=== PATIENT | male | born 1940 | race Caucasian/White ===

== ENCOUNTER 2016-10-06 06:29 | Emergency (ER) | payer OTHER ==
[~2016-10-06] VITALS: Ht 162.6 cm; Wt 80.8 kg
[~2016-10-06 06:29] MED LIST: CRG125 PO; HYZ/10015 PO; NRV/10 PO; PLV75 PO; PRD10 PO; PRLSR20 PO
[2016-10-06 06:31] VITALS: TEMP 36.5; Ht 162.6 cm; Wt 80.8 kg
[2016-10-06] MEDS ORDERED: PLV75 PO (06:47)
[2016-10-06] MEDS ORDERED: LOSA100T65 PO (06:47)
[2016-10-06] MEDS ORDERED: VNTHFA/IN PO (06:47)
[2016-10-06] MEDS ORDERED: LSX20 PO (06:47)
[2016-10-06] MEDS ORDERED: MoRPHine SULFATE 10 MG/ML CARP/VIAL IM STA (06:58)
--- NOTE | 2016-10-06 07:23 | DIAGNOSTIC IMAGING REPORT ---
LUMBAR SPINE 5 VIEWS HISTORY: Right-sided sciatica. COMPARISON: None. FINDINGS: There is no fracture. No subluxation. Moderate to severe disc space narrowing at L4-5 and mild disc space narrowing at L5-S1. There are endplate osteophytes seen throughout the lumbar spine. Moderate facet degenerative changes within the lower lumbar spine. IMPRESSION: No fracture or subluxation within the lumbar spine. Degenerative changes as described above. Electronically signed by: Marlon Lobo M.D. 10/06/2016 7:22 AM Dictated Date/Time: 10/06/2016 7:20 AM
--- NOTE | 2016-10-06 07:33 | EMERGENCY ROOM VISIT NOTE ---
History Report prepared by Amilcar: Markel Cortez Under the Supervision of: Dr. Marco Decker D.O. First contact with patient: 06:39 Chief Complaint: HIP PAIN Stated Complaint: PAIN IN HIP DOWN LEG History of Present Illness The patient is a 76 year old male who presents to the Emergency Room with complaints of persistent lower back pain that started around 3 days ago. He says that the pain came on after he was mowing grass. The patient states that he was not bending, twisting, or turning while he was mowing the grass. He adds that he has had pain down his right leg as well. The patient notes that he could not sleep well the past couple nights due to the pain. He says that he has never had this pain before. The patient denies any recent trauma or falls. He also denies any chest pain, new shortness of breath, abdominal pain, new cough, or weakness or numbness in his legs. The patient has not talked to his primary care physician about this. He says that he has hypertension, and he had his blood pressure medications recently switched. The patient did not take his medications this morning because he was concerned that they may be related to his pain. He says that he usually takes his medications around 0500. The patient says that his blood pressure usually runs around 140. He is an ex- smoker. The patient had a CT of his abdomen/pelvis on February 2014, which showed unremarkable vasculature. No numbness in his groin. Able to move his bowels and urinated without difficulty. Source of History: patient Onset: 3 days ago Position: back (lower) Symptom Intensity: causes him to have hard time sleeping Timing: other (persistent) Associated Symptoms: No cough (new), No chest pain, No SOB (new), No abdominal pain, No weakness (in legs), No numbness (in legs) Note: Associated symptoms: Pain down right leg. No recent trauma or falls. Review of Systems See HPI for pertinent positives & negatives. A total of 10 systems reviewed and were otherwise negative. Past Medical & Surgical Medical Problems: (1) Benign hypertension (2) Blindness of one eye (3) Carotid artery occlusion (4) Carpal tunnel syndrome (5) Cerebrovascular disease (6) Diverticular disease of colon (7) Gastroesophageal reflux disease (8) Hypertension Nos (9) Sleep apnea Surgical Problems: (1) s/p cardiac cath (2) s/p carpal tunnel surgery (3) s/p cataract surgery Family History Patient reports no known family medical history. Social History Smoking Status: Former Smoker Alcohol Use: occasionally Drug Use: none Marital Status: Housing Status: lives with significant other Occupation Status: retired Current/Historical Medications Scheduled Amlodipine Besylate (Amlodipine Besylate), 10 MG PO DAILY Carvedilol (Carvedilol), 12.5 MG PO BID Clopidogrel Bisulfate (Clopidogrel), 75 MG PO DAILYBB Furosemide (Furosemide), 10 MG PO DAILY Losartan Potassium (Cozaar), 100 MG PO DAILY Omeprazole (Prilosec), 20 MG PO DAILY Prednisone (Prednisone Tab), 1 TAB PO DAILY Scheduled PRN Albuterol Hfa (Ventolin Hfa), 2 PUFFS PO Q4 PRN for Wheezing Oxycodone Immediate Rel Tab (Roxicodone Ir), 5 MG PO Q6H PRN for Pain Allergies Coded Allergies: No Known Allergies (Unverified , 10/06/16) Physical Exam Vital Signs Date Time Temp Pulse Resp B/P (MAP) Pulse Ox O2 Delivery O2 Flow Rate FiO2 10/06/16 07:52 60 18 187/73 95 10/06/16 06:31 36.5 63 24 212/69 97 Room Air Physical Exam GENERAL: sitting up in chair, disheveled, no acute distress, non toxic EYE EXAM: normal conjunctiva OROPHARYNX: no exudate, no erythema, lips, buccal mucosa, and tongue normal and mucous membranes are moist NECK: supple, no nuchal rigidity, no adenopathy, non-tender LUNGS: Clear to auscultation. Normal chest wall mechanics HEART: no murmurs, S1 normal and S2 normal ABDOMEN: abdomen soft, non-tender, normo-active bowel sounds, no masses, no rebound or guarding. BACK: Acute reproducible tenderness over right SI joint tracking through his gluteus, down back of right leg SKIN: no rashes and no bruising UPPER EXTREMITIES: upper extremities are grossly normal. LOWER EXTREMITIES: Flexion extension of hip, knee, ankle, and EHL 5/5 bilaterally, patellar and Achilles reflexes are 2/4 bilaterally, gross sensations intact, able to walk on heels and toes. NEURO EXAM: Normal sensorium, cranial nerves II-XII grossly intact, normal speech, no gross weakness of arms. Medical Decision & Procedures ER Provider Diagnostic Interpretation: X-ray results as stated below per my review and the radiologist's interpretation : LUMBAR SPINE 5 VIEWS HISTORY: Right-sided sciatica. COMPARISON: None. FINDINGS: There is no fracture. No subluxation. Moderate to severe disc space narrowing at L4-5 and mild disc space narrowing at L5-S1. There are endplate osteophytes seen throughout the lumbar spine. Moderate facet degenerative changes within the lower lumbar spine. IMPRESSION: No fracture or subluxation within the lumbar spine. Degenerative changes as described above. Electronically signed by: Marlon Lobo M.D. 10/06/2016 7:22 AM Dictated Date/Time: 10/06/2016 7:20 AM Medications Administered Medications (Trade) Dose Ordered Sig/[place] Route Start Time Stop Time Status Last Admin Dose Admin Morphine Sulfate (MoRPHine SULFATE INJ) 6 mg NOW STAT IM 10/06/16 06:58 10/06/16 06:59 DC 10/06/16 07:04 6 MG ED Course ED COURSE: Vital signs were reviewed and showed hypertensive vitals. The patients medical record was reviewed The above diagnostic studies were performed and reviewed. ED treatments and interventions as stated above. 0651: The patient was evaluated in room B3B. A complete history and physical examination was performed. 0658: Ordered Morphine Sulfate Inj 6 mg IM. 0740: Upon reevaluation, the patient is feeling significantly better.I discussed my findings with the patient and he understands and agrees with the treatment plan. Based on the patients age, coexisting illnesses, exam and lab findings the decision to treat as an outpatient was made. The patient remained stable while under my care. The patient appeared well at the time of discharge. Medical Decision Differential diagnoses includes but is not limited to lumbar radiculopathy, muscle strain, facture, cauda equina, mass, and disc herniation. Medication Reconciliation: I attest that I have personally reviewed the patient' s current medication list. Blood pressure screening: Patient was found to have an elevated blood pressure and was referred to their primary doctor for recheck and further treatment. I instructed the patient on hypertension. Patient is a 76-year-old male who presents the ER with right lower back pain which radiates from his SI joint down the back of his right leg. It's reproducible on exam. He is neurologically intact able walk on heels and toes. Patellar and Achilles reflexes are intact. No weakness in his legs. No signs of cauda equina. He was hypertensive but notes he did not take any of his blood pressure medications this morning. He has no abdominal pain. X-rays of his lumbar spine are unremarkable. He is not diabetic. He is given IM morphine with improvement of his pain. He was discharged with sciatica and instructed to take steroids and pain medications as prescribed. Discussed with Pt concerning signs and symptoms to watch out for. Pt was instructed to follow up with their PCP and discussed with the patient their option to return to the ED at anytime for persistent or worsening symptoms. The appropriate anticipatory guidance and out-patient management, including indications for return to the emergency department, were explained at length to the patient and understood. [place] Drug Monitoring [place] Search Results: patient reviewed within database, no issues identified Impression Primary Impression: Sciatica Additional Impression: Hypertension Scribe Attestation The scribe's documentation has been prepared under my direction and personally reviewed by me in its entirety. I confirm that the note above accurately reflects all work, treatment, procedures, and medical decision making performed by me. Departure Information Dispostion Home / Self-Care Prescriptions Prednisone (Prednisone Tab) 20 Mg Tab 1 TAB PO DAILY for 5 Days, #5 TAB Prov: Marco Decker, DO 10/06/16 Oxycodone Immediate Rel Tab (ROXICODONE IR) 5 Mg Tab 5 MG PO Q6H Y for Pain, #20 TAB Prov: Marco Decker, DO 10/06/16 Referrals Richard Domínguez M.D. ([facility]) (PCP) Forms HOME CARE DOCUMENTATION FORM, IMPORTANT VISIT INFORMATION, WORK / SCHOOL INSTRUCTIONS Patient Instructions ED Sciatica, [facility] Additional Instructions Please follow up with your primary care doctor with in the next 24 hours. Any worsening of your symptoms, please return to the ED immediately. This includes weakness or numbness in the leg unable to move your bowels, unable to urinate, severe abdominal pain, passing out, or any other concerning signs or symptoms from your standpoint. You were given medications during this visit that will inhibit your ability to drive, operate machinery and work. Please do NOT drive, operate machinery or work for the next 12hrs. You were also given a prescription for a narcotic/oxy IR. While taking this medication you should also not drive, operate machinery and or work. Please take stool softeners while taking the narcotics prescribed. This will prevent constipation. Problem Qualifiers Primary Impression: Sciatica Laterality: unspecified laterality Qualified Codes: M54.30 - Sciatica, unspecified side Additional Impression: Hypertension Hypertension type: unspecified secondary hypertension Qualified Codes: I15.9 - Secondary hypertension, unspecified
[2016-10-06] MEDS ORDERED: PRED20TA2 PO (07:46)
[2016-10-06] MEDS ORDERED: OXYC1TAB3 PO (07:46)
[2016-10-06 07:52] VITALS: BP 187/73; PULSE 60; O2SAT 95
== END 2016-10-06 07:52 | disposition home or self-care (01) ==
LOC: C.EDB 06:30
DX: M53.3 Sacrococcygeal disorders, not elsewhere classified (principal); I10 Essential (primary) hypertension; I65.29 Occlusion and stenosis of unspecified carotid artery; K57.30 Diverticulosis of large intestine without perforation or abscess without bleeding; K21.9 Gastro-esophageal reflux disease without esophagitis; Z86.73 Personal history of transient ischemic attack (TIA), and cerebral infarction without residual deficits; Z98.61 Coronary angioplasty status; Z98.49 Cataract extraction status, unspecified eye; Z98.890 Other specified postprocedural states; Z79.899 Other long term (current) drug therapy; Z87.891 Personal history of nicotine dependence; Z88.5 Allergy status to narcotic agent; Z88.8 Allergy status to other drugs, medicaments and biological substances

== ENCOUNTER 2016-11-08 09:17 | Emergency (ER) | payer OTHER ==
[~2016-11-08] VITALS: Ht 162.6 cm; Wt 77.5 kg
[~2016-11-08 09:17] MED LIST changes: -HYZ/10015 PO; +LOSA100T65 PO; +LSX20 PO; +OXYC1TAB3 PO; -PRD10 PO; +VNTHFA/IN PO
[2016-11-08 09:19] VITALS: TEMP 36.5; Ht 162.6 cm; Wt 77.5 kg
[2016-11-08] MEDS ORDERED: KETOROLAC TROMETHAMINE 60 MG/2 ML VIAL IM STA (09:39)
[2016-11-08] MEDS ORDERED: MoRPHine SULFATE 10 MG/ML CARP/VIAL IM STA (09:39)
--- NOTE | 2016-11-08 09:53 | EMERGENCY ROOM VISIT NOTE ---
History Report prepared by Amilcar: Cee Marie Under the Supervision of: Dr. Sawyer Edwards M.D. First contact with patient: 09:32 Chief Complaint: LEG PAIN,LEG INJURY Stated Complaint: RIGHT LEG PAIN History of Present Illness The patient is a 76 year old male who presents to the Emergency Room with complaints of worsening right leg pain that started 1 month ago. He rates his discomfort as an 8/10 in severity. The pain starts in his right hip then radiates down to his midshin. He is also experiencing numbness from his right midshin distally. He denies groin numbness. The patient states that he cannot walk or stand for prolonged amounts of time secondary to the pain. The patient states that he is urinating and having bowel movements without difficulty. The patient was evaluated in the ED 1 month ago for back pain radiating into his right leg. He states that the back pain and leg pain started after mowing the grass. The patient denies any recent falls that could have contributed to his pain. When he was evaluated in the ED 1 month ago, he had unremarkable x-rays. When he was discharged from the ED, he was prescribed prednisone and oxycodone. He states that he has taken all of both medications so he does not have any left now. The oxycodone offered minimal relief of his pain. The patient followed up with his PCP, Dr. Domínguez, and he setup physical therapy for the patient. The patient states that he has gone to physical therapy about 8 times without any relief of his symptoms. The patient called his PCP to try to setup an appointment, but he could not see the patient until Saturday and the patient states that he could not wait that long. The patient denies any history of herniated discs. Source of History: patient Onset: 1 month ago Position: leg (right) Symptom Intensity: 8/10 Quality: other (right leg pain) Timing: worsening Modifying Factors (Relieving): other (None) Associated Symptoms: + numbness (right midshin distally) Note: no groin numbness, urinating and moving bowels without difficulty Review of Systems See HPI for pertinent positives & negatives. A total of 10 systems reviewed and were otherwise negative. Past Medical & Surgical Medical Problems: (1) Benign hypertension (2) Blindness of one eye (3) Carotid artery occlusion (4) Carpal tunnel syndrome (5) Cerebrovascular disease (6) Diverticular disease of colon (7) Gastroesophageal reflux disease (8) Hypertension Nos (9) Sleep apnea Surgical Problems: (1) s/p cardiac cath (2) s/p carpal tunnel surgery (3) s/p cataract surgery Family History Patient reports no known family medical history. Social History Smoking Status: Former Smoker Alcohol Use: occasionally Drug Use: none Marital Status: Housing Status: lives with significant other Occupation Status: retired Current/Historical Medications Scheduled Amlodipine Besylate (Amlodipine Besylate), 10 MG PO DAILY Carvedilol (Carvedilol), 12.5 MG PO BID Clopidogrel Bisulfate (Clopidogrel), 75 MG PO DAILYBB Furosemide (Furosemide), 10 MG PO DAILY Losartan Potassium (Cozaar), 100 MG PO DAILY Omeprazole (Prilosec), 20 MG PO DAILY Scheduled PRN Oxycodone Ir (Roxicodone Ir), 1-2 TAB PO Q4H PRN for Pain Allergies Coded Allergies: No Known Allergies (Unverified , 11/08/16) Physical Exam Vital Signs Date Time Temp Pulse Resp B/P (MAP) Pulse Ox O2 Delivery O2 Flow Rate FiO2 11/08/16 11:04 62 20 149/78 98 11/08/16 09:19 36.5 58 22 174/67 97 Room Air Physical Exam GENERAL: Patient is in no acute distress. HEENT: No acute trauma, normocephalic atraumatic, mucous membranes moist, no nasal congestion, no scleral icterus. NECK: No stridor, no adenopathy, no meningismus, trachea is midline. LUNGS: Clear to auscultation bilaterally, no wheeze, no rhonchi, breath sounds equal. HEART: Without murmurs gallops or rubs, regular rate and rhythm. ABDOMEN: Soft, nontender, bowel sounds positive, no hernias, no peritonitis. EXTREMITIES: No cyanosis or edema, full range of motion of all the joints without pain or difficulty, no signs for acute trauma. NEUROLOGIC: Oriented x 3, 2/4 patellar and Achilles reflexes in right lower extremity, no acute motor or sensory deficits, no focal weakness. SKIN: No rash, no jaundice, no diaphoresis. Medical Decision & Procedures Medications Administered Medications (Trade) Dose Ordered Sig/[place] Route Start Time Stop Time Status Last Admin Dose Admin Morphine Sulfate (MoRPHine SULFATE INJ) 6 mg NOW STAT IM 11/08/16 09:39 11/08/16 09:41 DC 11/08/16 10:01 6 MG Ketorolac Tromethamine (Toradol Inj) 60 mg NOW STAT IM 11/08/16 09:39 11/08/16 09:41 DC 11/08/16 10:01 60 MG ED Course 0934: The patient was evaluated in room B5. A complete history and physical exam was performed. 0939: Ordered Toradol Inj 60 mg IM, Morphine Sulfate 6 mg IM 1003: Discussed the patient's case with Dr. Catrachita Ordonez. He is going to refer the patient to orthopedics as an outpatient. He is also going to call the patient today. 1033: Reevaluated the patient. He is feeling much better. Discussed results and discharge instructions: he verbalized understanding and agreement. The patient is ready for discharge. Medical Decision Differential diagnoses considered include sciatica, disc disease, herniated disc , neurovascular compromise, fracture, nerve impingement. Medication Reconciliation: I attest that I have personally reviewed the patient' s current medication list. Blood Pressure Screening: Patient was found to have an elevated blood pressure and was referred to their primary doctor for recheck and further treatment. The patient presents with ongoing right leg pain and numbness for over the last month. He has tried prednisone, he has been to physical therapy. The pain is persisting. He has had x-rays that showed no evidence for lumbar fracture. The patient is urinating without difficulty. No weakness in the right lower extremity. On exam, his reflexes in the right lower extremity are intact. The patient was given IM morphine IM Toradol, he feels markedly better. I discussed this case with his primary doctor. The patient is being discharged to follow-up as an outpatient, likely with pain management. The patient was encouraged to return for worsening symptoms. He was prescribed oxycodone for pain relief as needed. [place] Search Results: patient reviewed within database, no issues identified Consults Time Called: 936 Consulting Physician: Dr. Catrachita Ordonez Returned Call: [phone] Discussed the patient's case with Dr. Catrachita Ordonez. He is going to refer the patient to orthopedics as an outpatient. He is also going to call the patient today. Impression Primary Impression: Sciatica Scribe Attestation The scribe's documentation has been prepared under my direction and personally reviewed by me in its entirety. I confirm that the note above accurately reflects all work, treatment, procedures, and medical decision making performed by me. Departure Information Dispostion Home / Self-Care Prescriptions Oxycodone Ir (Roxicodone Ir) 5 Mg Tab 1-2 TAB PO Q4H Y for Pain, #18 TAB Prov: Sawyer Edwards M.D. 11/08/16 Referrals No Doctor, Assigned (PCP) Forms HOME CARE DOCUMENTATION FORM, IMPORTANT VISIT INFORMATION Patient Instructions [facility] Additional Instructions oxy ir 1-2 tab every 4 hours for severe pain stool softner otc to prevent constipation you will receive a call from your doctor about further care and testing return if worsening Problem Qualifiers Primary Impression: Sciatica Laterality: right Qualified Codes: M54.31 - Sciatica, right side
[2016-11-08] MEDS ORDERED: OXYC1TAB3 PO (10:37)
[2016-11-08 11:04] VITALS: BP 149/78; PULSE 62; O2SAT 98
== END 2016-11-08 11:05 | disposition home or self-care (01) ==
LOC: C.EDB 09:18
DX: M54.40 Lumbago with sciatica, unspecified side (principal); I10 Essential (primary) hypertension; K57.30 Diverticulosis of large intestine without perforation or abscess without bleeding; K21.9 Gastro-esophageal reflux disease without esophagitis; G47.30 Sleep apnea, unspecified; Z86.73 Personal history of transient ischemic attack (TIA), and cerebral infarction without residual deficits; Z87.891 Personal history of nicotine dependence; Z79.899 Other long term (current) drug therapy; Z98.49 Cataract extraction status, unspecified eye

== ENCOUNTER 2019-03-10 00:45 | Inpatient (IN) ==
--- OUTSIDE RECORDS SUMMARY | 2019-03-10 00:48 | External Medical Summary | Continuity of Care Document ---
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 , M.D. Refills: 0 Losartan Potassium-HCTZ 100-25 MG Oral Tablet; TAKE 1 TABLET DAILY. , M.D. Refills: 0 Flexeril 10 MG TABS; TAKE 1 TABLET 3 TIMES DAILY NEEDED. , M.D. Refills: 0 amLODIPine Besylate 10 MG Oral Tablet; TAKE 1 TABLET DAILY. , M.D. Refills: 0 ProAir HFA 108 (90 Base) MCG/ACT Inhalat ion Aerosol Solution; INHALE 2 PUFFS EVERY 4-6 HOURS NEEDED. , M.D. Refills: 0 Plavix 75 MG Oral Tablet; TAKE 1 TABLET DAILY. , M.D. Quantity: 30 Refills: 5 Procedures History of Wrist Surgery Status: Complet ed History of Carotid Thromboendarterectomy Status: Completed Immunizations Immunizations not documented Family History Unknown Family Member Family history of Cancer Status: Active Comments: Famil y History Social History - Smoking Status Former smoker Plan of Treatment Planned Observations Planned Goals not documented Results No Known Results Results not documented
[2019-03-10] MEDS ORDERED: LORazepam 2 MG/4 ML VIAL ONE (00:49)
[2019-03-10] MEDS ORDERED: RAPID SEQUENCE INDUCTION BAG ONE (00:50)
[2019-03-10] MEDS ORDERED: LORazepam 1 MG/2 ML VIAL IV STA (00:54)
[2019-03-10] MEDS ORDERED: ALBUTEROL 0.083% NEBU SOLN 3 ML VIAL ONE (01:03)
[2019-03-10] MEDS ORDERED: ALBUT/IPRATROP 3MG/0.5MG NEB 3 ML VIAL ONE (01:03)
[2019-03-10 01:42] LABS: Basophils # (auto) 0.06 K/uL (0-0.2); Basophils % (auto) 0.5 %; Eosinophils # (auto) 0.35 K/uL (0-0.5); Eosinophils % (auto) 2.7 %; Hematocrit (blood only) 45.3 % (42-52); Hemoglobin 15.6 g/dL (14.0-18.0); Immature Granulocytes # (auto) 0.06 K/uL (0.00-0.02); Immature Granulocytes % (auto) 0.5 %; Lymphocytes # (auto) 1.23 K/uL (1.2-3.4); Lymphocytes % (auto) 9.4 %; Mean Corpuscular Hemoglobin 32.1 pg (25-34); Mean Corpuscular Hgb Conc 34.4 g/dL (32-36); Mean Corpuscular Volume 93.2 fL (80-100); Mean Platelet Volume 11.7 fL (7.4-10.4); Monocytes # (auto) 0.63 K/uL (0.11-0.59); Monocytes % (auto) 4.8 %; Neutrophils % (auto) 82.1 %; Platelet Count 195 K/uL (130-400); RDW Coefficient of Variation 13.6 % (11.5-14.5); RDW Standard Deviation 46.5 fL (36.4-46.3); Red Blood Count 4.86 M/uL (4.7-6.1); White Blood Count 13.03 K/uL (4.8-10.8)
[2019-03-10 01:52] LABS: Partial Thromboplastin Ratio 0.8; Partial Thromboplastin Time 20.7 Seconds (21.0-31.0); Prothrombin Time 10.4 Seconds (9.0-12.0)
[2019-03-10 02:15] LABS: Alanine Aminotransferase 35 U/L (12-78); Albumin Level 3.9 gm/dl (3.4-5.0); Alkaline Phosphatase 139 U/L (45-117); BUN Creatinine Ratio 14.6 (10-20); Bilirubin,Total 0.4 mg/dl (0.2-1); Blood Urea Nitrogen 22 mg/dl (7-18); Calcium 8.4 mg/dl (8.5-10.1); Carbon Dioxide 29 mmol/L (21-32); Chloride 105 mmol/L (98-107); Creatinine Clr Calc Pharmacy 41.4 ml/min; Est GFR (African American) 50.9; Est GFR (Non-African American) 43.9; Glucose 223 mg/dl (70-99); Lipase 117 U/L (73-393); NT Pro B Type Natriuretic Pept 140 pg/ml (0-1800); Sodium 141 mmol/L (136-145); Total Protein 7.1 gm/dl (6.4-8.2); Troponin I < 0.015 ng/ml (0-0.045)
[2019-03-10 02:20] LABS: Potassium 4.4 mmol/L (3.5-5.1)
[2019-03-10 02:25] LABS: Aspartate Aminotransferase 32 U/L (15-37); Bilirubin Direct 0.1 mg/dl (0-0.2); Magnesium 2.4 mg/dl (1.8-2.4)
[2019-03-10] MEDS ORDERED: FUROSEMIDE 40 MG/4 ML VIAL IV STA (02:30)
[2019-03-10 02:59] LABS: Appearance Urine Clear (Clear); Bacteria Urine Automated Negative (Negative); Bilirubin Urine Negative (Negative); Blood Urine Negative (Negative); Color Urine Yellow; Glucose Urine UA 3+ (Negative); Ketones Urine Negative (Negative); Leukocyte Esterase Urine Negative (Negative); Nitrite Urine Negative (Negative); Protein Urine 2+ (Negative); RBC Urine Automated 0-4 /hpf (0-4); Specific Gravity Urine 1.022 (1.000-1.030); Urobilinogen Urine Negative (Negative); pH Urine 6.5 (4.5-7.5)
[2019-03-10] MEDS ORDERED: ACETAMINOPHEN 325 MG TAB PO PRN (03:46)
[2019-03-10] MEDS ORDERED: NITROGLYCERIN SL 0.4 MG/TAB TAB SL PRN (03:46)
[2019-03-10] MEDS ORDERED: ONDANSETRON INJ 2 MG/ML 2 ML VIAL IV PRN (03:46)
[2019-03-10] MEDS ORDERED: ALBUT/IPRATROP 3MG/0.5MG NEB 3 ML VIAL NEB PRN (03:46)
[2019-03-10] MEDS ORDERED: POLYETHYLENE (MIRALAX) 17 GM PACK PO PRN (03:46)
[2019-03-10] MEDS ORDERED: ALBUTEROL HFA 8 GM INHALER INH PRN (03:46)
[2019-03-10 04:25] LABS: Basophils # (auto) 0.02 K/uL (0-0.2); Basophils % (auto) 0.2 %; Eosinophils # (auto) 0.08 K/uL (0-0.5); Eosinophils % (auto) 0.7 %; Hematocrit (blood only) 46.8 % (42-52); Hemoglobin 16.2 g/dL (14.0-18.0); Immature Granulocytes # (auto) 0.04 K/uL (0.00-0.02); Immature Granulocytes % (auto) 0.4 %; Lymphocytes # (auto) 0.82 K/uL (1.2-3.4); Lymphocytes % (auto) 7.3 %; Mean Corpuscular Hemoglobin 31.8 pg (25-34); Mean Corpuscular Hgb Conc 34.6 g/dL (32-36); Mean Corpuscular Volume 91.8 fL (80-100); Mean Platelet Volume 11.2 fL (7.4-10.4); Monocytes # (auto) 0.74 K/uL (0.11-0.59); Monocytes % (auto) 6.6 %; Neutrophils # (auto) 9.53 K/uL (1.4-6.5); Neutrophils % (auto) 84.8 %; Platelet Count 205 K/uL (130-400); RDW Coefficient of Variation 13.5 % (11.5-14.5); RDW Standard Deviation 45.7 fL (36.4-46.3); White Blood Count 11.23 K/uL (4.8-10.8)
[2019-03-10 04:32] LABS: Base Excess ABG 3.3 mEq/L (-9-1.8); HCO3 ABG 29 mmol/L (19-24); Oxygen Saturation ABG 96.8 % (90-95); PCO2 ABG 45 mmHg (35-46); PO2 ABG 87 mm/Hg (80-95); pH ABG 7.42 (7.35-7.45)
[2019-03-10 04:43] LABS: BUN Creatinine Ratio 16.7 (10-20); Creatinine Clr Calc Pharmacy 44.3 ml/min; Est GFR (African American) 59.8; Est GFR (Non-African American) 51.6; Magnesium 2.6 mg/dl (1.8-2.4); Potassium 4.1 mmol/L (3.5-5.1)
[2019-03-10 04:44] LABS: Allen Test POS (Pos)
--- NOTE | 2019-03-10 04:49 | Emergency Department Note ---
Entered by Missy Padilla acting as a scribe for Turner Johnson MD ED Provider Note Name: Rex Barrera Age: 78 M Arrives Via: EMS Informant: EMS, Patient and CC: Respiratory distress distress HPI: 78 year old male arrives for evaluation of respiratory distress that was noted prior to arrival. EMS states that the patient was sitting on his porch when 911 was called. EMS reports that when they arrived the patients oxygen was in the mid 80s. EMS confirms that the patient had trouble breathing and went into respiratory distress. EMS denies that the patient when into cardiac arrest or that they started compressions. The patient denies, chest pain, headache or experiencing symptoms like this before. The patient's states that the patient had shortness of breath for a week that worsened when laying down. The patient's denies that the patient has a fever, chills, chest pain or experienced syncope. ROS: See above HPI for pertinent positives & negatives. A total of 10 systems reviewed and were otherwise negative. Past Medical History: See list below Past Surgical History: See list below Family History: See list below Social History: See list below Home Medications: See list below Allergies No known allergies Physical: Vitals: BP 152/92, P 83, R 36, O2 98% on BiPAP, Temp 35 C. Exam: GENERAL: Patient is severely unwell appearing and in severe acute distress. Thrashing around on bed. Diaphoretic. EYES: No scleral icterus, blown right pupil. Hay (patient states chronic) ENT: Mucous membranes moist, no nasal congestion. NECK: No masses appreciated, no meningismus, trachea is midline. RESPIRATORY: Dyspneic. Tachypneic. Decreased breath sounds throughout. Crackles throughout. No wheeze, no rhonchi. CARDIOVASCULAR: Regular rate and rhythm. No murmurs, rubs, gallops appreciated. GASTROINTESTINAL: Abdomen soft, non-tender, no peritonitis. Bowel sounds positive. No masses appreciated. BACK: No midline tenderness, no CVA tenderness EXTREMITIES: Normal motion all extremities, no cyanosis, no edema. NEUROLOGIC: Alert and oriented, no acute motor or sensory deficits, no focal weakness, cranial nerves grossly intact. SKIN: No rash, no jaundice, no diaphoresis. ED Course: Prior Medical Record, Triage/Nursing Notes, Medications, Allergies reviewed by Me Vital Signs: reviewed and remarkable for HTN Labs: Reviewed and remarkable for +lactic acid, low pH ABG Interventions: saline lock, lasix 40mg IV, BIPAP Imaging: X ray results are stated below per my interpretation: Chest: 1 view: Moderate congestive failure compared to previous cxr EKG: Per My Interpretation: Indication Shortness of breath: NSR 70 bpm no ectopy no ischtmie, intraventricular block non-specific, qtc 442. No recent for comparison. Blood pressure: Elevated - Referred to Hospitalist, [place] to be Situation Course: 0046: Past medical records reviewed. The patient was evaluated in room B1. A complete history and physical exam was performed. 0116. I reassessed the patient who is somnolent but awakens. The patient is currently breathing normally. 0200: I reassessed the patient who is breathing comfortably on BiPAP. The patient is still sleepy but awaken to voice. 0230: I reviewed the patient's case with Wilma Laureano [facility]. He will evaluate the patient for further management and will administer a round of Lasix. 0240: I reassessed the patient who is stable. Consults: 0230: I reviewed the patient's case with Wilma Laureano [facility]. He will evaluate the patient for further management and will administer a round of Lasix. Disposition: Hospitalization Differentials: infection, reactive airway disease, pneumonia, pneumothorax, COPD, CHF, cardiac ischemia, pulmonary embolism, musculoskeletal, gastrointestinal as well as others were entertained. Medical Decision Makin yr old male with 1 week worsening shortness of breath, worse with exertion and laying flat arrives in acute respiratory distress after respiratory arrest without cardiac arrest as outpatient. Awake though very agitated on arrival and not tolerating bipap. Given 1 mg IV Ativan with vast improvement in agitation and then tolerating bipap. Sats good. LA elevated consistent with event though without fever nor significant WBC elevation seems less likely infectious related. Exam with minimal breath sounds throughout. No wheezing appreciated. No history of COPD no evidence of this. No previous PE/DVT history and with resolution of hypoxia, no tachy, no hypotensive, will hold off on CT PE at this time. CXR likely moderate congestion though not pulmonary edema, though may be due to fact on PPV for some time prior to CXR. With story likely cause is CHF and will give lasix as BP should tolerate this. Hospitalist in to evaluate and bring in for further management. Impression: Respiratory Failure Congestive Heart Failure Critical Care Time: I have personally spent greater than 35 minutes of critical care time in the direct management of this patient. Respiratory failure requiring BIPAP. This was a life/limb threatening event. This includes time spent evaluating patient, direct bedside care, chart review, placing orders, interpretation of diagnostic studies, discussion with consultants, patient, and family members, as well as other required patient management activities. This 35 minutes is in excess of all separately billable procedures. The scribe's documentation has been prepared under my direction and personally reviewed by me in its entirety. I confirm that the note above accurately r eflects all work, treatment, procedures, and medical decision making performed by me. Turner Johnson MD Impression & Plan Respiratory failure, Congestive heart failure Past Med/Surg History Social History Communication Ability: Effective Beliefs That Will Affect Care: None Current Living Situation: Spouse Other Information That Helps Us Care for You: No Feels Safe at Home: Yes Safety Concerns: Feels Safe At This Time Smoking Status: Never smoker Hx Alcohol Use: No Hx Substance Use: No Results & Data Vital Signs Vital Signs - 24 hr 03/10/19 00:47 03/10/19 00:50 03/10/19 00:55 Temperature 35 C L Temperature Source Axillary Sepsis Recent Fever Within 48 Hours No Sepsis New/Unexplained Change in Mental Status No Sepsis Action Taken by Nursing No Action Required Pulse Rate 83 73 74 Pulse Rate from SpO2 Sensor 75 Pulse Rhythm Regular Respiratory Rate 36 H 24 38 H Respiratory Effort / Characteristics Labored Spontaneous Labored Respiratory Depth Shallow Normal Respiratory Pattern Rapid/Shallow Regular Blood Pressure 158/92 H Blood Pressure Mean 114 Pulse Oximetry 98 98 98 Oxygen Delivery Method BiPAP Oxygen Flow Rate 100 Fraction of Inspired Oxygen 100 100 SaO2/FiO2 Ratio 98 03/10/19 01:00 03/10/19 01:10 03/10/19 01:20 Temperature Temperature Source Sepsis Recent Fever Within 48 Hours Sepsis New/Unexplained Change in Mental Status Sepsis Action Taken by Nursing Pulse Rate 70 67 65 Pulse Rate from SpO2 Sensor 71 68 64 Pulse Rhythm Respiratory Rate 28 H 24 25 H Respiratory Effort / Characteristics Respiratory Depth Respiratory Pattern Blood Pressure Blood Pressure Mean Pulse Oximetry 98 97 95 Oxygen Delivery Method Oxygen Flow Rate Fraction of Inspired Oxygen SaO2/FiO2 Ratio 03/10/19 01:30 03/10/19 01:31 03/10/19 01:37 Temperature 36.5 C Temperature Source Oral Sepsis Recent Fever Within 48 Hours Sepsis New/Unexplained Change in Mental Status Sepsis Action Taken by Nursing Pulse Rate 69 67 Pulse Rate from SpO2 Sensor 68 70 Pulse Rhythm Respiratory Rate 31 H 21 Respiratory Effort / Characteristics Respiratory Depth Respiratory Pattern Blood Pressure 136/84 Blood Pressure Mean 101 Pulse Oximetry 95 94 Oxygen Delivery Method Oxygen Flow Rate Fraction of Inspired Oxygen SaO2/FiO2 Ratio 03/10/19 01:40 03/10/19 01:50 03/10/19 02:00 Temperature Temperature Source Sepsis Recent Fever Within 48 Hours Sepsis New/Unexplained Change in Mental Status Sepsis Action Taken by Nursing Pulse Rate 61 58 L 55 L Pulse Rate from SpO2 Sensor 64 57 L 55 L Pulse Rhythm Respiratory Rate 26 H 25 H 22 Respiratory Effort / Characteristics Respiratory Depth Respiratory Pattern Blood Pressure Blood Pressure Mean Pulse Oximetry 96 97 98 Oxygen Delivery Method Oxygen Flow Rate Fraction of Inspired Oxygen SaO2/FiO2 Ratio 03/10/19 02:01 03/10/19 02:10 03/10/19 02:20 Temperature Temperature Source Sepsis Recent Fever Within 48 Hours Sepsis New/Unexplained Change in Mental Status Sepsis Action Taken by Nursing Pulse Rate 56 L 56 L 56 L Pulse Rate from SpO2 Sensor 56 L 56 L 56 L Pulse Rhythm Respiratory Rate 23 22 22 Respiratory Effort / Characteristics Respiratory Depth Respiratory Pattern Blood Pressure 129/65 Blood Pressure Mean 86 Pulse Oximetry 98 99 100 Oxygen Delivery Method Oxygen Flow Rate Fraction of Inspired Oxygen SaO2/FiO2 Ratio 03/10/19 02:30 03/10/19 02:31 03/10/19 02:40 Temperature Temperature Source Sepsis Recent Fever Within 48 Hours Sepsis New/Unexplained Change in Mental Status Sepsis Action Taken by Nursing Pulse Rate 55 L 55 L 62 Pulse Rate from SpO2 Sensor 55 L 56 L 63 Pulse Rhythm Respiratory Rate 24 17 22 Respiratory Effort / Characteristics Respiratory Depth Respiratory Pattern Blood Pressure 143/86 H Blood Pressure Mean 105 Pulse Oximetry 100 100 100 Oxygen Delivery Method Oxygen Flow Rate Fraction of Inspired Oxygen SaO2/FiO2 Ratio 03/10/19 02:50 03/10/19 03:00 03/10/19 03:01 Temperature Temperature Source Sepsis Recent Fever Within 48 Hours Sepsis New/Unexplained Change in Mental Status Sepsis Action Taken by Nursing Pulse Rate 64 63 64 Pulse Rate from SpO2 Sensor 63 62 63 Pulse Rhythm Respiratory Rate 17 21 23 Respiratory Effort / Characteristics Respiratory Depth Respiratory Pattern Blood Pressure 163/94 H Blood Pressure Mean 117 Pulse Oximetry 100 100 100 Oxygen Delivery Method BiPAP BiPAP Oxygen Flow Rate Fraction of Inspired Oxygen 50 50 SaO2/FiO2 Ratio Laboratory Data Result diagrams: 03/10/19 04:17 03/10/19 04:17 Lab Results 03/10/19 03/10/19 03/10/19 Range/Units 01:19 01:19 01:19 WBC 13.03 H (4.8-10.8) K/uL RBC 4.86 (4.7-6.1) M/uL Hgb 15.6 (14.0-18.0) g/dL Hct 45.3 (42-52) % MCV 93.2 (80-100) fL MCH 32.1 (25-34) pg MCHC 34.4 (32-36) g/dL RDW Std Deviation 46.5 H (36.4-46.3) fL RDW Coeff of Tay 13.6 (11.5-14.5) % Plt Count 195 (130-400) K/uL MPV 11.7 H (7.4-10.4) fL Immature Gran % (Auto) 0.5 % Neut % (Auto) 82.1 % Lymph % (Auto) 9.4 % Ponce % (Auto) 4.8 % Eos % (Auto) 2.7 % Baso % (Auto) 0.5 % Immature Gran # (Auto) 0.06 H (0.00-0.02) K/uL Neut # (Auto) 10.70 H (1.4-6.5) K/uL Lymph # (Auto) 1.23 (1.2-3.4) K/uL Ponce # (Auto) 0.63 H (0.11-0.59) K/uL Eos # (Auto) 0.35 (0-0.5) K/uL Baso # (Auto) 0.06 (0-0.2) K/uL PT 10.4 (9.0-12.0) Seconds INR 1.0 (0.9-1.1) APTT 20.7 L (21.0-31.0) Seconds PTT Ratio 0.8 Sodium 141 (136-145) mmol/L Potassium 4.4 (3.5-5.1) mmol/L Chloride 105 (98-107) mmol/L Carbon Dioxide 29 (21-32) mmol/L Anion Gap 7.0 (3-11) BUN 22 H (7-18) mg/dl Creatinine 1.52 H (0.6-1.4) mg/dl Est Cr Clr Drug Dosing 41.4 ml/min Est GFR ( Amer) 50.9 Est GFR (Non-Af Amer) 43.9 BUN/Creatinine Ratio 14.6 (10-20) Glucose 223 H (70-99) mg/dl Lactate (0.4-2.0) mmol/L Calcium 8.4 L (8.5-10.1) mg/dl Magnesium 2.4 (1.8-2.4) mg/dl Total Bilirubin 0.4 (0.2-1) mg/dl Direct Bilirubin 0.1 (0-0.2) mg/dl AST 32 (15-37) U/L ALT 35 (12-78) U/L Alkaline Phosphatase 139 H (45-117) U/L Troponin I < 0.015 (0-0.045) ng/ml NT-Pro-B Natriuret Pep 140 (0-1800) pg/ml Total Protein 7.1 (6.4-8.2) gm/dl Albumin 3.9 (3.4-5.0) gm/dl Lipase 117 (73-393) U/L Urine Color Urine Appearance (Clear) Urine pH (4.5-7.5) Ur Specific [place] (1.000-1.030) Urine Protein (Negative) Urine Glucose (UA) (Negative) Urine Ketones (Negative) Urine Blood (Negative) Urine Nitrite (Negative) Urine Bilirubin (Negative) Urine Urobilinogen (Negative) Ur Leukocyte Esterase (Negative) Urine WBC (Auto) (0-5) /hpf Urine RBC (Auto) (0-4) /hpf U Hyaline Cast (Auto) (0-5) /lpf U Epithel Cells (Auto) (0-5) /lpf Urine Bacteria (Auto) (Negative) Influenza Type A Ag (Neg) Influenza Type B Ag (Neg) 03/10/19 03/10/19 03/10/19 Range/Units 01:19 01:52 02:45 WBC (4.8-10.8) K/uL RBC (4.7-6.1) M/uL Hgb (14.0-18.0) g/dL Hct (42-52) % MCV (80-100) fL MCH (25-34) pg MCHC (32-36) g/dL RDW Std Deviation (36.4-46.3) fL RDW Coeff of Tay (11.5-14.5) % Plt Count (130-400) K/uL MPV (7.4-10.4) fL Immature Gran % (Auto) % Neut % (Auto) % Lymph % (Auto) % Ponce % (Auto) % Eos % (Auto) % Baso % (Auto) % Immature Gran # (Auto) (0.00-0.02) K/uL Neut # (Auto) (1.4-6.5) K/uL Lymph # (Auto) (1.2-3.4) K/uL Ponce # (Auto) (0.11-0.59) K/uL Eos # (Auto) (0-0.5) K/uL Baso # (Auto) (0-0.2) K/uL PT (9.0-12.0) Seconds INR (0.9-1.1) APTT (21.0-31.0) Seconds PTT Ratio Sodium (136-145) mmol/L Potassium (3.5-5.1) mmol/L Chloride (98-107) mmol/L Carbon Dioxide (21-32) mmol/L Anion Gap (3-11) BUN (7-18) mg/dl Creatinine (0.6-1.4) mg/dl Est Cr Clr Drug Dosing ml/min Est GFR ( Amer) Est GFR (Non-Af Amer) BUN/Creatinine Ratio (10-20) Glucose (70-99) mg/dl Lactate 2.6 H* (0.4-2.0) mmol/L Calcium (8.5-10.1) mg/dl Magnesium (1.8-2.4) mg/dl Total Bilirubin (0.2-1) mg/dl Direct Bilirubin (0-0.2) mg/dl AST (15-37) U/L ALT (12-78) U/L Alkaline Phosphatase (45-117) U/L Troponin I (0-0.045) ng/ml NT-Pro-B Natriuret Pep (0-1800) pg/ml Total Protein (6.4-8.2) gm/dl Albumin (3.4-5.0) gm/dl Lipase (73-393) U/L Urine Color Yellow Urine Appearance Clear (Clear) Urine pH 6.5 (4.5-7.5) Ur Specific [place] 1.022 (1.000-1.030) Urine Protein 2+ H (Negative) Urine Glucose (UA) 3+ H (Negative) Urine Ketones Negative (Negative) Urine Blood Negative (Negative) Urine Nitrite Negative (Negative) Urine Bilirubin Negative (Negative) Urine Urobilinogen Negative (Negative) Ur Leukocyte Esterase Negative (Negative) Urine WBC (Auto) 1-5 (0-5) /hpf Urine RBC (Auto) 0-4 (0-4) /hpf U Hyaline Cast (Auto) 1-5 (0-5) /lpf U Epithel Cells (Auto) 10-20 H (0-5) /lpf Urine Bacteria (Auto) Negative (Negative) Influenza Type A Ag Neg for Influ A (Neg) Influenza Type B Ag Neg for Influ B (Neg) Administered Medications Discontinued Medications Furosemide (Lasix) 40 mg IV NOW STA Stop: 03/10/19 02:31 Last Admin: 03/10/19 02:42 Dose: 40 mg Documented by: [id number] Lorazepam (Ativan) 1 mg in 2 mls @ 2 mls/min IV NOW STA Stop: 03/10/19 00:55 Last Admin: 03/10/19 00:51 Dose: 2 mls/min Documented by: [id number] Lorazepam (Ativan) Confirm Administered Dose 2 mg .ROUTE .STK-MED ONE Stop: 03/10/19 00:50 Last Admin: 03/10/19 01:11 Dose: Not Given Documented by: [id number] Miscellaneous () Confirm Administered Dose 1 ea .ROUTE .STK-MED ONE Stop: 03/10/19 00:51 Last Admin: 03/10/19 01:11 Dose: Not Given Documented by: [id number] Medical Decision Making Laboratory Data Result diagrams: 03/10/19 04:17 03/10/19 04:17 Lab Results 03/10/19 03/10/19 03/10/19 Range/Units 01:19 01:19 01:19 WBC 13.03 H (4.8-10.8) K/uL RBC 4.86 (4.7-6.1) M/uL Hgb 15.6 (14.0-18.0) g/dL Hct 45.3 (42-52) % MCV 93.2 (80-100) fL MCH 32.1 (25-34) pg MCHC 34.4 (32-36) g/dL RDW Std Deviation 46.5 H (36.4-46.3) fL RDW Coeff of Tay 13.6 (11.5-14.5) % Plt Count 195 (130-400) K/uL MPV 11.7 H (7.4-10.4) fL Immature Gran % (Auto) 0.5 % Neut % (Auto) 82.1 % Lymph % (Auto) 9.4 % Ponce % (Auto) 4.8 % Eos % (Auto) 2.7 % Baso % (Auto) 0.5 % Immature Gran # (Auto) 0.06 H (0.00-0.02) K/uL Neut # (Auto) 10.70 H (1.4-6.5) K/uL Lymph # (Auto) 1.23 (1.2-3.4) K/uL Ponce # (Auto) 0.63 H (0.11-0.59) K/uL Eos # (Auto) 0.35 (0-0.5) K/uL Baso # (Auto) 0.06 (0-0.2) K/uL PT 10.4 (9.0-12.0) Seconds INR 1.0 (0.9-1.1) APTT 20.7 L (21.0-31.0) Seconds PTT Ratio 0.8 Sodium 141 (136-145) mmol/L Potassium 4.4 (3.5-5.1) mmol/L Chloride 105 (98-107) mmol/L Carbon Dioxide 29 (21-32) mmol/L Anion Gap 7.0 (3-11) BUN 22 H (7-18) mg/dl Creatinine 1.52 H (0.6-1.4) mg/dl Est Cr Clr Drug Dosing 41.4 ml/min Est GFR ( Amer) 50.9 Est GFR (Non-Af Amer) 43.9 BUN/Creatinine Ratio 14.6 (10-20) Glucose 223 H (70-99) mg/dl Lactate (0.4-2.0) mmol/L Calcium 8.4 L (8.5-10.1) mg/dl Magnesium 2.4 (1.8-2.4) mg/dl Total Bilirubin 0.4 (0.2-1) mg/dl Direct Bilirubin 0.1 (0-0.2) mg/dl AST 32 (15-37) U/L ALT 35 (12-78) U/L Alkaline Phosphatase 139 H (45-117) U/L Troponin I < 0.015 (0-0.045) ng/ml NT-Pro-B Natriuret Pep 140 (0-1800) pg/ml Total Protein 7.1 (6.4-8.2) gm/dl Albumin 3.9 (3.4-5.0) gm/dl Lipase 117 (73-393) U/L Urine Color Urine Appearance (Clear) Urine pH (4.5-7.5) Ur Specific [place] (1.000-1.030) Urine Protein (Negative) Urine Glucose (UA) (Negative) Urine Ketones (Negative) Urine Blood (Negative) Urine Nitrite (Negative) Urine Bilirubin (Negative) Urine Urobilinogen (Negative) Ur Leukocyte Esterase (Negative) Urine WBC (Auto) (0-5) /hpf Urine RBC (Auto) (0-4) /hpf U Hyaline Cast (Auto) (0-5) /lpf U Epithel Cells (Auto) (0-5) /lpf Urine Bacteria (Auto) (Negative) Influenza Type A Ag (Neg) Influenza Type B Ag (Neg) 03/10/19 03/10/19 03/10/19 Range/Units 01:19 01:52 02:45 WBC (4.8-10.8) K/uL RBC (4.7-6.1) M/uL Hgb (14.0-18.0) g/dL Hct (42-52) % MCV (80-100) fL MCH (25-34) pg MCHC (32-36) g/dL RDW Std Deviation (36.4-46.3) fL RDW Coeff of Tay (11.5-14.5) % Plt Count (130-400) K/uL MPV (7.4-10.4) fL Immature Gran % (Auto) % Neut % (Auto) % Lymph % (Auto) % [place] % (Auto) % Eos % (Auto) % Baso % (Auto) % Immature Gran # (Auto) (0.00-0.02) K/uL Neut # (Auto) (1.4-6.5) K/uL Lymph # (Auto) (1.2-3.4) K/uL Ponce # (Auto) (0.11-0.59) K/uL Eos # (Auto) (0-0.5) K/uL Baso # (Auto) (0-0.2) K/uL PT (9.0-12.0) Seconds INR (0.9-1.1) APTT (21.0-31.0) Seconds PTT Ratio Sodium (136-145) mmol/L Potassium (3.5-5.1) mmol/L Chloride (98-107) mmol/L Carbon Dioxide (21-32) mmol/L Anion Gap (3-11) BUN (7-18) mg/dl Creatinine (0.6-1.4) mg/dl Est Cr Clr Drug Dosing ml/min Est GFR ( Amer) Est GFR (Non-Af Amer) BUN/Creatinine Ratio (10-20) Glucose (70-99) mg/dl Lactate 2.6 H* (0.4-2.0) mmol/L Calcium (8.5-10.1) mg/dl Magnesium (1.8-2.4) mg/dl Total Bilirubin (0.2-1) mg/dl Direct Bilirubin (0-0.2) mg/dl AST (15-37) U/L ALT (12-78) U/L Alkaline Phosphatase (45-117) U/L Troponin I (0-0.045) ng/ml NT-Pro-B Natriuret Pep (0-1800) pg/ml Total Protein (6.4-8.2) gm/dl Albumin (3.4-5.0) gm/dl Lipase (73-393) U/L Urine Color Yellow Urine Appearance Clear (Clear) Urine pH 6.5 (4.5-7.5) Ur Specific [place] 1.022 (1.000-1.030) Urine Protein 2+ H (Negative) Urine Glucose (UA) 3+ H (Negative) Urine Ketones Negative (Negative) Urine Blood Negative (Negative) Urine Nitrite Negative (Negative) Urine Bilirubin Negative (Negative) Urine Urobilinogen Negative (Negative) Ur Leukocyte Esterase Negative (Negative) Urine WBC (Auto) 1-5 (0-5) /hpf Urine RBC (Auto) 0-4 (0-4) /hpf U Hyaline Cast (Auto) 1-5 (0-5) /lpf U Epithel Cells (Auto) 10-20 H (0-5) /lpf Urine Bacteria (Auto) Negative (Negative) Influenza Type A Ag Neg for Influ A (Neg) Influenza Type B Ag Neg for Influ B (Neg) MDM Narrative Discharge Plan Visit Data *Final* Discharge Date/Time: 03/10/19 03:26 Chief Complaint: Respiratory Distress Stated Complaint: RESPIRATORY DISTRESS ED Provider: Turner Johnson Discharge Problem: Respiratory failure, Congestive heart failure Patient Disposition: Admitted As Inpatient Discharge Instructions Interventions: ED Discharge Assessment Last Done: 03/10/19 03:26 Discharge Problem: Respiratory failure Qualifiers: Chronicity: acute Respiratory failure complication: hypoxia Qualified Code(s): J96.01 - Acute respiratory failure with hypoxia Congestive heart failure Qualifiers: Heart failure type: systolic Heart failure chronicity: acute Qualified Code(s): I50.21 - Acute systolic (congestive) heart failure The scribe's documentation has been prepared under my direction and personally reviewed by me in its entirety. I confirm that the note above accurately reflects all work, treatment, procedures, and medical decision making performed by me.
[2019-03-10] MEDS: FAMOTIDINE 20 MG in SYRINGE 3 ML IV SCH ×2 (05:04→21:22)
[2019-03-10] MEDS: methylPREDNISolone 40 MG in SYRINGE 0 ML IV SCH ×2 (05:05→13:26)
[2019-03-10] MEDS: HEPARIN SOD 5,000 UNIT/0.5 ML VIAL SQ SCH ×3 (05:05→21:23)
[2019-03-10] MEDS: DOXYCYCLINE HYCLATE 100 MG in DEXTROSE 5% 100 ML IV SCH ×2 (05:05→17:04)
[2019-03-10] MEDS: cefTRIAXone SODIUM 2,000 MG in DEXTROSE 5% 50 ML IV SCH (05:05)
--- NOTE | 2019-03-10 05:55 | History and Physical Report ---
DATE OF ADMISSION: 03/10/2019 CHIEF COMPLAINT: Shortness of breath, respiratory distress and respiratory arrest. 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 As per , the patient was complaining of cough since last 1 week, bringing up yellowish phlegm. In the last couple of days, he is feeling somewhat short of breath. In the middle of night at 11:00, he woke up and was complaining that he could not breathe and they went out to porch to get some air. He suddenly collapsed and EMS was called and EMS bagged him and put him on CPAP and brought him here. Initially, he was somewhat agitated, so ER physician gave him some Ativan. Currently, he is saturating okay on BiPAP. Hemodynamics stable. Currently, he is alert and awake and oriented. His labs showed white count of 13, creatinine of 1.5. Lactate of 2.6, sugars 223. Troponin is negative. UA is unremarkable. Flu is negative. Chest x-ray shows mild congestion. In the ER, he was given a dose of IV Lasix. The patient currently complaints of heartburn. Denies any chest pain. When he coughs, he gets epigastric pain No diarrhea or constipation. No swelling in the legs, no rash. As per and daughter, he quit smoking about 20 years ago. As per the epic, he smoked 1.5 packs a day for 20 years. He was wheezing on exam. He presented with orthopnea and shortness of breath and wheezing in February 2014. At that time, he was treated with steroids and nebs, and improved. CT chest with no significant findings at that time and got discharged. No fevers or chills at home. No nausea, no vomiting, no headaches. During epsiode no shaking of the body. ALLERGIES: No known drug allergies. PAST MEDICAL HISTORY: As mentioned above. PAST SURGICAL HISTORY: carpal tunnel surgery, left heart catheterization, colonoscopy, lumbar spinal shot, lens extraction phacofragmentation, right carotid endarterectomy. MEDICATIONS: The patient is on losartan 100 mg p.o. daily, amlodipine 10 mg p.o. daily, albuterol 2 puffs every 4 hours p.r.n., Lasix 20 mg p.o. daily, Coreg 12.5 mg p.o. b.i.d., Plavix 75 mg p.o. daily, omeprazole 20 mg p.o. daily. FAMILY HISTORY: Significant for: Brother had liver cancer. Mother had leukemia, sister had cancer. Father has also hypertension. Son has hypertension. Daughter has bipolar. SOCIAL HISTORY: Former smoker, smoked 1.5 pack a day for 20 years quit smoking about 20 years ago. No alcohol use, no drug use. and lives with his . REVIEW OF SYMPTOMS: As per HPI. Could not get complete review of systems as the patient is on BiPAP and initially was somewhat drowsy. PHYSICAL EXAMINATION: GENERAL: Initially was drowsy, but currently alert and awake. VITAL SIGNS: Temperature 36.5, pulse 64, respiratory rate 23, blood pressure 160/94, oxygen 100% on BiPAP, currently on 50% FIO2. HEENT: Right eye is blind. Left eye pupil is reactive to light. NECK: No JVD, no neck masses, no carotid bruits. CARDIOVASCULAR: S1, S2 heard, regular rate and rhythm, no murmur, no gallop. RESPIRATORY SYSTEM: Normal AP diameter. No accessory muscle use. Bilateral wheezing heard, mild bibasilar crackles?. ABDOMEN: Soft, bowel sounds present. Epigastric tenderness present, no guarding, no rigidity. Erythematous rash in lower abdomen. EXTREMITIES: No edema, no erythema. LABORATORY DATA: WBC 13, hemoglobin 15.6, hematocrit 45.3, platelets 195. PT 12.4, INR 1, APTT 20.7. Sodium 141, potassium 4.4, chloride 105, bicarbonate 29, BUN 22, creatinine 1.52, serum glucose 223, lactate 2.6, calcium 8.4, magnesium 2.4, total bilirubin 0.48, direct bilirubin 0.1, AST 32, ALT 35, alkaline phosphatase is 139. Troponin I less than 0.015. BNP 140. Lipase 117. Urinalysis positive for glucose. Influenza A and B negative. Chest x-ray, possible mild congestion. EKG: Normal sinus rhythm, rate of 70, septal infarct age indeterminate, nonspecific T-wave abnormalities. ASSESSMENT AND PLAN: This is a 78-year-old male who presents with acute respiratory distress and arrest. 1. Acute respiratory distress, passed out in front of his porch, complained of shortness of breath before passing out. EMS bagged him and put him on CPAP and in ER when he came in somewhat agitated and Ativan was given. Currently on BiPAP and saturating fine, hemodynamically stable and alert and awake and oriented, wheezing on exam. Chest x-ray, pulmonary mild congestion. No records of CHF in the past. ACUTE CHF? On 20 mg of Lasix at home, received 40 of IV Lasix in the ER. We will monitor the response. Reyes was placed. Follow I's and O's, daily weights. The patient was wheezing and the patient has history of smoking, he smoked 1.5 packs for 20 years. As per the family, he quit smoking 20 years ago, possibly chronic obstructive pulmonary disease exacerbation , having cough since the last 1 week with phlegm. We will follow the sputum culture and blood cultures. Empirically, started on IV Rocephin, IV doxycycline. Place him on nebs around the clock and p.r.n. IV Solu-Medrol 40 mg t.i.d., question of PE, but the patient's creatinine is 1.5, will follow lower extremity Doppler and echo. If not improving or concerns will get v/q scan or CTA chest. Follow serial cardiac enzymes. Closely monitor in tele floor. Continue the BiPAP for now. We will follow the ABG level. 2. Acute CHF acute copd ex management as above 3. Obstructive sleep apnea. The patient refuses to use CPAP in the nighttime. Needs counseling. 4. History of peripheral vascular disease, status post right carotid endarterectomy. Continue his Plavix. 5. Hypertension. Continue losartan, amlodipine and Coreg with holding parameters. 6. Hyperglycemia. Sugars are running high, no diagnosis of diabetes. We will place on diabetic diet. We will follow HbA1c levels. . Monitor the sugar while the patient is on IV steroids.If continuos to be elevated will place on insulin. 7. Gastroesophageal reflux disease. Continue Prilosec. Currently, complaining of epigastric tenderness. We will place him on IV Pepcid. 8. Elevated lactic acid, most likely secondary to respiratory distress. We will follow the repeat lactic acid levels. 9. Acute kidney injury on chronic kidney disease stage III, baseline creatinine 1.2-1.3, presents with creatinine of 1.5, probably from above. Also, received Lasix in the ER. We will follow the labs in a.m. 10. Deep venous thrombosis prophylaxis. Place on heparin subQ. 11. Disposition: Admit to tele floor. PT and OT prior to discharge. Social Service to help with discharge planning. Expect to discharge home and follow with family doctor. Level 1 full code. Addendum: ABG were fine. Patient not tolerating Bipap. Changed to venti mask MTDD
[2019-03-10 06:08] LABS: Estimated Average Glucose 114 mg/dl; Hemoglobin A1C 5.6 % (4.5-5.6)
--- NOTE | 2019-03-10 06:25 | Ultrasound Report ---
BILATERAL LOWER EXTREMITY VENOUS DOPPLER HISTORY: Acute pain and swelling of the bilateral lower extremities dvt? COMPARISON STUDY: None. FINDINGS: There is normal compressibility, flow, and augmentation within the bilateral lower extremit y deep venous systems. IMPRESSION: No DVT within the right or left lower extremity. Electronically signed by: Wolf Terrazas M.D. 03/10/2019 6:24 AM
--- NOTE | 2019-03-10 06:53 | XRay Report ---
XR chest 1V portable CLINICAL HISTORY: Shortness of breath COMPARISON STUDY: 03/17/2014 FINDINGS: The cardiac and mediastinal contours remain stable. There is no failure. There is no lobar consolidation. There is mild basilar interstitial thickening. There are no significant pleural effusi ons.[ IMPRESSION: Mild basilar interstitial thickening/edema. Correlate clinically for evidence of mild con gestive failure/fluid overload. Electronically signed by: Ken Lynch M.D. 03/10/2019 6:52 AM
[2019-03-10] MEDS: ALBUT/IPRATROP 3MG/0.5MG NEB 3 ML VIAL NEB SCH ×4 (06:54→19:10)
[2019-03-10] MEDS: carvediloL 12.5 MG TAB PO SCH ×2 (07:36→21:23)
[2019-03-10] MEDS: AMLODIPINE BESYLATE 5 MG TAB PO SCH (07:37)
[2019-03-10] MEDS: CLOPIDOGREL BISULFATE 75 MG TAB PO SCH (07:37)
[2019-03-10] MEDS: LOSARTAN POTASSIUM 50 MG TAB PO SCH (07:37)
[2019-03-10] MEDS: PANTOprazole 40 MG TAB PO SCH (07:38)
[2019-03-10] MEDS ORDERED: FUROSEMIDE 40 MG/4 ML VIAL IV ONE (07:48)
[2019-03-10] MEDS ORDERED: FUROSEMIDE 20 MG in SYRINGE 0 ML IV SCH (09:00)
[2019-03-10] MEDS ORDERED: FUROSEMIDE 20 MG TAB PO SCH (09:00)
--- NOTE | 2019-03-10 09:46 | Cardiology Consultation ---
Date of Consultation March 10, 2019 Assessment & Plan (1) Respiratory failure: Patient admitted with acute respiratory failure, respiratory arrest suspicious for multifactorial etiology. Underlying lung disease as well as underlying ischemic heart disease suspected possibly severe Plan: We will consult pulmonology for assistance in management of acute respiratory issues given persistent wheezing and shortness of breath after appropriate treatments Patient will require diagnostic cardiac catheterization this admission with multiple underlying cardiac risk factors including known vascular disease, hypertension, age and gender Troponins are elevated and echocardiogram suggest segmental wall motion abnormalities Hypertension and untreated sleep apnea possibly contributing We will add topical nitrates to regimen hypertension and antianginal effect Hold furosemide after this morning's dose Continue carvedilol and clopidogrel and losartan Anticipate diagnostic cardiac catheterization if pulmonary status stable in a.m. (2) Bronchospasm: (3) Non-ST elevated myocardial infarction: As above. Will require diagnostic cardiac catheterization as part of evaluation this admission (4) Hypertension: History of Present Illness Reason for Consultation: Respiratory arrest, rule out ischemic heart disease Requesting Physician: Dr. Goodson Attending Physician: Hamzah Espinoza MD History of Present Illness Patient is a 78-year-old male who per review of records and discussion with patient's history is notable for 1. Long-standing hypertensive with hypertensive heart disease 2. Chronic obstructive lung disease with possible sleep apnea 3. Atherosclerotic carotid disease status post right carotid enterectomy 2010 Patient has no prior history of cardiac disease and per reports underwent remote diagnostic cardiac catheterization without obstruction in 2005. Patient presents this admission noting having had several issues for months including diarrhea for 1 to 2 months followed by worsening pulmonary issues over the last 1 weeks time with increased cough and medium mucus production. Last evening symptoms worsened to the point of respiratory difficulty attempted to walk outside for air and collapsed. Paramedics were summoned and he was resuscitated with bag mask and CPAP. No cardiac arrhythmias observed or defibrillation administered. On presentation patient wheezing and hypoxic. Concerns raised regarding congestive heart failure with single dose of IV furosemide administered with resultant 1400 cc diuresis. Patient denies chest pains, tachypalpitations, fevers chills, prior syncope. D oes carry a history of past TIA stroke prior to carotid enterectomy in 2010. Denies history of structural heart disease rheumatic fever scarlet fever renal or hepatic disease though stage III chronic kidney disease noted on past records. Appetite is been stable he has manifested a gradual weight loss over the several years no acute weight gain edema or overt orthopnea. Patient has been significantly more dyspneic over the past 2 weeks worse with some positional changes. This morning after interventions as above as well as IV methylprednisolone and IV ceftriaxone has been weaned to nasal cannula oxygen but still wheezing and dyspneic with minimal activity Chest x-ray reveals minimal basilar thickening with normal BNP Troponins are elevated, brief review of initial echocardiogram suggest segmental abnormalities inferior wall and septum although with overall preserved ejection fraction He denies recent melena hematochezia dysuria hematuria notes no rash or skin lesion. Family confirms dyspnea with minimal exertion, no overt claudication Allergies Allergy/AdvReac Type Severity Reaction Status Date / Time No Known Allergies Allergy Unverified 03/10/19 01:03 Home Medications Home Medications Medication Instructions Recorded Confirmed Type albuterol sulfate 2 puff INHALATION Q4H PRN 03/10/19 03/10/19 History amlodipine 10 mg PO DAILY 03/10/19 03/10/19 History carvedilol 12.5 mg PO BID 03/10/19 03/10/19 History clopidogrel [Plavix] 75 mg PO DAILY 03/10/19 03/10/19 History furosemide [Lasix] 20 mg PO DAILY 03/10/19 03/10/19 History losartan 100 mg PO DAILY 03/10/19 03/10/19 History omeprazole 20 mg PO DAILY 03/10/19 03/10/19 History Patient History Social History Communication Ability: Effective Beliefs That Will Affect Care: None Current Living Situation: Spouse Other Information That Helps Us Care for You: No Feels Safe at Home: Yes Safety Concerns: Feels Safe At This Time Smoking Status: Never smoker Hx Alcohol Use: No Hx Substance Use: No Review of Systems Review of Systems: All systems reviewed & are unremarkable except as noted in HPI & below Physical Exam Constitutional: + obese Eyes: PERRL, conjunctivae normal, anicteric sclerae ENMT: external ear and nose normal, oropharynx normal Neck: trachea midline, no thyromegaly Well-healed right carotid enterectomy scar Respiratory: + labored breathing and + audible wheezes (Right greater than left) Cardiovascular: Rate/Rhythm: regular rate and regular rhythm Heart Sounds: normal S1 and normal S2; no gallop and no murmur Palpation: normal PMI Vessels: normal carotid upstroke, femoral pulses present, dorsalis pedis pulses present and radial pulses present; no JVD, no carotid bruit and no femoral bruit Extremities: no edema Gastrointestinal (Abdomen): normal bowel sounds, soft, nontender, no hepatosplenomegaly Musculoskeletal: no cyanosis or clubbing, extremities motor strength 5/5 Skin: no rashes, warm and dry Neurologic: PERRL, EOMI, accommodation nl, no face palsy, no dysarthria Psychiatric: A+Ox3, euthymic affect Results & Data Vital Signs (Past 12 Hours) Vital Signs Temp Pulse Pulse Pulse Resp BP BP 03/10/19 07:30 36.7 C 65 24 146/82 H 03/10/19 06:56 69 18 03/10/19 03:40 36.5 C 65 28 H 167/89 H 03/10/19 03:36 68 22 03/10/19 03:26 24 03/10/19 03:01 64 23 163/94 H 03/10/19 03:00 63 21 03/10/19 02:50 64 17 03/10/19 02:40 62 22 03/10/19 02:31 55 L 17 143/86 H 03/10/19 02:30 55 L 24 03/10/19 02:20 56 L 22 03/10/19 02:10 56 L 22 03/10/19 02:01 56 L 23 129/65 03/10/19 02:00 55 L 22 03/10/19 01:50 58 L 25 H 03/10/19 01:40 61 26 H 03/10/19 01:37 36.5 C 03/10/19 01:31 67 21 136/84 03/10/19 01:30 69 31 H 03/10/19 01:20 65 25 H 03/10/19 01:10 67 24 03/10/19 01:00 70 28 H 03/10/19 00:55 74 38 H 03/10/19 00:50 73 24 03/10/19 00:47 35 C L 83 36 H 158/92 H Pulse Ox 03/10/19 07:30 97 03/10/19 06:56 95 03/10/19 03:40 100 03/10/19 03:36 98 03/10/19 03:26 95 03/10/19 03:01 100 03/10/19 03:00 100 03/10/19 02:50 100 03/10/19 02:40 100 03/10/19 02:31 100 03/10/19 02:30 100 03/10/19 02:20 100 03/10/19 02:10 99 03/10/19 02:01 98 03/10/19 02:00 98 03/10/19 01:50 97 03/10/19 01:40 96 03/10/19 01:37 03/10/19 01:31 94 03/10/19 01:30 95 03/10/19 01:20 95 03/10/19 01:10 97 03/10/19 01:00 98 03/10/19 00:55 98 03/10/19 00:50 98 03/10/19 00:47 98 Laboratory Results Laboratory Results - last 24 hr 03/10/19 03/10/19 03/10/19 01:19 01:19 01:19 WBC 13.03 H RBC 4.86 Hgb 15.6 Hct 45.3 MCV 93.2 MCH 32.1 MCHC 34.4 RDW Std Deviation 46.5 H RDW Coeff of Tay 13.6 Plt Count 195 MPV 11.7 H Immature Gran % (Auto) 0.5 Neut % (Auto) 82.1 Lymph % (Auto) 9.4 Wilcox % (Auto) 4.8 Eos % (Auto) 2.7 Baso % (Auto) 0.5 Immature Gran # (Auto) 0.06 H Neut # (Auto) 10.70 H Lymph # (Auto) 1.23 Wilcox # (Auto) 0.63 H Eos # (Auto) 0.35 Baso # (Auto) 0.06 PT 10.4 INR 1.0 APTT 20.7 L PTT Ratio 0.8 ABG pH ABG pCO2 ABG pO2 ABG HCO3 ABG O2 Saturation ABG Base Excess Jacoby Test Barometric Pressure Oxygen Given Sodium 141 Potassium 4.4 Chloride 105 Carbon Dioxide 29 Anion Gap 7.0 BUN 22 H Creatinine 1.52 H Est Cr Clr Drug Dosing 41.4 Est GFR ( Amer) 50.9 Est GFR (Non-Af Amer) 43.9 BUN/Creatinine Ratio 14.6 Glucose 223 H Estimat Average Glucose Hemoglobin A1c Lactate Calcium 8.4 L Magnesium 2.4 Total Bilirubin 0.4 Direct Bilirubin 0.1 AST 32 ALT 35 Alkaline Phosphatase 139 H Troponin I < 0.015 NT-Pro-B Natriuret Pep 140 Total Protein 7.1 Albumin 3.9 Lipase 117 Urine Color Urine Appearance Urine pH Ur Specific [place] Urine Protein Urine Glucose (UA) Urine Ketones Urine Blood Urine Nitrite Urine Bilirubin Urine Urobilinogen Ur Leukocyte Esterase Urine WBC (Auto) Urine RBC (Auto) U Hyaline Cast (Auto) U Epithel Cells (Auto) Urine Bacteria (Auto) Influenza Type A Ag Influenza Type B Ag 03/10/19 03/10/19 03/10/19 01:19 01:52 02:45 WBC RBC Hgb Hct MCV MCH MCHC RDW Std Deviation RDW Coeff of Tay Plt Count MPV Immature Gran % (Auto) Neut % (Auto) Lymph % (Auto) Wilcox % (Auto) Eos % (Auto) Baso % (Auto) Immature Gran # (Auto) Neut # (Auto) Lymph # (Auto) Wilcox # (Auto) Eos # (Auto) Baso # (Auto) PT INR APTT PTT Ratio ABG pH ABG pCO2 ABG pO2 ABG HCO3 ABG O2 Saturation ABG Base Excess Jacoby Test Barometric Pressure Oxygen Given Sodium Potassium Chloride Carbon Dioxide Anion Gap BUN Creatinine Est Cr Clr Drug Dosing Est GFR ( Amer) Est GFR (Non-Af Amer) BUN/Creatinine Ratio Glucose Estimat Average Glucose Hemoglobin A1c Lactate 2.6 H* Calcium Magnesium Total Bilirubin Direct Bilirubin AST ALT Alkaline Phosphatase Troponin I NT-Pro-B Natriuret Pep Total Protein Albumin Lipase Urine Color Yellow Urine Appearance Clear Urine pH 6.5 Ur Specific [place] 1.022 Urine Protein 2+ H Urine Glucose (UA) 3+ H Urine Ketones Negative Urine Blood Negative Urine Nitrite Negative Urine Bilirubin Negative Urine Urobilinogen Negative Ur Leukocyte Esterase Negative Urine WBC (Auto) 1-5 Urine RBC (Auto) 0-4 U Hyaline Cast (Auto) 1-5 U Epithel Cells (Auto) 10-20 H Urine Bacteria (Auto) Negative Influenza Type A Ag Neg for Influ A Influenza Type B Ag Neg for Influ B 03/10/19 03/10/19 03/10/19 04:17 04:17 04:17 WBC 11.23 H RBC 5.10 Hgb 16.2 Hct 46.8 MCV 91.8 MCH 31.8 MCHC 34.6 RDW Std Deviation 45.7 RDW Coeff of Tay 13.5 Plt Count 205 MPV 11.2 H Immature Gran % (Auto) 0.4 Neut % (Auto) 84.8 Lymph % (Auto) 7.3 Wilcox % (Auto) 6.6 Eos % (Auto) 0.7 Baso % (Auto) 0.2 Immature Gran # (Auto) 0.04 H Neut # (Auto) 9.53 H Lymph # (Auto) 0.82 L [place] # (Auto) 0.74 H Eos # (Auto) 0.08 Baso # (Auto) 0.02 PT INR APTT PTT Ratio ABG pH 7.42 ABG pCO2 45 ABG pO2 87 ABG HCO3 29 H ABG O2 Saturation 96.8 H ABG Base Excess 3.3 H Jacoby Test POS Barometric Pressure 735.2 Oxygen Given 40% Sodium 141 Potassium 4.1 Chloride 107 Carbon Dioxide 27 Anion Gap 7.0 BUN 22 H Creatinine 1.33 Est Cr Clr Drug Dosing 44.3 Est GFR ( Amer) 59.8 Est GFR (Non-Af Amer) 51.6 BUN/Creatinine Ratio 16.7 Glucose 117 H Estimat Average Glucose Hemoglobin A1c Lactate Calcium 9.0 Magnesium 2.6 H Total Bilirubin Direct Bilirubin AST ALT Alkaline Phosphatase Troponin I NT-Pro-B Natriuret Pep Total Protein Albumin Lipase Urine Color Urine Appearance Urine pH Ur Specific [place] Urine Protein Urine Glucose (UA) Urine Ketones Urine Blood Urine Nitrite Urine Bilirubin Urine Urobilinogen Ur Leukocyte Esterase Urine WBC (Auto) Urine RBC (Auto) U Hyaline Cast (Auto) U Epithel Cells (Auto) Urine Bacteria (Auto) Influenza Type A Ag Influenza Type B Ag 03/10/19 03/10/19 03/10/19 04:17 04:17 08:29 WBC RBC Hgb Hct MCV MCH MCHC RDW Std Deviation RDW Coeff of Tay Plt Count MPV Immature Gran % (Auto) Neut % (Auto) Lymph % (Auto) [place] % (Auto) Eos % (Auto) Baso % (Auto) Immature Gran # (Auto) Neut # (Auto) Lymph # (Auto) [place] # (Auto) Eos # (Auto) Baso # (Auto) PT INR APTT PTT Ratio ABG pH ABG pCO2 ABG pO2 ABG HCO3 ABG O2 Saturation ABG Base Excess Jacoby Test Barometric Pressure Oxygen Given Sodium Potassium Chloride Carbon Dioxide Anion Gap BUN Creatinine Est Cr Clr Drug Dosing Est GFR ( Amer) Est GFR (Non-Af Amer) BUN/Creatinine Ratio Glucose Estimat Average Glucose 114 Hemoglobin A1c 5.6 Lactate 1.6 Calcium Magnesium Total Bilirubin Direct Bilirubin AST ALT Alkaline Phosphatase Troponin I 0.172 H* NT-Pro-B Natriuret Pep Total Protein Albumin Lipase Urine Color Urine Appearance Urine pH Ur Specific [place] Urine Protein Urine Glucose (UA) Urine Ketones Urine Blood Urine Nitrite Urine Bilirubin Urine Urobilinogen Ur Leukocyte Esterase Urine WBC (Auto) Urine RBC (Auto) U Hyaline Cast (Auto) U Epithel Cells (Auto) Urine Bacteria (Auto) Influenza Type A Ag Influenza Type B Ag Diagnostic Findings 10-MAR-2019 00:56:48 [facility]-EDSTAT ROUTINE RETRIEVAL Sinus rhythm with occasional Premature ventricular complexes Septal infarct , age undetermined Abnormal ECG When compared with ECG of 17-MAR-2014 08:54, Premature ventricular complexes are now Present Septal infarct is now Present Nonspecific T wave abnormality now evident in Lateral leads (1) Respiratory failure Chronicity: acute Respiratory failure complication: hypoxia Qualified Code(s): J96.01 - Acute respiratory failure with hypoxia
[2019-03-10] MEDS: NITROGLYCERIN 2% OINTMENT 30GM TUBE EXT SCH ×3 (13:25→21:22)
--- NOTE | 2019-03-10 13:30 | Pulmonary Consultation ---
Date of Consultation March 10, 2019 Assessment & Plan (1) Respiratory failure: Patient with respiratory failure at home resulting in respiratory resuscitation by EMS squad Patient currently on supplemental oxygen via nasal cannula Oxygenating well but very bronchospastic Patient with questionable history of aspiration Patient with history of COPD but no evidence of pulmonary function testing Will continue with DuoNeb treatments as well as methylprednisolone 40 mg 3 times daily We will evaluate again in the morning Patient will need outpatient pulmonary follow-up for PFTs Continue to monitor on telemetry Chronicity: acute Respiratory failure complication: hypoxia Qu alified Code(s): J96.01 - Acute respiratory failure with hypoxia (2) Non-ST elevated myocardial infarction: Suspect ischemic event is from respiratory failure Elevated troponins Patient with hypertensive history but no CAD If respiratory status improved plan on cardiac catheterization tomorrow In the meantime continue with pulmonary toilet and bronchodilators Cardiology consulted Appreciate Dr. Rocha's input (3) Hypertension: Amlodipine and carvedilol at home Patient started on losartan, furosemide, and nitroglycerin topical cream today Continue to monitor on telemetry Anticipate cardiac catheterization tomorrow (4) Sleep apnea: Patient denies polysomnography exam in the past. However, it appears as though he could not tolerate his CPAP mask in 2011 Continue to monitor oxygenation Outpatient follow-up with pulmonary (5) DVT prophylaxis: Heparin 5000 units subcu every 8 hours Patient continues on clopidogrel for carotid stenosis in the past Thank you for including us in the care of this patient. Please refer to Dr. Pierce's addendum for further recommendations We will continue to follow along with you Supervising Physician Co-Signing Physician Notes Patient seen and examined with Sawyer Cardona PA-C. I agree with his assessment and plan aside for any additions/exceptions noted: Patient likely has some degree of reactive airway disease and appears to be bronchospastic at present. Continue IV Solu-Medrol today and switch him to 40 mg of p.o. prednisone for a course of 7 days total of steroids. He also has some rhinorrhea and would recommend starting him on Astelin nasal sprays along with Flonase. He does appear to have some trouble with speech and swallowing after he had a stroke about 5 years ago. Recommend obtaining a speech consult. He may also need a GI consultation as an outpatient to evaluate for severe reflux. ENT consultation as an outpatient may be warranted as well to look for vocal cord dysfunction. His prior pulmonary function tests do not indicate any evidence of airflow obstruction. He does not have any significant smoking history. It does not appear that he has COPD. He needs to be followed up in the pulmonary clinic after discharge in 1 to 2 weeks with a full pulmonary function test at that time. History of Present Illness Attending Physician: Hamzah Espinoza MD History of Present Illness Attending: Dr. Pierce This is a 78-year-old male who presented to the emergency department via EMS this morning for respiratory arrest and syncope. Patient has a past medical history of peripheral arterial disease and is status post right carotid endarterectomy, hypertension, GERD, question of COPD and VALARIE with no prior studies. Patient was resuscitated with bag valve mask but did not require cardiac compressions or defibrillation. He woke this morning with shortness of breath. His immediately called 911. They went outside to await the arrival of the ambulance. On arrival, the ambulance crew place the patient in a letter and he went into respiratory arrest. They were able to resuscitate him and brought him to the emergency department for evaluation treatment. Patient found to have elevated troponins. Echocardiogram showed preserved left ventricular ejection fraction and no significant valvular disease. There was so me notice of wall motion irregularity. Cardiology has been consulted and is planning on taking the patient to cardiac catheterization lab. On examination, Dr. Rocha noted severe bronchospasm and asked us to see the patient from a pulmonary standpoint. On my examination, the patient was extremely bronchospastic in all lung zones. The patient did have a nebulizer treatment with albuterol and ipratropium and had improvement to his symptoms. Patient was given loading doses of methylprednisolone in the emergency department and is currently on maintenance therapy at 40 mg IV every 8 hours. Patient has no chest pain or tightness at this time. He denies any productive cough. He has no recent fever or chills. And no history of prior pulmonary disease. The patient's does report that the patient coughs almost every time he eats or drinks. He has not been officially diagnosed with aspiration. He also reported early onset heartburn consistent with GERD. He is on omeprazole 20 mg p.o. daily at home. The patient has hoarseness on examination which he states is new for him. This is not been noticed by the patient's or daughter. Patient does report he had some mucus regurgitation this morning and aspirated on that. He denies any significant vomiting but did have nausea this morning. The patient has no history of DVT or pulmonary emboli. He does have peripheral vascular disease and underwent right carotid endarterectomy in 2010. Record notes the patient has chronic obstructive lung disease with possible sleep apnea. However, patient denies any history of COPD. He further states that he has never seen a imaging nurse or had pulmonary function testing. Patient has no other acute complaints at this time. Allergies Allergy/AdvReac Type Severity Reaction Status Date / Time No Known Allergies Allergy Unverified 03/10/19 01:03 Home Medications Home Medications Medication Instructions Recorded Confirmed Type albuterol sulfate 2 puff INHALATION Q4H PRN 03/10/19 03/10/19 History amlodipine 10 mg PO DAILY 03/10/19 03/10/19 History carvedilol 12.5 mg PO BID 03/10/19 03/10/19 History clopidogrel [Plavix] 75 mg PO DAILY 03/10/19 03/10/19 History furosemide [Lasix] 20 mg PO DAILY 03/10/19 03/10/19 History losartan 100 mg PO DAILY 03/10/19 03/10/19 History omeprazole 20 mg PO DAILY 03/10/19 03/10/19 History Patient History Medical History COPD (chronic obstructive pulmonary disease) Carotid artery stenosis GERD (gastroesophageal reflux disease) Hypertension VALARIE (obstructive sleep apnea) Surgical History Traumatic enucleation of right eye Family History Other Medical history non-contributory Social History Preferred Language: Maori Communication Ability: Effective Beliefs That Will Affect Care: None marital status: marital status details: 51 years Current Living Situation: Spouse current occupational status: retired Other Information That Helps Us Care for You: No Feels Safe at Home: Yes Safety Concerns: Feels Safe At This Time Smoking Status: Former smoker Years Smoked: 4 ; Do You Dip or Chew Tobacco: No (Used smokeless tobacco for 11 years but quit in his early 30s) ; Second Hand Exposure: Yes (As a child. Father when patient was 15 years old) ; Tobacco Cessation Education Requested by Patient: No Hx Alcohol Use: No Hx Substance Use: No during the past year weight has: remained stable Review of Systems Review of Systems: All systems reviewed & are unremarkable except as noted in HPI & below Physical Exam Physical Exam: GENERAL : No acute distress. EYES: No icterus,. Prosthetic right eye secure. Left pupil reactive to light NOSE: No evidence of epistaxis MOUTH: No lesions or candidiasis NECK: Supple LUNGS: Diffuse bronchospasm in all lung romero. Most clearly heard on expiration phase. Good breath sounds at bases. Good inspirational effort. HEART: Regular, rate controlled in the 90s. No appreciate for murmurs gallops or rubs ABDOMEN: Soft, NT, ND, BS Present EXTREMITIES: No LE edema, pedal pulses intact NEURO: A&OX3. No vision right eye secondary to prosthesis Results & Data Vital Signs (Past 12 Hours) Vital Signs Temp Pulse Pulse Pulse Resp BP BP 03/10/19 11:43 67 18 03/10/19 11:07 36.3 C L 61 20 137/70 03/10/19 07:30 36.7 C 65 24 146/82 H 03/10/19 06:56 69 18 03/10/19 03:40 36.5 C 65 28 H 167/89 H 03/10/19 03:36 68 22 03/10/19 03:26 24 03/10/19 03:01 64 23 163/94 H 03/10/19 03:00 63 21 03/10/19 02:50 64 17 03/10/19 02:40 62 22 03/10/19 02:31 55 L 17 143/86 H 03/10/19 02:30 55 L 24 03/10/19 02:20 56 L 22 03/10/19 02:10 56 L 22 03/10/19 02:01 56 L 23 129/65 03/10/19 02:00 55 L 22 03/10/19 01:50 58 L 25 H 03/10/19 01:40 61 26 H 03/10/19 01:37 36.5 C 03/10/19 01:31 67 21 136/84 03/10/19 01:30 69 31 H Pulse Ox 03/10/19 11:43 93 03/10/19 11:07 95 03/10/19 07:30 97 03/10/19 06:56 95 03/10/19 03:40 100 03/10/19 03:36 98 03/10/19 03:26 95 03/10/19 03:01 100 03/10/19 03:00 100 03/10/19 02:50 100 03/10/19 02:40 100 03/10/19 02:31 100 03/10/19 02:30 100 03/10/19 02:20 100 03/10/19 02:10 99 03/10/19 02:01 98 03/10/19 02:00 98 03/10/19 01:50 97 03/10/19 01:40 96 03/10/19 01:37 03/10/19 01:31 94 03/10/19 01:30 95 Laboratory Results 03/10/19 04:17 03/10/19 04:17 Diagnostic Findings XR chest 1V portable CLINICAL HISTORY: Shortness of breath COMPARISON STUDY: 03/17/2014 FINDINGS: The cardiac and mediastinal contours remain stable. There is no failure. There is no lobar consolidation. There is mild basilar interstitial thickening. There are no significant pleural effusions.[ IMPRESSION: Mild basilar interstitial thickening/edema. Correlate clinically for evidence of mild congestive failure/fluid overload. Electronically signed by: Ken Lynch M.D. 03/10/2019 6:52 AM PG Care Time/CCT Total # of Minutes Spent Total Time Spent with Patient: Total time spent is greater than 50% in coordination of care (as documented) at patient's floor/unit and/or counseling patient:45
[2019-03-10 13:42] LABS: iSTAT Arterial Blood Gas pCO2 60 mmHg (35-46); iSTAT Arterial Blood Gas pH 7.29 (7.35-7.45)
[2019-03-10 13:43] LABS: iSTAT Arterial Blood Gas HCO3 29 meg/L (19-24); iSTAT Arterial Blood Gas pO2 420 mmHg (80-95); iSTAT Carbon Dioxide 30 mEq/l (24-31)
[2019-03-10 13:44] LABS: iSTAT Sample Type Arterial
--- NOTE | 2019-03-10 19:52 | Communication Note ---
Date of Service: March 10, 2019 Pt was seen and examined Lying in bed with no distress Pt said that his breathing is slightly improves He does not want to use the CPAP/BIPAP at night He said that he cannot tolerated the machine because he will not be able to fall asleep Denies any chest pain, palpitation, dizziness and SOB Exam General- No acute distress Head- atraumatic Eyes- PERRL, EOMI, ENT- oropharynx clear Neck- supple, no JVD Lungs- +wheezing Heart- regular rhythm; no murmur Abdomen- normal bowel sounds, soft, nontender Extremities- no calf tenderness Neuro- alert, oriented x 3; PERRL, EOMI; no facial palsy; no dysarthria Skin- warm & dry Acute respiratory failure CXR showed mild basilar interstitial thickening/edema No pulmonary function test when reviewed outpatient chart Continue solumedrol IV q8h Continue neb treatment and oxygen supplement Continue abx with Rocephin and doxy for now Pulm on board Will need outpatient pulmonary follow-up for PFTs Will add flonase and nasal saline due to rhinorrhea Speech on board Elevated troponin Non-ST elevated myocardial infarction Possible related to demand ischemia due to respiratory arrest Troponin on admission normal, then increased to 0.172, then dropped to 0.143 ECHO showed mid anteroseptum is akinetic. Base segment of inferior and base mid inferoseptum are hypokinetic. EF 55-60% Cardiology on board Anticipate diagnostic cardiac catheterization if pulmonary status stable in a.m. Continue carvedilol and clopidogrel and losartan Continue monitor in tele HTN BP fluctuates Continue Losartan/amlodipine and carvedilol Continue monitor BP DVT px on heparin subq
[2019-03-10] MEDS ORDERED: SODIUM CHLORIDE 0.65% NA SOLN 45 ML (OCEAN) PRN (20:06)
[2019-03-10] MEDS: FLUTICASONE PROPIONATE NA SPR 16 GM BTL SCH (21:22)
[2019-03-11] MEDS: SODIUM CHLORIDE 0.9% 1000ML 1,000 ML IV SCH ×3 (00:53→17:58)
[2019-03-11] MEDS: DOXYCYCLINE HYCLATE 100 MG in DEXTROSE 5% 100 ML IV SCH ×2 (04:56→17:57)
[2019-03-11] MEDS: NITROGLYCERIN 2% OINTMENT 30GM TUBE EXT SCH (04:57)
[2019-03-11] MEDS: HEPARIN SOD 5,000 UNIT/0.5 ML VIAL SQ SCH ×3 (04:59→20:59)
[2019-03-11 05:32] LABS: Basophils # (auto) 0.01 K/uL (0-0.2); Basophils % (auto) 0.1 %; Eosinophils # (auto) 0.01 K/uL (0-0.5); Eosinophils % (auto) 0.1 %; Hematocrit (blood only) 42.8 % (42-52); Hemoglobin 14.9 g/dL (14.0-18.0); Immature Granulocytes # (auto) 0.05 K/uL (0.00-0.02); Immature Granulocytes % (auto) 0.3 %; Lymphocytes # (auto) 0.96 K/uL (1.2-3.4); Lymphocytes % (auto) 5.9 %; Mean Corpuscular Hemoglobin 32.1 pg (25-34); Mean Corpuscular Hgb Conc 34.8 g/dL (32-36); Mean Corpuscular Volume 92.2 fL (80-100); Mean Platelet Volume 11.4 fL (7.4-10.4); Monocytes # (auto) 1.26 K/uL (0.11-0.59); Monocytes % (auto) 7.7 %; Neutrophils # (auto) 13.97 K/uL (1.4-6.5); Neutrophils % (auto) 85.9 %; Platelet Count 188 K/uL (130-400); RDW Coefficient of Variation 13.7 % (11.5-14.5); RDW Standard Deviation 46.2 fL (36.4-46.3); Red Blood Count 4.64 M/uL (4.7-6.1); White Blood Count 16.26 K/uL (4.8-10.8)
[2019-03-11 06:09] LABS: BUN Creatinine Ratio 18.8 (10-20); Calcium 8.8 mg/dl (8.5-10.1); Creatinine Clr Calc Pharmacy 36.4 ml/min; Est GFR (African American) 46.7; Est GFR (Non-African American) 40.3; Magnesium 2.4 mg/dl (1.8-2.4); Potassium 3.9 mmol/L (3.5-5.1)
[2019-03-11] MEDS: ALBUT/IPRATROP 3MG/0.5MG NEB 3 ML VIAL NEB SCH ×4 (07:00→19:01)
[2019-03-11] MEDS ORDERED: NiCARDipine HCL INJ 2.5 MG/ML 10 ML AMP ONE (07:56)
[2019-03-11] MEDS ORDERED: HEPARIN (PORCINE) 1000 UNIT/ML 10 ML (CATH LAB USE ONLY) ONE (07:56)
[2019-03-11] MEDS ORDERED: NITROGLYCERIN/D5W 100MCG/ML 20ML SYR ONE (07:57)
[2019-03-11] MEDS ORDERED: MIDAZOLAM HCL 1 MG/ML 2ML VIAL ONE (07:57)
[2019-03-11] MEDS ORDERED: fentaNYL citrate 100 MCG/2 ML VIAL ONE (07:57)
--- NOTE | 2019-03-11 08:01 | Pre Anesthesia Assessment ---
Date of Service March 11, 2019 Pre Sedation Assessment Vital Signs Temp Pulse Pulse Pulse Pulse Resp BP 03/11/19 07:01 72 18 03/11/19 06:50 36.7 C 69 20 03/11/19 03:02 36.9 C 80 20 03/10/19 23:22 69 16 03/10/19 23:21 36.8 C 78 20 03/10/19 22:28 74 22 03/10/19 19:28 36.9 C 81 19 03/10/19 19:10 84 22 03/10/19 16:29 65 03/10/19 15:34 36.6 C 70 18 03/10/19 14:49 67 20 03/10/19 11:43 67 18 03/10/19 11:07 36.3 C L 61 20 137/70 BP Pulse Ox 03/11/19 07:01 92 03/11/19 06:50 155/75 H 93 03/11/19 03:02 160/81 H 94 03/10/19 23:22 97 03/10/19 23:21 159/83 H 98 03/10/19 22:28 96 03/10/19 19:28 149/71 H 92 03/10/19 19:10 93 03/10/19 16:29 03/10/19 15:34 129/64 92 03/10/19 14:49 94 03/10/19 11:43 93 03/10/19 11:07 95 Cardiovascular + regular rhythm Respiratory + wheezes Pre-Sedation Airway Assessment Smoking Status: Former smoker Hx Sleep Apnea: No Short, Thick Neck: Yes Thyromental Distance: > or= 3.5 Finger Breadths Oral Cavity: + Dentures Mallampati Class: II ASA: ASA3 NPO Status Date of Last Intake of Fluids: 03/10/19 Time of Last Intake of Fluids: 18:00 Date of Last Intake of Solid Food: 03/10/19 Time of Last Intake of Solid Foods: 18:00 Procedure Planning Contraindications for Sedation: none Current Medications Reviewed: Yes Notes The planned sedation has been discussed with the patient. Informed Consent was obtained. I have identified the patient, determined the appropriateness of sedation and have assessed the patient immediately prior to the procedure. All medicine(s) and interventions are by my order.
--- NOTE | 2019-03-11 08:43 | Cardiac Catheterization ---
Cardiac Cath Procedure: Brief Procedure Date March 11, 2019 Pre-Procedure Diagnosis Pre-Procedure Diagnosis: Non STEMI AUC Score AUC Score: 7 Post-Procedure Diagnosis Post-Procedure Diagnosis: Mild CAD Procedure(s) Performed Procedure(s) Performed: Coronary Angiography and Left Heart Cath End Lathe Operator Armando Rocha MD Estimated Blood Loss Estimated Blood Loss: <15cc Medication(s) Medication(s): Fentanyl (12.5 mcg IV), Heparin (5000 units IV), Lidocaine 1% (Local infiltration access site), Nicardipine (250 mcg intra-arterial after arterial sheath insertion) and Versed (1 mg IV) Preliminary Findings Right dominant coronary anatomy Mild coronary atherosclerosis with focal 40% narrowing left circumflex only Left main: Short with mild calcification and no obstruction Left anterior descending: Type III in distribution with 2 small diagonal branches in its midportion and 2 large septal branches. Within the left anterior descending there is a long 30% narrowing in its proximal portion but no other obstruction Ramus intermedius: Large bifurcating vessel with mild irregularities Left circumflex: Large caliber but nondominant consisting of a single large obtuse marginal with 30% ostial narrowing, 40% mid vessel stenosis Right coronary artery: Moderately large vessel dominant distribution. Gives rise to a very large right ventricular branch shortly after its origin, a small posterior descending artery, and a long terminal posterior ventricular branch. There are mild luminal irregularities only LV angiography not performed Left ventricular end-diastolic pressure 18-20 Recommendations Recommendations: Medical Therapy and/or Counseling Specimens Specimens: None Fluids (cc crystalloids) Fluids (cc crystalloids): 20 Anesthesia Start 8:06, stop 8:31 Procedural Complication(s) None Disposition Recovery Room\PACU
[2019-03-11] MEDS ORDERED: ACETAMINOPHEN 325 MG TAB PO PRN (08:49)
--- NOTE | 2019-03-11 08:56 | Cardiac Catheterization ---
Cardiac Cath Procedure Full Procedure Date March 11, 2019 Pre-Procedure Diagnosis Pre-Procedure Diagnosis: Non STEMI AUC Score AUC Score: 8 Post-Procedure Diagnosis Post-Procedure Diagnosis: Mild CAD Procedure(s) Performed Procedure(s) Performed: Coronary Angiography and Left Heart Cath Care Transport Nurse Armando Rocha MD [facility] Classifier Tender(s) Suzi Patel Estimated Blood Loss Estimated Blood Loss: <15cc Medication(s) Medication(s): Fentanyl (12.5 mcg IV), Heparin (5000 units IV), Lidocaine 1% (Local infiltration access site), Nicardipine (250 mcg intra-arterial after arterial sheath insertion) and Versed (1 mg IV) Summary of Findings Right dominant coronary anatomy Mild coronary atherosclerosis with focal 40% narrowing left circumflex only Left main: Short with mild calcification and no obstruction Left anterior descending: Type III in distribution with 2 small diagonal branches in its midportion and 2 large septal branches. Within the left anterior descending there is a long 30% narrowing in its proximal portion but no other obstruction Ramus intermedius: Large bifurcating vessel with mild irregularities Left circumflex: Large caliber but nondominant consisting of a single large obtuse marginal with 30% ostial narrowing, 40% mid vessel stenosis Right coronary artery: Moderately large vessel dominant distribution. Gives rise to a very large right ventricular branch shortly after its origin, a small posterior descending artery, and a long terminal posterior ventricular branch. There are mild luminal irregularities only LV angiography not performed Left ventricular end-diastolic pressure 18-20 Hemodynamics Rest Ao:: 127/55/81 Final Ao: 133/55/83 LV: 131/2/20 Recommendations Recommendations: Medical Therapy and/or Counseling Specimens Specimens: None Radiation Exposure (mGy) 920 Contrast (mls) 75 Fluids (cc crystalloids) Fluids (cc crystalloids): 20 Anesthesia Start 8:06, stop 8:31 Procedural Complication(s) None Disposition Recovery Room\PACU I attest to the content of the Intraoperative Record and any orders documented therein. Any exceptions are noted below. ACC Data: Level Vial Sealer Cardiac Status Clinical evaluation leading to the procedure 78-year-old male with known vascular disease and cardiac risk factors presented with acute respiratory failure multifactorial. Cardiac evaluation included elevated troponins and wall motion abnormalities septum and inferior wall suggestive of possible acute coronary syndrome versus hypoxia/stress mediated abnormalities CAD Presenation: Non STEMI Anginal Classification: CCS III Heart Failure: Yes Cardiogenic Shock within 24 Hours: No Cardiac Arrest within 24 Hours: No Imaging Studies Past 6 Months: Yes Stress Studies Past 6 Months: No Standard Exercise Test: No Stress Echocardiogram: No Stress Testing w/SPECT MPI: No Cardiac CTA: No STEMI OR Non-STEMI Symptom Onset Date: 03/09/19 Symptom Onset Time: 22:00 Thrombolytics: No Coronary Anatomy Dominant: Right Left Main (% Stenosis): Normal LAD (% Stenosis): Proximal (30) D1 (% Stenosis): Normal D2 (% Stenosis): Normal Circumflex (% Stenosis): Ostial (30) and Mid (40) RCA (% Stenosis): Mid (Mild irregularities) R PDA (% Stenosis): Normal R PL1 (% Stenosis): Normal Ramus (% Stenosis): Proximal (Moderate irregularities) Diagnostic Physicians Name: Armando Rocha MD Status: Urgent Closure Device Percutaneous Entry Location: Radial Closure Device: Radial Band Recommendations: Medical Therapy and/or Counseling
[2019-03-11] MEDS: ATORVASTATIN 40 MG TAB PO SCH (09:24)
[2019-03-11] MEDS: carvediloL 12.5 MG TAB PO SCH ×2 (09:24→20:36)
[2019-03-11] MEDS: CLOPIDOGREL BISULFATE 75 MG TAB PO SCH (09:24)
[2019-03-11] MEDS: LOSARTAN POTASSIUM 50 MG TAB PO SCH (09:24)
[2019-03-11] MEDS: PANTOprazole 40 MG TAB PO SCH (09:24)
[2019-03-11] MEDS: AMLODIPINE BESYLATE 5 MG TAB PO SCH (09:25)
[2019-03-11] MEDS: predniSONE 20 MG TAB PO SCH (09:25)
[2019-03-11] MEDS: FAMOTIDINE 20 MG in SYRINGE 3 ML IV SCH ×2 (09:30→20:59)
[2019-03-11] MEDS: cefTRIAXone SODIUM 2,000 MG in DEXTROSE 5% 50 ML IV SCH (09:30)
--- NOTE | 2019-03-11 10:37 | Cardiology Progress Note ---
Date of Service March 11, 2019 Assessment & Plan (1) Respiratory failure: Patient admitted with acute respiratory failure, respiratory arrest suspicious for multifactorial etiology. Now improving with antibiotics and corticosteroids Cardiac catheterization today demonstrates mild to moderate coronary atherosclerosis without obstruction. Suspect EKG, troponin and echocardiographic abnormality secondary to catecholamines and hypoxia Plan: Treat underlying medical issues including pulmonary disease Treat hypertension Continue statin given with known vascular disease prior carotid enterectomy and moderate coronary arthroscope (2) Bronchospasm: Appreciate pulmonology input (3) Non-ST elevated myocardial infarction: As above. Mild to moderate coronary atherosclerosis without obstruction (4) Hypertension: Blood pressures persistently elevated with mildly elevated left end- diastolic pressures. We will discontinue topical nitrates Continue home regimen of carvedilol amlodipine and losartan Add terazosin 2 mg nightly (5) CKD (chronic kidney disease) stage 3, GFR 30-59 ml/min: Transient decline in renal function after initial resuscitation therapies including diuretics We will hydrate post cardiac catheterization, total contrast 75 cc Follow renal function daily Subjective Patient seen and examined, chart medications and telemetry reviewed both pre-and post cardiac catheterization. Patient underwent cardiac catheterization this morning uneventfully with study demonstrating mild to moderate coronary atherosclerosis without obstruction Mildly elevated left ventricular end-diastolic pressure Patient notes breathing is substantially improved today. No chest pains, tachypalpitations, syncope, near syncope. No productive cough. Blood pressures are trending high during this admission Physical Exam Constitutional: + obese Eyes: PERRL, conjunctivae normal, anicteric sclerae ENMT: Mallampati Class: II Neck: trachea midline, no thyromegaly Respiratory: Auscultation: + wheezes (Mild with cough but substantially improved from day prior) Cardiovascular: Rate/Rhythm: regular rate and regular rhythm Heart Sounds: normal S1 and normal S2; no gallop and no murmur Palpation: normal PMI Vessels: normal carotid upstroke, femoral pulses present, dorsalis pedis pulses present and radial pulses present; no JVD, no carotid bruit and no femoral bruit Extremities: no edema Right radial access site with hemo-band in place and no drainage Gastrointestinal (Abdomen): normal bowel sounds, soft, nontender, no hepatosplenomegaly Musculoskeletal: no cyanosis or clubbing, extremities motor strength 5/5 Skin: no rashes, warm and dry Neurologic: PERRL, EOMI, accommodation nl, no face palsy, no dysarthria Psychiatric: A+Ox3, euthymic affect Results & Data Vital Signs (Past 12 Hours) Vital Signs Temp Pulse Pulse Pulse Resp BP BP 03/11/19 10:21 36.7 C 67 20 159/84 H 03/11/19 10:04 36.4 C L 67 20 154/77 H 03/11/19 09:11 36.8 C 68 20 144/67 H 03/11/19 08:55 68 20 149/81 H 03/11/19 08:50 72 20 155/72 H 03/11/19 08:45 72 20 168/72 H 03/11/19 07:45 73 18 170/72 H 03/11/19 07:01 72 18 03/11/19 06:50 36.7 C 69 20 155/75 H 03/11/19 03:02 36.9 C 80 20 160/81 H 03/10/19 23:22 69 16 03/10/19 23:21 36.8 C 78 20 159/83 H Pulse Ox 03/11/19 10:21 95 03/11/19 10:04 92 03/11/19 09:11 93 03/11/19 08:55 94 03/11/19 08:50 94 03/11/19 08:45 94 03/11/19 07:45 95 03/11/19 07:01 92 03/11/19 06:50 93 03/11/19 03:02 94 03/10/19 23:22 97 03/10/19 23:21 98 Laboratory Results Laboratory Results - last 24 hr 03/10/19 03/10/19 03/11/19 01:01 13:16 05:04 WBC 16.26 H RBC 4.64 L Hgb 14.9 Hct 42.8 MCV 92.2 MCH 32.1 MCHC 34.8 RDW Std Deviation 46.2 RDW Coeff of Tay 13.7 Plt Count 188 MPV 11.4 H Immature Gran % (Auto) 0.3 Neut % (Auto) 85.9 Lymph % (Auto) 5.9 Trigg % (Auto) 7.7 Eos % (Auto) 0.1 Baso % (Auto) 0.1 Immature Gran # (Auto) 0.05 H Neut # (Auto) 13.97 H Lymph # (Auto) 0.96 L Trigg # (Auto) 1.26 H Eos # (Auto) 0.01 Baso # (Auto) 0.01 Specimen Type Arterial POC pH 7.29 L POC pCO2 60 H POC pO2 420 H POC HCO3 29 H POC Total CO2 30 POC Base Excess 2.0 H POC ABG O2 Sat 100.0 H Sodium Potassium Chloride Carbon Dioxide Anion Gap BUN Creatinine Est Cr Clr Drug Dosing Est GFR ( Amer) Est GFR (Non-Af Amer) BUN/Creatinine Ratio Glucose Calcium Magnesium Troponin I 0.143 H* 03/11/19 05:04 WBC RBC Hgb Hct MCV MCH MCHC RDW Std Deviation RDW Coeff of Tay Plt Count MPV Immature Gran % (Auto) Neut % (Auto) Lymph % (Auto) Trigg % (Auto) Eos % (Auto) Baso % (Auto) Immature Gran # (Auto) Neut # (Auto) Lymph # (Auto) Trigg # (Auto) Eos # (Auto) Baso # (Auto) Specimen Type POC pH POC pCO2 POC pO2 POC HCO3 POC Total CO2 POC Base Excess POC ABG O2 Sat Sodium 137 Potassium 3.9 Chloride 103 Carbon Dioxide 26 Anion Gap 8.0 BUN 31 H Creatinine 1.63 H D Est Cr Clr Drug Dosing 36.4 Est GFR ( Amer) 46.7 Est GFR (Non-Af Amer) 40.3 BUN/Creatinine Ratio 18.8 Glucose 137 H Calcium 8.8 Magnesium 2.4 Troponin I Diagnostic Findings 11-MAR-2019 06:25:24 [facility]-CCU ROUTINE RETRIEVAL Normal sinus rhythm Prolonged [id number], abnormal ECG When compared with ECG of 10-MAR-2019 10:42, No significant change was found (1) Respiratory failure Chronicity: acute Respiratory failure complication: hypoxia Qualified Code(s): J96.01 - Acute respiratory failure with hypoxia
--- NOTE | 2019-03-11 10:57 | Pulmonology Progress Note ---
Date of Service March 11, 2019 Assessment & Plan (1) Bronchospasm: I think much of his respiratory distress and wheezing was likely silent aspiration into his airways and possibly overt aspiration while eating. He does have residual stroke deficits and his speech is clearly garbled. Needs speech therapy eval and MBS. Continue steroids for 5 days total. Start him on symbicort BID on discharge. Can follow up in the pulm clinic with full PFTs. Probably can be discharged home tomorrow. (2) Respiratory distress: Present on Admission?: Yes (3) Dysarthria: (4) Aspiration into airway: Encounter type: subsequent encounter Qualified Code(s): T17.908D - Unspecified foreign body in respiratory tract, part unspecified causing other injury, subsequent encounter Subjective Patient had LHC today. No chest pain. No fevers, chills or nausea. Mild dry cough today. No wheezing. Physical Exam Constitutional: WD/WN, vitals as above Eyes: PERRL, conjunctivae normal, anicteric sclerae ENMT: external ear and nose normal, oropharynx normal Neck: normal visual inspection Respiratory: normal respiratory effort, lungs clear to auscultation Cardiovascular: RRR, no murmur, no edema Gastrointestinal (Abdomen): normal bowel sounds, soft, nontender, no hepatosplenomegaly Musculoskeletal: no cyanosis or clubbing, extremities motor strength 5/5 Skin: no rashes, warm and dry Neurologic: normal touch/pain/proprioception Garbled speech at times. Lymphatic: no cervical or axillary lymphadenopathy Results & Data Vital Signs (Past 12 Hours) Vital Signs Temp Pulse Pulse Pulse Resp BP BP 03/11/19 10:21 98.1 F 67 20 159/84 H 03/11/19 10:04 97.5 F L 67 20 154/77 H 03/11/19 09:11 98.2 F 68 20 144/67 H 03/11/19 08:55 68 20 149/81 H 03/11/19 08:50 72 20 155/72 H 03/11/19 08:45 72 20 168/72 H 03/11/19 07:45 73 18 170/72 H 03/11/19 07:01 72 18 03/11/19 06:50 98.1 F 69 20 155/75 H 03/11/19 03:02 98.4 F 80 20 160/81 H 03/10/19 23:22 69 16 03/10/19 23:21 98.2 F 78 20 159/83 H Pulse Ox 03/11/19 10:21 95 03/11/19 10:04 92 03/11/19 09:11 93 03/11/19 08:55 94 03/11/19 08:50 94 03/11/19 08:45 94 03/11/19 07:45 95 03/11/19 07:01 92 03/11/19 06:50 93 03/11/19 03:02 94 03/10/19 23:22 97 03/10/19 23:21 98 I personally reviewed pertient labs and chest imaging PG Care Time/CCT Total # of Minutes Spent Total Time Spent with Patient: Total time spent is greater than 50% in coordination of care (as documented) at patient's floor/unit and/or counseling patient:
--- NOTE | 2019-03-11 15:57 | Fluoroscopy Report ---
FL video swallow CLINICAL HISTORY: 78 years-old Male with assess for aspiration. Dysphagia TECHNIQUE: Video fluoroscopic evaluation of swallowing was performed in the AP and lateral projection s by the speech pathology staff. The patient is fed nectar-thick and thin liquid barium, a barium coa berny wafer, and barium pudding. FLUOROSCOPY TIME: 1.5 minutes.. COMPARISON STUDY: CT abdomen and pelvis 03/17/2014 FINDINGS: There is normal hyoid excursion and epiglottic deflection. No significant penetration or as piration identified. Mild esophageal dysmotility with solid consistency. Moderate dysmotility of the mid to distal esophagus with tertiary contractions. IMPRESSION: 1. No aspiration identified. 2. Please see the speech pathologist report for detailed findings and recommendations. Electronically signed by: Wolf Terrazas M.D. 03/11/2019 3:56 PM
--- NOTE | 2019-03-11 19:41 | Hospitalist Progress Note ---
Date of Service March 11, 2019 Assessment & Plan (1) Respiratory failure: Acute respiratory failure CXR showed mild basilar interstitial thickening/edema No pulmonary function test when reviewed outpatient chart solumedrol IV q8h, changed to oral prednisone 40mg daily, will continue for 5 days Continue neb treatment and oxygen supplement Continue abx with Rocephin and doxy for now Pulm on board Will need outpatient pulmonary follow-up for PFTs Continue flonase and nasal saline due to rhinorrhea Speech on board Video swallow showed no aspiration identified. Continue aspiration precaution Elevated troponin Non-ST elevated myocardial infarction Possible related to demand ischemia due to respiratory arrest Troponin on admission normal, then increased to 0.172, then dropped to 0.143 S/P cardiac cath done today showed mild to moderate coronary atherosclerosis without obstruction ECHO showed mid anteroseptum is akinetic. Base segment of inferior and base mid inferoseptum are hypokinetic. EF 55-60% Cardiology on board recommended medical management Continue carvedilol and clopidogrel and losartan Continue monitor in tele HTN BP fluctuates Continue Losartan/amlodipine and carvedilol Continue monitor BP DVT px on heparin subq CODE STATUS FULL CODE Subjective Pt was seen and examined Lying in bed with no distress Pt said that his breathing improves Denies any chest pain, palpitation, dizziness and SOB Physical Exam Physical Exam: General- No acute distress Head- atraumatic Eyes- PERRL, EOMI, ENT- oropharynx clear Neck- supple, no JVD Lungs- +wheezing Heart- regular rhythm; no murmur Abdomen- normal bowel sounds, soft, nontender Extremities- no calf tenderness Neuro- alert, oriented x 3; PERRL, EOMI; no facial palsy; no dysarthria Skin- warm & dry Results & Data Vital Signs (Past 12 Hours) Vital Signs Temp Pulse Pulse Pulse Resp BP BP 03/11/19 19:06 36.4 C L 67 18 129/42 L 03/11/19 19:01 81 20 03/11/19 16:55 63 03/11/19 15:39 63 03/11/19 15:26 36.6 C 69 18 168/84 H 03/11/19 14:55 81 16 03/11/19 13:15 36.5 C 66 20 130/85 03/11/19 11:58 36.4 C L 66 18 160/66 H 03/11/19 11:10 61 14 03/11/19 10:40 62 153/81 H 03/11/19 10:21 36.7 C 67 20 159/84 H 03/11/19 10:04 36.4 C L 67 20 154/77 H 03/11/19 09:18 62 03/11/19 09:11 36.8 C 68 20 144/67 H 03/11/19 08:55 68 20 149/81 H 03/11/19 08:50 72 20 155/72 H 03/11/19 08:45 72 20 168/72 H 03/11/19 07:45 73 18 170/72 H Pulse Ox 03/11/19 19:06 97 03/11/19 19:01 94 03/11/19 16:55 03/11/19 15:39 03/11/19 15:26 96 03/11/19 14:55 96 03/11/19 13:15 96 03/11/19 11:58 93 03/11/19 11:10 94 03/11/19 10:40 95 03/11/19 10:21 95 03/11/19 10:04 92 03/11/19 09:18 03/11/19 09:11 93 03/11/19 08:55 94 03/11/19 08:50 94 03/11/19 08:45 94 03/11/19 07:45 95 (1) Respiratory failure Chronicity: acute Respiratory failure complication: hypoxia Qualified Code(s): J96.01 - Acute respiratory failure with hypoxia
[2019-03-11] MEDS: FLUTICASONE PROPIONATE NA SPR 16 GM BTL SCH (20:36)
[2019-03-11] MEDS ORDERED: TERAZOSIN HCL 1 MG CAP PO SCH (21:00)
[2019-03-12] MEDS: SODIUM CHLORIDE 0.9% 1000ML 1,000 ML IV SCH ×2 (03:02→04:18)
[2019-03-12] MEDS: DOXYCYCLINE HYCLATE 100 MG in DEXTROSE 5% 100 ML IV SCH (05:55)
[2019-03-12] MEDS: HEPARIN SOD 5,000 UNIT/0.5 ML VIAL SQ SCH (06:11)
[2019-03-12 06:14] LABS: Hematocrit (blood only) 41.7 % (42-52); Hemoglobin 14.2 g/dL (14.0-18.0); Mean Corpuscular Hemoglobin 31.8 pg (25-34); Mean Corpuscular Hgb Conc 34.1 g/dL (32-36); Mean Corpuscular Volume 93.3 fL (80-100); Mean Platelet Volume 11.4 fL (7.4-10.4); Platelet Count 155 K/uL (130-400); Red Blood Count 4.47 M/uL (4.7-6.1); White Blood Count 11.72 K/uL (4.8-10.8)
[2019-03-12 06:46] LABS: BUN Creatinine Ratio 19.1 (10-20); Calcium 8.6 mg/dl (8.5-10.1); Creatinine Clr Calc Pharmacy 47.3 ml/min; Est GFR (African American) 63.8
[2019-03-12] MEDS: ALBUT/IPRATROP 3MG/0.5MG NEB 3 ML VIAL NEB SCH ×2 (06:49→11:10)
--- NOTE | 2019-03-12 09:27 | Cardiology Progress Note ---
Date of Service March 12, 2019 Assessment & Plan (1) Respiratory failure: Patient admitted with acute respiratory failure, respiratory arrest suspicious for multifactorial etiology. Now improving with antibiotics and corticosteroids Cardiac catheterization demonstrates mild to moderate coronary atherosclerosis without obstruction. Suspect EKG, troponin and echocardiographic abnormality secondary to catecholamines and hypoxia Plan: Treat underlying medical issues including pulmonary disease Treat hypertension Continue statin given with known vascular disease prior carotid enterectomy and moderate coronary atherosclerosis Would recommend increasing terazosin to 4 mg nightly remove Reyes cath Patient may be discharged from cardiac standpoint would recommend follow-up cardiology 6 to 8 weeks to follow-up hypertension and risk factor modification (2) Bronchospasm: Appreciate pulmonology input (3) Non-ST elevated myocardial infarction: As above. Mild to moderate coronary atherosclerosis without obstruction (4) Hypertension: Blood pressures persistently elevated with mildly elevated left end- diastolic pressures. We will discontinue topical nitrates Continue home regimen of carvedilol amlodipine and losartan Add terazosin 4 mg nightly (5) CKD (chronic kidney disease) stage 3, GFR 30-59 ml/min: Transient decline in renal function after initial resuscitation therapies including diuretics We will hydrate post cardiac catheterization, total contrast 75 cc Follow renal function daily Subjective Patient was seen and examined, chart, telemetry reviewed. Patient feels improved this morning, respiratory status much better. No chest pains tachypalpitations dizziness or lightheadedness. Video swallow yesterday without aspiration Diagnostic cardiac catheterization yesterday only mild to moderate coronary atherosclerosis without obstructive disease Renal functions returned to baseline after hydration Blood pressures elevated since admission likely on the basis of respiratory issues and steroids Overall patient anxious to be discharged home Review of Systems Review of Systems: All systems reviewed & are unremarkable except as noted in HPI & below Physical Exam Constitutional: + obese Eyes: PERRL, conjunctivae normal, anicteric sclerae Right eye with chronic vision loss ENMT: Mallampati Class: II Neck: trachea midline, no thyromegaly + thick neck Well-healed endarterectomy scar Respiratory: + audible wheezes (Right greater than left) Auscultation: + wheezes (Few scattered substantially improved) Cardiovascular: Rate/Rhythm: regular rate and regular rhythm Heart Sounds: normal S1 and normal S2; no gallop and no murmur Palpation: normal PMI Vessels: normal carotid upstroke, femoral pulses present, dorsalis pedis pulses present and radial pulses present; no JVD, no carotid bruit and no femoral bruit Extremities: no edema Gastrointestinal (Abdomen): normal bowel sounds, soft, nontender, no hepatosplenomegaly Musculoskeletal: no cyanosis or clubbing, extremities motor strength 5/5 Skin: no rashes, warm and dry Neurologic: PERRL, EOMI, accommodation nl, no face palsy, no dysarthria Psychiatric: A+Ox3, euthymic affect Results & Data Vital Signs (Past 12 Hours) Vital Signs Temp Pulse Pulse Pulse Resp BP Pulse Ox 03/12/19 08:14 36.4 C L 64 20 183/88 H 96 03/12/19 06:49 67 16 97 03/12/19 03:33 36.5 C 68 21 162/72 H 96 03/11/19 23:22 36.6 C 72 22 174/79 H 95 03/11/19 22:21 81 20 94 Laboratory Results Laboratory Results - last 24 hr 03/12/19 03/12/19 05:41 05:41 WBC 11.72 H RBC 4.47 L Hgb 14.2 Hct 41.7 L MCV 93.3 MCH 31.8 MCHC 34.1 RDW Std Deviation 48.0 H RDW Coeff of Tay 14.0 Plt Count 155 MPV 11.4 H Sodium 140 Potassium 4.0 Chloride 109 H Carbon Dioxide 26 Anion Gap 5.0 BUN 24 H Creatinine 1.26 D Est Cr Clr Drug Dosing 47.3 Est GFR ( Amer) 63.8 Est GFR (Non-Af Amer) 55.0 BUN/Creatinine Ratio 19.1 Glucose 105 H Calcium 8.6 (1) Respiratory failure Chronicity: acute Respiratory failure complication: hypoxia Qualified Code(s): J96.01 - Acute respiratory failure with hypoxia
[2019-03-12] MEDS: LOSARTAN POTASSIUM 50 MG TAB PO SCH (09:56)
[2019-03-12] MEDS: carvediloL 12.5 MG TAB PO SCH (09:56)
[2019-03-12] MEDS: AMLODIPINE BESYLATE 5 MG TAB PO SCH (09:56)
[2019-03-12] MEDS: ATORVASTATIN 40 MG TAB PO SCH (09:56)
[2019-03-12] MEDS: CLOPIDOGREL BISULFATE 75 MG TAB PO SCH (09:57)
[2019-03-12] MEDS: PANTOprazole 40 MG TAB PO SCH (09:57)
[2019-03-12] MEDS: FAMOTIDINE 20 MG in SYRINGE 3 ML IV SCH (09:57)
[2019-03-12] MEDS: predniSONE 20 MG TAB PO SCH (09:57)
[2019-03-12] MEDS: cefTRIAXone SODIUM 2,000 MG in DEXTROSE 5% 50 ML IV SCH (09:58)
--- NOTE | 2019-03-12 11:37 | Pulmonology Progress Note ---
Date of Service March 12, 2019 Assessment & Plan (1) Bronchospasm: Surprisingly, the modified barium swallow and speech evaluation did not demonstrate aspiration. He had some mild dysphasia. I still suspect that he has likely silent aspiration and should follow-up with ENT as an outpatient to evaluate for laryngeal pharyngeal reflux and vocal cord dysfunction. Continue steroids for 5 days total. Start him on symbicort BID on discharge. Can follow up in the pulm clinic with full PFTs. Okay for discharge today. (2) Respiratory distress: (3) Dysarthria: (4) Aspiration into airway: Encounter type: subsequent encounter Qualified Code(s): T17.908D - Unspecified foreign body in respiratory tract, part unspecified causing other injury, subsequent encounter Subjective Patient ready to go home today. He is sitting up at the edge of bed. He is able to ambulate without issue and his saturations maintained well on room air. No chest pain, nausea, vomiting, fevers or chills. Physical Exam Constitutional: WD/WN, vitals as above Eyes: PERRL, conjunctivae normal, anicteric sclerae ENMT: external ear and nose normal, oropharynx normal Neck: normal visual inspection Respiratory: normal respiratory effort, lungs clear to auscultation Auscultation: + wheezes Cardiovascular: RRR, no murmur, no edema Gastrointestinal (Abdomen): normal bowel sounds, soft, nontender, no hepatosplenomegaly Musculoskeletal: no cyanosis or clubbing, extremities motor strength 5/5 Skin: no rashes, warm and dry Neurologic: normal touch/pain/proprioception Lymphatic: no cervical or axillary lymphadenopathy Results & Data Vital Signs (Past 12 Hours) Vital Signs Temp Pulse Pulse Resp BP Pulse Ox 03/12/19 11:10 60 20 96 03/12/19 09:48 70 136/70 03/12/19 08:14 97.5 F L 64 20 183/88 H 96 03/12/19 06:49 67 16 97 03/12/19 03:33 97.7 F 68 21 162/72 H 96 PG Care Time/CCT Total # of Minutes Spent Total Time Spent with Patient: Total time spent is greater than 50% in coordination of care (as documented) at patient's floor/unit and/or counseling patient:
--- NOTE | 2019-03-12 12:28 | Hospitalist Progress Note ---
Date of Service March 12, 2019 Assessment & Plan (1) Respiratory failure: Acute respiratory failure CXR showed mild basilar interstitial thickening/edema No pulmonary function test when reviewed outpatient chart solumedrol IV q8h, changed to oral prednisone 40mg daily, will continue for 5 days Continue neb treatment and oxygen supplement Continue abx with Rocephin and doxy for now Pulm on board Starting n Simbicort BID Continue flonase and nasal saline due to rhinorrhea Continue prednisone to complete a total 5 days course Speech on board Video swallow showed no aspiration identified. Continue aspiration precaution Will need outpatient follow up with ENT to evaluate for laryngeal pharyngeal reflux and vocal cord dysfunction. Will need outpatient pulmonary follow-up for PFTs Clinically improves significantly Ok from pulmonology stand point to discharge home Elevated troponin Possible related to type 2 demand ischemia due to acute respiratory failure and respiratory arrest Troponin on admission normal, then increased to 0.172, then dropped to 0.143 S/P cardiac cath done today showed mild to moderate coronary atherosclerosis without obstruction ECHO showed mid anteroseptum is akinetic. Base segment of inferior and base mid inferoseptum are hypokinetic. EF 55-60% Cardiology on board recommended medical management Continue carvedilol and clopidogrel and losartan Ok from cardiology standpoint to discharge home HTN BP fluctuates Continue Losartan/amlodipine and carvedilol cardiology recommended to increase terazosin to 4 mg nightly Follow-up with cardiology in 6 to 8 weeks for hypertension and risk factor modification CKD stage 3 Creatinine stable at 1.2 today Avoid nephrotoxic agents DVT px on heparin subq CODE STATUS FULL CODE Disposition Will discharge home today Follow up with [facility]ology in 1 to 2 weeks Follow up with cardiology in 6 to 8 weeks Subjective Pt was seen and examined Lying in bed with no distress with at bedside Pt said that he feels much better He is saturated well on RA Denies any chest pain, palpitation, dizziness and SOB Physical Exam Physical Exam: General- No acute distress Head- atraumatic Eyes- PERRL, EOMI, ENT- oropharynx clear Neck- supple, no JVD Lungs- +faint wheezing Heart- regular rhythm; no murmur Abdomen- normal bowel sounds, soft, nontender Extremities- no calf tenderness Neuro- alert, oriented x 3; PERRL, EOMI; no facial palsy; no dysarthria Skin- warm & dry Results & Data Vital Signs (Past 12 Hours) Vital Signs Temp Pulse Pulse Resp BP Pulse Ox 03/12/19 11:58 36.7 C 61 20 141/62 H 94 03/12/19 11:10 60 20 96 03/12/19 09:48 70 136/70 03/12/19 08:14 36.4 C L 64 20 183/88 H 96 03/12/19 06:49 67 16 97 03/12/19 03:33 36.5 C 68 21 162/72 H 96 (1) Respiratory failure Chronicity: acute Respiratory failure complication: hypoxia Qualified Code(s): J96.01 - Acute respiratory failure with hypoxia
--- NOTE | 2019-03-13 09:11 | Discharge Summary ---
Date of Service March 12, 2019 Admission HPI Per Admitting Provider CHIEF COMPLAINT: Shortness of breath, respiratory distress and respiratory arrest. 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 As per , the patient was complaining of cough since last 1 week, bringing up yellowish phlegm. In the last couple of days, he is feeling somewhat short of breath. In the middle of night at 11:00, he woke up and was complaining that he could not breathe and they went out to porch to get some air. He suddenly collapsed and EMS was called and EMS bagged him and put him on CPAP and brought him here. Initially, he was somewhat agitated, so ER physician gave him some Ativan. Currently, he is saturating okay on BiPAP. Hemodynamics stable. Currently, he is alert and awake and oriented. His labs showed white count of 13, creatinine of 1.5. Lactate of 2.6, sugars 223. Troponin is negative. UA is unremarkable. Flu is negative. Chest x-ray shows mild congestion. In the ER, he was given a dose of IV Lasix. The patient currently complaints of heartburn. Denies any chest pain. When he coughs, he gets epigastric pain No diarrhea or constipation. No swelling in the legs, no rash. As per and daughter, he quit smoking about 20 years ago. As per the [facility], he smoked 1.5 packs a day for 20 years. He was wheezing on exam. He presented with orthopnea and shortness of breath and wheezing in February 2014. At that time, he was treated with steroids and nebs, and improved. CT chest with no significant findings at that time and got discharged. No fevers or chills at home. No nausea, no vomiting, no headaches. During epsiode no shaking of the body. Admission Exam Per Admitting Provider GENERAL: Initially was drowsy, but currently alert and awake. VITAL SIGNS: Temperature 36.5, pulse 64, respiratory rate 23, blood pressure 160/94, oxygen 100% on BiPAP, currently on 50% FIO2. HEENT: Right eye is blind. Left eye pupil is reactive to light. NECK: No JVD, no neck masses, no carotid bruits. CARDIOVASCULAR: S1, S2 heard, regular rate and rhythm, no murmur, no gallop. RESPIRATORY SYSTEM: Normal AP diameter. No accessory muscle use. Bilateral wheezing heard, mild bibasilar crackles?. ABDOMEN: Soft, bowel sounds present. Epigastric tenderness present, no guarding, no rigidity. Erythematous rash in lower abdomen. EXTREMITIES: No edema, no erythema. Principal Diagnosis Acute Respiratory failure/respiratory arrest Hypertension Elevated troponin Chronic kidney disease stage 3 Discharge Exam General- No acute distress Head- atraumatic Eyes- PERRL, EOMI, ENT- oropharynx clear Neck- supple, no JVD Lungs- +faint wheezing Heart- regular rhythm; no murmur Abdomen- normal bowel sounds, soft, nontender Extremities- no calf tenderness Neuro- alert, oriented x 3; PERRL, EOMI; no facial palsy; no dysarthria Skin- warm & dry Discharge Data Allergies Allergy/AdvReac Type Severity Reaction Status Date / Time No Known Allergies Allergy Unverified 03/10/19 01:03 Consultations 03/10/19 02:30 ED Decision to Admit Stat 03/10/19 03:46 Consult Case Management - Discharge Planning Routine 03/10/19 07:27 Consult Cardiology Routine 03/10/19 10:07 Consult Pulmonology Routine Procedures Performed Operation Date: 03/11/19 08:00 Actual Procedures p Cath, Left with Cors and Vent - Armando Rocha MD s Cineradiography w/Routine Exam - Armando Rocha MD Ordered Studies 03/10/19 03:38 US venous doppler LE BI Urgent 03/11/19 06:39 CL Cath Imgs for PACS use only Routine 03/11/19 14:30 FL video swallow Routine FL video swallow CLINICAL HISTORY: 78 years-old Male with assess for aspiration. Dysphagia TECHNIQUE: Video fluoroscopic evaluation of swallowing was performed in the AP and lateral projections by the speech pathology staff. The patient is fed nectar-thick and thin liquid barium, a barium coated wafer, and barium pudding. FLUOROSCOPY TIME: 1.5 minutes.. COMPARISON STUDY: CT abdomen and pelvis 03/17/2014 FINDINGS: There is normal hyoid excursion and epiglottic deflection. No signific ant penetration or aspiration identified. Mild esophageal dysmotility with solid consistency. Moderate dysmotility of the mid to distal esophagus with tertiary contractions. IMPRESSION: 1. No aspiration identified. 2. Please see the speech pathologist report for detailed findings and recommendations. Electronically signed by: Wolf Terrazas M.D. 03/11/2019 3:56 PM Dictated: 03/11/19 1555 Transcribed: 03/11/19 1555 BILATERAL LOWER EXTREMITY VENOUS DOPPLER HISTORY: Acute pain and swelling of the bilateral lower extremities dvt? COMPARISON STUDY: None. FINDINGS: There is normal compressibility, flow, and augmentation within the bilateral lower extremity deep venous systems. IMPRESSION: No DVT within the right or left lower extremity. Electronically signed by: Wolf Terrazas M.D. 03/10/2019 6:24 AM Dictated: 03/10/19623 Transcribed: 03/10/19623 XR chest 1V portable CLINICAL HISTORY: Shortness of breath COMPARISON STUDY: 03/17/2014 FINDINGS: The cardiac and mediastinal contours remain stable. There is no failure. There is no lobar consolidation. There is mild basilar interstitial thickening. There are no significant pleural effusions.[ IMPRESSION: Mild basilar interstitial thickening/edema. Correlate clinically for evidence of mild congestive failure/fluid overload. Electronically signed by: Ken Lynch M.D. 03/10/2019 6:52 AM Dictated: 03/10/1949 Transcribed: 03/10/19650 Hospital Course (1) Respiratory failure: Acute respiratory failure CXR showed mild basilar interstitial thickening/edema No pulmonary function test when reviewed outpatient chart solumedrol IV q8h, changed to oral prednisone 40mg daily, will continue for 5 days Continue neb treatment and oxygen supplement Continue abx with Rocephin and doxy for now Pulm on board Starting n Simbicort BID Continue flonase and nasal saline due to rhinorrhea Continue prednisone to complete a total 5 days course Speech on board Video swallow showed no aspiration identified. Continue aspiration precaution Will need outpatient follow up with ENT to evaluate for laryngeal pharyngeal reflux and vocal cord dysfunction. Will need outpatient pulmonary follow-up for PFTs Clinically improves significantly Ok from pulmonology stand point to discharge home Elevated troponin Possible related to type 2 demand ischemia due to acute respiratory failure and respiratory arrest Troponin on admission normal, then increased to 0.172, then dropped to 0.143 S/P cardiac cath done today showed mild to moderate coronary atherosclerosis without obstruction ECHO showed mid anteroseptum is akinetic. Base segment of inferior and base mid inferoseptum are hypokinetic. EF 55-60% Cardiology on board recommended medical management Continue carvedilol and clopidogrel and losartan Ok from cardiology standpoint to discharge home HTN BP fluctuates Continue Losartan/amlodipine and carvedilol cardiology recommended to increase terazosin to 4 mg nightly Follow-up with cardiology in 6 to 8 weeks for hypertension and risk factor modification CKD stage 3 Creatinine stable at 1.2 today Avoid nephrotoxic agents DVT px on heparin subq CODE STATUS FULL CODE Disposition Will discharge home today Follow up with [facility] in 1 to 2 weeks Follow up with cardiology in 6 to 8 weeks Total Time Total Time Spent Total Time Spent (In Minutes): 35 minutes Total Time Includes: Examination of the Patient, Discharge Planning, Medication Reconciliation, Communication With Other Providers and Other Discharge Plan Discharge Items Patient Disposition: Home - Self-Care Reason For Visit: RESPIRATORY DISTRESS Discharge Diagnosis: Acute Respiratory failure/respiratory arrest Hypertension Elevated troponin Chronic kidney disease stage 3 Activity: Resume your previous activity Activity Comment: as tolerated Non-emergency contact: Primary Care Provider, District Manager [employer] and [employer] Call non-emergency contact if: you have any medication questions Follow-up/Referrals: Richard Domínguez MD [Primary Care Provider] - Diet: Heart Healthy Addtl Attending Provider Instructions: Follow up with your primary care provider Dr. Regalado (Dr. Domínguez's colleague) On March 16@ 10:55 AM Follow up with cardiology in 6 to 8 weeks (Cardiology clinic will call you for the appointment) Follow up with [facility] in 1 to 2 weeks You will need to get a pulmonary function test (The lung specialist will arrange that for you) You will need to see an ENT to evaluate for laryngeal pharyngeal reflux and vocal cord dysfunction (Your primary care provider will arrange for the referral) Terazosin increased to 4mg at night (Monitor your blood pressure and bring your blood pressure log at your next appointment with your physician) Starting on Symbicort for your breathing (Please rinse your mouth with water after using the symbicort to prevent thrush formation) Check your LFT in 1 to 2 weeks to monitor your liver enzymes since starting on atorvastatin Fall precaution Pending Studies at Discharge: No Stand-Alone Forms: My [facility], Smoking Cessation Medications and DC Order Prescriptions: New atorvastatin 40 mg Tablet 40 mg PO QAM Qty: 30 RF: 0 prednisone 20 mg Tablet 40 mg PO DAILY Qty: 4 RF: 0 fluticasone propionate 50 mcg/actuation [place],Suspension 2 spry NA HS Qty: 1 RF: 0 terazosin 2 mg capsule 4 mg PO DAILY 30 Days Qty: 60 RF: 0 Symbicort 80-4.5 mcg/actuation HFA aerosol inhaler 2 puffs INH BID 30 Days Qty: 10.2 RF: 0 sodium chloride 0.65 % aerosol,spray 2 sprays intranasal Q6 PRN (Reason: nasal congestion) Qty: 30 RF: 0 doxycycline hyclate 100 mg tablet 100 mg PO BID 3 Days Qty: 6 RF: 0 Continued carvedilol 12.5 mg Tablet 12.5 mg PO BID RF: 0 clopidogrel [Plavix] 75 mg Tablet 75 mg PO DAILY RF: 0 omeprazole 20 mg Capsule,Delayed Release(Dr/Ec) 20 mg PO DAILY RF: 0 furosemide [Lasix] 20 mg Tablet 20 mg PO DAILY RF: 0 losartan 100 mg Tablet 100 mg PO DAILY RF: 0 amlodipine 10 mg Tablet 10 mg PO DAILY RF: 0 albuterol sulfate 90 mcg/actuation Hfa Aerosol Inhaler 2 puff INHALATION Q4H PRN (Reason: Wheezing) RF: 0 Discharge Orders: Discharge Order (Routine); Ordered 03/12/19 Ordered By: Hamzah Espinoza Admission Data Admit Date/Time: 03/10/19 03:02 Attending Provider: Hamzah Espinoza Admit Provider: Steve Keen Primary Care Provider: Richard Domínguez Other Providers: Steve Keen ; Fozia Feliciano I. ; Joseph Lui ; Darnell Feng ; Armando Rocha ; Christian Delatorre ; Rodolfo Santiago ; Tylor Montelongo ; Lesly Cates ; Alysa Gordon ; Sawyer Cardona Other Interventions: Discharge Summary Assessment (RN) Last Done: 03/12/19 13:56 DC Date/Time DO NOT enter until pt leaves facility: 03/12/19 14:46
--- NOTE | 2019-03-16 14:59 | Coding Query ---
CONGESTIVE HEART FAILURE To Promote full compliance with coding requirements relating to patient care, physician participation is requested in all cases of interior design program chair uncertainty. Please assist us with the following questions. A diagnosis of Congestive Heart Failure is documented in the patient's medical record. To accurately code this diagnosis and to compare patient severity, we ask that you specify the type of heart failure by placing an X within the parenthesis (x). SYSTOLIC HEART FAILURE ( ) Acute ( ) Chronic ( ) Acute on Chronic ( ) Rheumatic ( ) Unknown DIASTOLIC HEART FAILURE ( ) Acute ( x) Chronic ( ) Acute on Chronic ( ) Rheumatic ( ) Unknown COMBINED SYSTOLIC AND DIASTOLIC HEART FAILURE ( ) Acute ( ) Chronic ( ) Acute on Chronic ( ) Rheumatic ( ) Unknown Was the CHF Present On Admission? Please check the appropriate box: ( ) Present on Admission ( ) Not Present On Admission ( ) Clinically undetermined Thank you Raghu [facility]
== END 2019-03-12 14:46 | disposition home or self-care (01) | DRG 205 ==
LOC: ED 00:45 → SUATTDRO 03:02 → 2S 03:02

== ENCOUNTER 2019-04-16 05:15 | Observation (INO) ==
[2019-04-16] MEDS ORDERED: NITROGLYCERIN SL 0.4 MG/TAB TAB SL STA (05:25)
[2019-04-16] MEDS ORDERED: ASPIRIN CHEW 324 MG PO STA (05:25)
[2019-04-16 05:45] LABS: Basophils # (auto) 0.03 K/uL (0-0.2); Basophils % (auto) 0.3 %; Eosinophils # (auto) 0.25 K/uL (0-0.5); Eosinophils % (auto) 2.7 %; Hematocrit (blood only) 44.4 % (42-52); Immature Granulocytes # (auto) 0.03 K/uL (0.00-0.02); Immature Granulocytes % (auto) 0.3 %; Lymphocytes # (auto) 1.34 K/uL (1.2-3.4); Lymphocytes % (auto) 14.7 %; Mean Corpuscular Hemoglobin 31.4 pg (25-34); Mean Corpuscular Hgb Conc 33.8 g/dL (32-36); Mean Corpuscular Volume 92.9 fL (80-100); Monocytes % (auto) 8.8 %; Neutrophils # (auto) 6.67 K/uL (1.4-6.5); Neutrophils % (auto) 73.2 %; Platelet Count 162 K/uL (130-400); RDW Coefficient of Variation 13.4 % (11.5-14.5); RDW Standard Deviation 45.7 fL (36.4-46.3); Red Blood Count 4.78 M/uL (4.7-6.1); White Blood Count 9.12 K/uL (4.8-10.8)
[2019-04-16] MEDS ORDERED: LEVOFLOXACIN/D5W 750 MG/150 ML BAG IV SCH (05:45)
[2019-04-16 06:03] LABS: D Dimer 450 ug/L FEU (0-500)
[2019-04-16 06:04] LABS: Alanine Aminotransferase 20 U/L (12-78); Aspartate Aminotransferase 11 U/L (15-37); BUN Creatinine Ratio 12.8 (10-20); Blood Urea Nitrogen 16 mg/dl (7-18); Calcium 9.5 mg/dl (8.5-10.1); Carbon Dioxide 28 mmol/L (21-32); Chloride 109 mmol/L (98-107); Creatinine Clr Calc Pharmacy 47.4 ml/min; Est GFR (African American) 64.4; Est GFR (Non-African American) 55.6; Glucose 112 mg/dl (70-99); Lipase 106 U/L (73-393); Potassium 3.9 mmol/L (3.5-5.1); Sodium 141 mmol/L (136-145)
[2019-04-16 06:09] LABS: Albumin Globulin Ratio 1.1 (0.9-2); Alkaline Phosphatase 131 U/L (45-117); Bilirubin,Total 0.8 mg/dl (0.2-1); Globulin 3.7 gm/dl (2.5-4.0); Total Protein 7.7 gm/dl (6.4-8.2); Troponin I < 0.015 ng/ml (0-0.045)
[2019-04-16] MEDS ORDERED: ALBUTEROL 0.083% NEBU SOLN 3 ML VIAL NEB STA (06:19)
[2019-04-16] MEDS ORDERED: methylPREDNISolone 125 MG/2 ML VIAL IV STA (06:19)
--- NOTE | 2019-04-16 06:44 | XRay Report ---
XR chest 1V portable CLINICAL HISTORY: Cough, shortness of breath, chest pain. COMPARISON STUDY: 03/10/2019 FINDINGS: The heart is the upper limits of normal in size. There is no failure. There is no focal pul monary consolidation. There are no pleural effusions. There is no pneumothorax.[ IMPRESSION: No active disease in the chest. Electronically signed by: Ken Lynch M.D. 04/16/2019 6:43 AM
--- NOTE | 2019-04-16 06:50 | Emergency Department Note ---
Entered by Missy Padilla acting as a scribe for History of Present Illness General Chief complaint: Chest Pain Stated complaint: CHEST PAIN Source: patient History of Present Illness Provider complaint: chest pain Onset (ago): hour(s) 4 Location: chest Severity: similar to prior episodes Pain Consistency: + other (worsening ) Quality: + other (chest pain) Associated symptoms: + cough, + shortness of breath and + other (Positive rhinorrhea; Negative upper extremity pain; Negative abdominal pain; Negative jaw pain); no nausea/vomiting The patient, who is a 78 year old male with a medical history of bronchitis, acute dyspnea and respiratory distress, who presents to the Emergency Room with complaints of chest pain that started at 0130. The patient locates the pain in the center of his chest. The patient reports having shortness of breath with his chest pain. The patient expresses that this pain worsens when he takes a deep breath. The patient notes that his shortness of breath has been worsening. The patient confirms that he has had a cough with yellow production and congestion for over a week. The patient states that he has rhinorrhea. The patient denies upper extremity, abdominal or jaw pain. The patient denies nausea and vomiting. The patient denies a history of blood clots or clotting disorders, asthma or COPD. The patient denies a history of myocardial infarctions. Home Medications Home Medications Medication Instructions Recorded Confirmed Type albuterol sulfate 2 puff INHALATION Q4H PRN 03/10/19 04/16/19 History amlodipine 10 mg PO DAILY 03/10/19 04/16/19 History clopidogrel [Plavix] 75 mg PO DAILY 03/10/19 04/16/19 History furosemide [Lasix] 20 mg PO DAILY 03/10/19 04/16/19 History losartan 100 mg PO DAILY 03/10/19 04/16/19 History atorvastatin 40 mg PO QAM #30 tab 03/12/19 04/16/19 Rx fluticasone propionate 2 spry NA HS #1 g 03/12/19 04/16/19 Rx sodium chloride 2 sprays INTRANASAL Q6 PRN #30 ml 03/12/19 04/16/19 Rx budesonide-formoterol [Symbicort] 2 puff INHALATION BID 04/16/19 04/16/19 History carvedilol 25 mg PO BID 04/16/19 04/16/19 History pantoprazole 20 mg PO DAILY 04/16/19 04/16/19 History terazosin 2 mg PO DAILY 04/16/19 04/16/19 History Allergies Allergy/AdvReac Type Severity Reaction Status Date / Time No Known Allergies Allergy Unverified 03/30/19 09:44 Past Med/Surg History Medical History Carotid artery stenosis COPD (chronic obstructive pulmonary disease) GERD (gastroesophageal reflux disease) Hypertension Mild intermittent asthma VALARIE (obstructive sleep apnea) Wheezing Surgical History Traumatic enucleation of right eye Family History Other Medical history non-contributory Social History Preferred Language: Bahraini Communication Ability: Effective Beliefs That Will Affect Care: None marital status: marital status details: 51 years Current Living Situation: Spouse current occupational status: retired Feels Safe at Home: Yes Smoking Status: Never smoker Second Hand Exposure: Yes (As a child. Father when patient was 15 years old) ; Hx Alcohol Use: No Hx Substance Use: No during the past year weight has: remained stable Review of Systems See HPI for pertinent positives & negatives. and A total of 10 systems reviewed and were otherwise negative Physical Exam Vital Signs Vital Signs - 24 hr 04/16/19 05:20 04/16/19 05:21 04/16/19 05:23 Temperature 36.7 C Temperature Source Oral Pulse Rate 61 61 Pulse Rate [Right Finger] Pulse Rate from SpO2 Sensor 60 Respiratory Rate 22 18 19 Respiratory Effort / Characteristics Respiratory Depth Normal Blood Pressure 190/82 H 190/82 H Blood Pressure Mean 118 102 Blood Pressure Position Sitting Pulse Oximetry 96 99 99 Oxygen Delivery Method Room Air Room Air Room Air Sepsis Recent Fever Within 48 Hours No Sepsis Action Taken by Nursing No Action Required 04/16/19 05:26 04/16/19 05:30 04/16/19 05:38 Temperature Temperature Source Pulse Rate 61 74 Pulse Rate [Right Finger] Pulse Rate from SpO2 Sensor 67 Respiratory Rate 22 20 Respiratory Effort / Characteristics Respiratory Depth Blood Pressure 119/83 Blood Pressure Mean 96 Blood Pressure Position Pulse Oximetry 96 96 Oxygen Delivery Method Room Air Room Air Sepsis Recent Fever Within 48 Hours Sepsis Action Taken by Nursing 04/16/19 05:39 04/16/19 05:41 04/16/19 05:42 Temperature Temperature Source Pulse Rate 62 60 60 Pulse Rate [Right Finger] Pulse Rate from SpO2 Sensor 61 Respiratory Rate 18 18 19 Respiratory Effort / Characteristics Respiratory Depth Blood Pressure 128/59 L Blood Pressure Mean 88 Blood Pressure Position Pulse Oximetry 96 96 96 Oxygen Delivery Method Sepsis Recent Fever Within 48 Hours Sepsis Action Taken by Nursing 04/16/19 05:45 04/16/19 05:46 04/16/19 06:00 Temperature Temperature Source Pulse Rate 56 L 57 L 51 L Pulse Rate [Right Finger] Pulse Rate from SpO2 Sensor 52 L 52 L Respiratory Rate 20 22 24 Respiratory Effort / Characteristics Respiratory Depth Blood Pressure 116/62 132/63 Blood Pressure Mean 81 73 Blood Pressure Position Pulse Oximetry 94 96 96 Oxygen Delivery Method Sepsis Recent Fever Within 48 Hours Sepsis Action Taken by Nursing 04/16/19 06:01 04/16/19 06:30 04/16/19 06:31 Temperature Temperature Source Pulse Rate 53 L 54 L 57 L Pulse Rate [Right Finger] Pulse Rate from SpO2 Sensor 52 L 55 L 56 L Respiratory Rate 19 15 14 Respiratory Effort / Characteristics Respiratory Depth Blood Pressure 122/67 Blood Pressure Mean 93 Blood Pressure Position Pulse Oximetry 95 100 100 Oxygen Delivery Method Sepsis Recent Fever Within 48 Hours Sepsis Action Taken by Nursing 04/16/19 06:32 Temperature Temperature Source Pulse Rate Pulse Rate [Right Finger] 57 L Pulse Rate from SpO2 Sensor Respiratory Rate 20 Respiratory Effort / Characteristics Non-Labored Respiratory Depth Blood Pressure Blood Pressure Mean Blood Pressure Position Pulse Oximetry 97 Oxygen Delivery Method Room Air Sepsis Recent Fever Within 48 Hours Sepsis Action Taken by Nursing GENERAL: alert, well nourished, mild distress, non-toxic, chronically ill tima earing, sitting up in bed, dyspneic with conversation EYE EXAM: normal conjunctiva, right pupil dilated, left pupil reactive. OROPHARYNX: no exudate, no erythema, lips, buccal mucosa, and tongue normal and mucous membranes are moist NECK: supple, no nuchal rigidity, no adenopathy, non-tender LUNGS: Diminished to bilateral bases with mild wheezing. Normal chest wall mechanics HEART: no murmurs, S1 normal and S2 normal ABDOMEN: abdomen soft, non-tender, normo-active bowel sounds, no masses, no re bound or guarding. BACK: Back is symmetrical on inspection and there is no deformity, no midline te nderness, no CVA tenderness. SKIN: no rashes and no bruising UPPER EXTREMITIES: upper extremities are grossly normal. LOWER EXTREMITIES: No pitting edema. NEURO EXAM: Normal sensorium, cranial nerves II-XII grossly intact, normal speech, no gross weakness of arms, no gross weakness of legs. Course Course ED COURSE: Vital signs were reviewed and showed 40% left LED, 30% obtuse marginal, 40% stenosis, 30% LED, 55% EF The patients medical record was reviewed The above diagnostic studies were performed and reviewed. ED treatments and interventions as stated above. 0520: The patient was evaluated in room A3. A complete history and physical examination was performed. 0619: I reassessed the patient who states his chest pain has improved after administration of the nitro. BP came down as well. 0622: I [facility] the patient[facility] He will evaluate the patient for further management. Based on the patients age, coexisting illnesses, exam and lab findings the decision to treat as an inpatient was made. The patient remained stable while under my care. The patient will be evaluated for further management. Consultations Consultation #1: I reviewed the patient's [facility]. He will evaluate the patient for further management. Time: 06:22 Administered Medications Levofloxacin/Dextrose (Levaquin/D5w) 750 mg in 150 mls @ 100 mls/hr IV Q24H MORIS Stop: 04/18/19 05:44 Last Admin: 04/16/19 05:49 Dose: 100 mls/hr Documented by: [id number] Discontinued Medications Albuterol (Ventolin 0.083% 2.5mg/3ml) 5 mg NEB NOW STA Stop: 04/16/19 06:20 Last Admin: 04/16/19 06:27 Dose: 5 mg Documented by: [id number] Aspirin (Aspirin) 324 mg PO NOW STA Stop: 04/16/19 05:26 Last Admin: 04/16/19 05:32 Dose: 324 mg Documented by: [id number] Methylprednisolone (Solumedrol) 60 mg IV NOW STA Stop: 04/16/19 06:20 Last Admin: 04/16/19 06:24 Dose: 60 mg Documented by: [id number] Nitroglycerin (Nitrostat) 0.4 mg SL NOW STA Stop: 04/16/19 05:26 Last Admin: 04/16/19 05:32 Dose: 0.4 mg Documented by: [id number] Medical Decision Making Differential Diagnosis Differential diagnosis includes: cardiac ischemia, aortic dissection, pulmonary embolism, pneumonia, pneumothorax, musculoskeletal, infections, pericarditis, myocarditis, esophageal rupture, gastrointestinal, as well as others were entertained. Medical Records Attestation: I reviewed the patient's medical records. Home Medications Current Medication List: was personally reviewed by me Laboratory Data Attestation: I reviewed the patient's lab results. Result diagrams: 04/16/19 05:34 04/16/19 05:34 Lab Results 04/16/19 04/16/19 04/16/19 Range/Units 05:34 05:34 05:34 WBC 9.12 (4.8-10.8) K/uL RBC 4.78 (4.7-6.1) M/uL Hgb 15.0 (14.0-18.0) g/dL Hct 44.4 (42-52) % MCV 92.9 (80-100) fL MCH 31.4 (25-34) pg MCHC 33.8 (32-36) g/dL RDW Std Deviation 45.7 (36.4-46.3) fL RDW Coeff of Tay 13.4 (11.5-14.5) % Plt Count 162 (130-400) K/uL MPV 12.0 H (7.4-10.4) fL Immature Gran % (Auto) 0.3 % Neut % (Auto) 73.2 % Lymph % (Auto) 14.7 % [place] % (Auto) 8.8 % Eos % (Auto) 2.7 % Baso % (Auto) 0.3 % Immature Gran # (Auto) 0.03 H (0.00-0.02) K/uL Neut # (Auto) 6.67 H (1.4-6.5) K/uL Lymph # (Auto) 1.34 (1.2-3.4) K/uL [place] # (Auto) 0.80 H (0.11-0.59) K/uL Eos # (Auto) 0.25 (0-0.5) K/uL Baso # (Auto) 0.03 (0-0.2) K/uL D-Dimer 450 (0-500) ug/L FEU Sodium 141 (136-145) mmol/L Potassium 3.9 (3.5-5.1) mmol/L Chloride 109 H (98-107) mmol/L Carbon Dioxide 28 (21-32) mmol/L Anion Gap 4.0 (3-11) BUN 16 (7-18) mg/dl Creatinine 1.25 (0.6-1.4) mg/dl Est Cr Clr Drug Dosing 47.4 ml/min Est GFR ( Amer) 64.4 Est GFR (Non-Af Amer) 55.6 BUN/Creatinine Ratio 12.8 (10-20) Glucose 112 H (70-99) mg/dl Calcium 9.5 (8.5-10.1) mg/dl Total Bilirubin 0.8 (0.2-1) mg/dl AST 11 L (15-37) U/L ALT 20 (12-78) U/L Alkaline Phosphatase 131 H (45-117) U/L Troponin I < 0.015 (0-0.045) ng/ml Total Protein 7.7 (6.4-8.2) gm/dl Albumin 4.0 (3.4-5.0) gm/dl Globulin 3.7 (2.5-4.0) gm/dl Albumin/Globulin Ratio 1.1 (0.9-2) Lipase 106 (73-393) U/L Influenza Type A Ag (Neg) Influenza Type B Ag (Neg) 04/16/19 Range/Units 05:36 WBC (4.8-10.8) K/uL RBC (4.7-6.1) M/uL Hgb (14.0-18.0) g/dL Hct (42-52) % MCV (80-100) fL MCH (25-34) pg MCHC (32-36) g/dL RDW Std Deviation (36.4-46.3) fL RDW Coeff of Tay (11.5-14.5) % Plt Count (130-400) K/uL MPV (7.4-10.4) fL Immature Gran % (Auto) % Neut % (Auto) % Lymph % (Auto) % [place] % (Auto) % Eos % (Auto) % Baso % (Auto) % Immature Gran # (Auto) (0.00-0.02) K/uL Neut # (Auto) (1.4-6.5) K/uL Lymph # (Auto) (1.2-3.4) K/uL [place] # (Auto) (0.11-0.59) K/uL Eos # (Auto) (0-0.5) K/uL Baso # (Auto) (0-0.2) K/uL D-Dimer (0-500) ug/L FEU Sodium (136-145) mmol/L Potassium (3.5-5.1) mmol/L Chloride (98-107) mmol/L Carbon Dioxide (21-32) mmol/L Anion Gap (3-11) BUN (7-18) mg/dl Creatinine (0.6-1.4) mg/dl Est Cr Clr Drug Dosing ml/min Est GFR ( Amer) Est GFR (Non-Af Amer) BUN/Creatinine Ratio (10-20) Glucose (70-99) mg/dl Calcium (8.5-10.1) mg/dl Total Bilirubin (0.2-1) mg/dl AST (15-37) U/L ALT (12-78) U/L Alkaline Phosphatase (45-117) U/L Troponin I (0-0.045) ng/ml Total Protein (6.4-8.2) gm/dl Albumin (3.4-5.0) gm/dl Globulin (2.5-4.0) gm/dl Albumin/Globulin Ratio (0.9-2) Lipase (73-393) U/L Influenza Type A Ag Neg for Influ A (Neg) Influenza Type B Ag Neg for Influ B (Neg) Imaging Data Attestation: I personally reviewed and interpreted this imaging study as follows: My Impression: Radiology results as stated below per my review and the radiologist's interpretation: Portable AP Upright 1 View No focal infiltrate No pneumothorax ECG Data Attestation: I personally reviewed and interpreted this ECG as follows: Indication: + chest pain Rate (beats per minute): 62 Rhythm: + sinus rhythm ECG Intervals/blocks: + Normal QT-c ECG Findings: + Other (Poor baseline; ); no PVCs Comparison ECG Date: from (03/22/18) Change: the following changes noted (PVCs are new) Blood Pressure Blood Pressure Findings: Normal blood pressure MDM Narrative Patient is a 78-year-old male who presents the ER for precordial chest pain associated with shortness of breath, yellow productive cough. The productive cough and shortness of breath has been getting worse over the past 7 days. Rec ent admission was reviewed following which patient had a respiratory arrest and a cardiac cath with 40% stenosis. EF was 50 to 55% at that time. IV was established blood work was obtained and shows mild leukocytosis no significant anemia. D-dimer was negative. BMP along with LFTs troponin and lipase was unremarkable. Influenza was negative. Chest x-ray without any focal infiltrate. Patient was given aspirin nitro and had resolution of his chest pain. With the wheezing he was given neb treatments to open up his lungs along with steroids and he was also given IV Levaquin. Patient family were updated at bedside. Discussed with the hospitalist for observation. Favor that this is unlikely ACS unless he embolized a plaque with the recent catheterization which showed only 40% lesions. Do favor that this predominantly respiratory in nature as last time. Impression & Plan Chest pain, Bronchitis, SOB (shortness of breath) Discharge Plan Visit Data Chief Complaint: Chest Pain Stated Complaint: CHEST PAIN ED Provider: Marco Decker Discharge Problem: Chest pain, Bronchitis, SOB (shortness of breath) Patient Disposition: Being Evaluated by Hospitalist Forms Stand Alone Forms: Call Back Authorization, [facility] Prescriptions Prescriptions: No Action clopidogrel [Plavix] 75 mg Tablet 75 mg PO DAILY RF: 0 furosemide [Lasix] 20 mg Tablet 20 mg PO DAILY RF: 0 losartan 100 mg Tablet 100 mg PO DAILY RF: 0 amlodipine 10 mg Tablet 10 mg PO DAILY RF: 0 albuterol sulfate 90 mcg/actuation Hfa Aerosol Inhaler 2 puff INHALATION Q4H PRN (Reason: Wheezing) RF: 0 atorvastatin 40 mg Tablet 40 mg PO QAM Qty: 30 RF: 0 fluticasone propionate 50 mcg/actuation [place],Suspension 2 spry NA HS Qty: 1 RF: 0 sodium chloride 0.65 % aerosol,spray 2 sprays intranasal Q6 PRN (Reason: nasal congestion) Qty: 30 RF: 0 carvedilol 25 mg Tablet 25 mg PO BID RF: 0 pantoprazole 20 mg Tablet,Delayed Release (Dr/Ec) 20 mg PO DAILY RF: 0 Symbicort 80-4.5 mcg/actuation Hfa Aerosol Inhaler 2 puff INHALATION BID RF: 0 terazosin 2 mg Capsule 2 mg PO DAILY RF: 0 Referrals Referrals: Richard Domínguez MD [Primary Care Provider] - Discharge Problem: Chest pain Qualifiers: Chest pain type: unspecified Qualified Code(s): R07.9 - Chest pain, unspecified The scribe's documentation has been prepared under my direction and personally reviewed by me in its entirety. I confirm that the note above accurately reflects all work, treatment, procedures, and medical decision making performed by me.
[2019-04-16] MEDS ORDERED: SODIUM CHLORIDE 0.65% NA SOLN 45 ML (OCEAN) PRN (07:54)
[2019-04-16] MEDS ORDERED: ALBUTEROL HFA 8 GM INHALER INH PRN (07:54)
[2019-04-16] MEDS ORDERED: POLYETHYLENE (MIRALAX) 17 GM PACK PO PRN (07:54)
[2019-04-16] MEDS ORDERED: XOPENEX/ATROVENT 1.25mg/0.5MG NEB COMBO NEB SCH (07:54)
[2019-04-16] MEDS ORDERED: XOPENEX/ATROVENT 1.25mg/0.5MG NEB COMBO NEB PRN (07:54)
[2019-04-16] MEDS ORDERED: IPRATROPIUM BROMIDE NEB SOLN 0.02% 2.5 ML VIAL INH PRN (07:54)
[2019-04-16] MEDS ORDERED: NITROGLYCERIN SL 0.4 MG/TAB TAB SL PRN (07:54)
[2019-04-16] MEDS ORDERED: ACETAMINOPHEN 325 MG TAB PO PRN (07:54)
[2019-04-16] MEDS ORDERED: ONDANSETRON INJ 2 MG/ML 2 ML VIAL IV PRN (07:54)
[2019-04-16] MEDS ORDERED: LEVALBUTEROL 1.25MG/0.5ML NEB INH PRN (07:54)
[2019-04-16] MEDS ORDERED: TERAZOSIN HCL 1 MG CAP PO SCH (09:00)
[2019-04-16] MEDS: carvediloL 25 MG TAB PO SCH ×3 (09:58→19:26)
[2019-04-16] MEDS: AMLODIPINE BESYLATE 5 MG TAB PO SCH (09:59)
[2019-04-16] MEDS: FUROSEMIDE 20 MG TAB PO SCH (09:59)
[2019-04-16] MEDS: ATORVASTATIN 40 MG TAB PO SCH (09:59)
[2019-04-16] MEDS: CLOPIDOGREL BISULFATE 75 MG TAB PO SCH (09:59)
[2019-04-16] MEDS: PANTOprazole 40 MG TAB PO SCH (10:00)
[2019-04-16] MEDS: TERAZOSIN HCL 1 MG CAP PO SCH (10:00)
[2019-04-16] MEDS: LOSARTAN POTASSIUM 50 MG TAB PO SCH (10:00)
[2019-04-16] MEDS: BUDESONIDE/FORMOTEROL FUMARATE 80/4.5 60 PUFFS/INHALER INH SCH ×2 (10:01→20:01)
[2019-04-16] MEDS: methylPREDNISolone 40 MG in SYRINGE 0 ML IV SCH ×2 (10:01→18:31)
[2019-04-16] MEDS ORDERED: LEVOFLOXACIN CONSULT ACTIVE PRN (10:13)
--- NOTE | 2019-04-16 11:15 | History and Physical Report ---
DATE OF ADMISSION: 04/16/2019 CHIEF COMPLAINT: Chest pain. 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 The patient says he woke up around 1:00 a.m. with his retrosternal chest discomfort, moderate in severity, also some shortness of breath and no radiation. No nausea, no sweating, no dizziness. In the ER, the nitro almost relieved his pain, but he was wheezing and was given steroid and breathing treatments currently. Currently resting comfortably and hemodynamically stable. Denies any headache, is blind in right eye. No earaches. Has some runny nose for few weeks, has cough with greenish yellow phlegm for few weeks now. No sore throat, no difficulty swallowing. Sleeping okay. No paroxysmal nocturnal dyspnea. No fever, no chills, no nausea, no abdominal pain. Normal bowel and bladder movements. No hematuria or burning micturition. No black stools or blood in the stools. No swelling in the legs. He says he is climbing steps and ambulating without any difficulty. The patient was admitted on 03/10/2019 with episode of shortness of breath and respiratory arrest at that time. At that time he woke up with shortness of breath and he went to the por for air and passed out. He was wheezing on exam at that time and was seen by Pulmonary and Cardiology. He had a short course of steroids at that time and did fine and because of mild elevation of troponin, he was status post cardiac cath which showed 40% circumflex lesion and 30% proximal LAD lesion. Medical management was recommended. He is already on beta-mendoza, statin and Plavix. His blood pressure medication Hytrin was increased. He was also status post video swallow at that time which showed no aspiration. Question of vocal cord dysfunction and advised to follow with ENT . Seen by ENT as outpatient and workup was negative. Also seen by Pulmonary as outpatient and PFTs were done and there are question of mild intermittent asthma and he was advised to continue Symbicort and albuterol p.r.n., Apparently was doing okay until this episode happened. ALLERGIES: No known drug allergies. PAST MEDICAL HISTORY: As mentioned above. PAST SURGICAL HISTORY: Cardiac cath, carpal tunnel surgery, colonoscopy, lumbar spinal shots, lens extraction, phacofragmentation, right carotid endarterectomy. MEDICATIONS: The patient is currently on albuterol 2 puffs inhalation q. 4 hours p.r.n., amlodipine 10 mg p.o. daily, atorvastatin 40 mg p.o. a.m., Symbicort 2 puffs inhalation b.i.d., Coreg 25 mg p.o. b.i.d., Plavix 75 mg p.o. daily, fluticasone propionate 2 sprays and this was at bedtime, Lasix 20 mg p.o. daily, losartan 100 mg p.o. daily, Protonix 20 mg p.o. daily, sodium chloride nasal spray p.r.n., terazosin 2 mg p.o. daily. FAMILY HISTORY: Significant for brother had liver cancer, mother had leukemia, sister with cancer, father has hypertension, son has hypertension, daughter is bipolar. SOCIAL HISTORY: Former smoker, smoked 1.5 packs a day for 20 years, quit smoking about 20 years ago. No alcohol use, no illicit drug use. and lives with his . REVIEW OF SYMPTOMS: As per HPI. PHYSICAL EXAMINATION: GENERAL: The patient is alert and oriented, not in acute distress. VITAL SIGNS: Temperature 36.7, pulse 57, respiratory rate 20, blood pressure 122/67, oxygen 97% room air. HEENT: No pallor, no icterus. Right pupil not reactive to light. NECK: No JVD, no neck masses, no carotid bruits. CARDIOVASCULAR: S1, S2 heard. Regular rate and rhythm. No murmur, no gallop. RESPIRATORY SYSTEM: Normal AP diameter. No accessory muscle use. Bilateral wheezing heard, no crackles. ABDOMEN: Soft, bowel sounds present, nontender. No distention. CENTRAL NERVOUS SYSTEM: Alert and oriented. Nonfocal. EXTREMITIES: No edema, no erythema. LABORATORY DATA: WBC 9.1, hemoglobin 15, hematocrit 44.4, platelets 162. D-dimer 450. Sodium 141, potassium 3.9, chloride 109, bicarb 28, BUN 16, creatinine 1.25, serum glucose 112, calcium 9.5. Total bilirubin 0.8, AST 11, ALT 20, alkaline phosphatase 131. Troponin I less than 0.015. Lipase 106. Influenza A and B negative.D-dimer 450. Chest x-ray: No acute findings in the chest. EKG: Sinus rhythm with PACs with aberrant conduction at rate of 62. ASSESSMENT AND PLAN: A 78-year-old male presents with chest pain. 1. Chest pain, improved with nitro. EKG, no acute ST changes seen. Troponin negative. Currently hemodynamically stable. Recent cardiac cath in March showed 40% circumflex lesion and 30% proximal LAD lesion, on Coreg, Plavix and high-dose statin. We will continue the same and follow the serial cardiac enzymes and consult Cardiology. We will keep n.p.o. for now and await Cardiology evaluation for further recommendations. Monitor on the tele floor. 2. Asthma exacerbation. The patient on last admissions there were wheezing and had PFTs as outpatient, Pulmonary thought might have mild intermittent asthma. He is on Symbicort and albuterol prn. Currently is wheezing. He was having ongoing cough for few weeks with greenish yellow phlegm. Denies any fever, chills. Chest x-ray is unremarkable. We will continue with IV Solu- Medrol 40 t.i.d., nebs around the clock and p.r.n. ER started on IV Levaquin, which we will continue for now. We will get sputum cultures. If any concerns, we will consult Pulmonary. 3. Hypertension. Continue losartan, amlodipine and Coreg and terazosin. Monitor blood pressure. 4. Chronic kidney disease stage III. Creatinine 1.25 around baseline. We will follow the labs. 5. Possible sleep apnea, noncompliant with CPAP. Needs counseling. 6. History of peripheral vascular disease, status post right carotid endarterectomy on Plavix and statin. 7. GERD, on PPI. 8. DVT prophylaxis. SCDs for now. 9. Disposition. Observation in tele floor. Expect discharge home and follow with family doctor. Level 1 full code. MTDD
[2019-04-16] MEDS: IPRATROPIUM BROMIDE NEB SOLN 0.02% 2.5 ML VIAL INH SCH ×2 (13:11→19:26)
[2019-04-16] MEDS: LEVALBUTEROL 1.25MG/0.5ML NEB INH SCH ×2 (13:11→19:26)
--- NOTE | 2019-04-16 18:01 | Cardiology Consultation ---
Date of Consultation April 16, 2019 Assessment & Plan (1) Chest pain: Do not suspect acute coronary syndrome or angina pectoris given recent documentation of nonobstructive coronary atherosclerosis only. EKGs reflect no acute changes and initial troponins are negative x2. Patient has had difficulties with hypertensive urgency and suspect is contributing to complaints higher during respiratory exacerbations. Echocardiogram will be ordered to reassess LV wall motion abnormalities prev iously identified Would continue current medications and follow blood pressure closely will follow with patient in house (2) Hypertension: (3) Carotid artery occlusion: (4) Sleep apnea: (5) SOB (shortness of breath): History of Present Illness Reason for Consultation: Chest pain Requesting Physician: Dr Keen Attending Physician: Kee Thomas MD History of Present Illness Patient is a 78-year-old male with ongoing issues which include 1. Chronic obstructive lung disease with recent hospitalization with respiratory failure 2. Hypertension 3. Obstructive sleep apnea 4. Mild to moderate coronary atherosclerosis by cardiac catheterization March 2019 no obstruction 5. Hyperlipidemia 6. Chronic renal insufficiency stage III 7. Gastroesophageal reflux disease Patient presents having developed worsening shortness of breath and chest pain last evening presented to the emergency room where EKG revealed no acute changes he was given sublingual nitroglycerin as well as bronchodilators with improvement in symptoms. He is currently without complaints. He was recently hospitalized 03/10/2019 with acute respiratory failure and associated catecholamine mediated troponin rise and echocardiographic abnormalities. Diagnostic cardiac catheterization revealed mild to moderate atherosclerosis but no obstructive disease. Patient's had difficulties with marked hypertension now better controlled since once again being elevated on admission Allergies Allergy/AdvReac Type Severity Reaction Status Date / Time No Known Allergies Allergy Unverified 03/30/19 09:44 Home Medications Home Medications Medication Instructions Recorded Confirmed Type albuterol sulfate 2 puff INHALATION Q4H PRN 03/10/19 04/16/19 History amlodipine 10 mg PO DAILY 03/10/19 04/16/19 History clopidogrel [Plavix] 75 mg PO DAILY 03/10/19 04/16/19 History furosemide [Lasix] 20 mg PO DAILY 03/10/19 04/16/19 History losartan 100 mg PO DAILY 03/10/19 04/16/19 History atorvastatin 40 mg PO QAM #30 tab 03/12/19 04/16/19 Rx fluticasone propionate 2 spry NA HS #1 g 03/12/19 04/16/19 Rx sodium chloride 2 sprays INTRANASAL Q6 PRN #30 ml 03/12/19 04/16/19 Rx budesonide-formoterol [Symbicort] 2 puff INHALATION BID 04/16/19 04/16/19 History carvedilol 25 mg PO BID 04/16/19 04/16/19 History pantoprazole 20 mg PO DAILY 04/16/19 04/16/19 History terazosin 4 mg PO DAILY 04/16/19 04/16/19 History Patient History Medical History Carotid artery stenosis COPD (chronic obstructive pulmonary disease) GERD (gastroesophageal reflux disease) Hypertension Mild intermittent asthma VALARIE (obstructive sleep apnea) Wheezing Surgical History Traumatic enucleation of right eye Family History Other Medical history non-contributory Social History Preferred Language: Ghanaian Communication Ability: Effective Supervisor Customer Complaint Service Required: No Beliefs That Will Affect Care: None marital status: marital status details: 51 years Current Living Situation: Spouse current occupational status: retired Other Information That Helps Us Care for You: No Feels Safe at Home: Yes Smoking Status: Former smoker Do You Dip or Chew Tobacco: No ; Second Hand Exposure: Yes (As a child. Father when patient was 15 years old) ; Hx Alcohol Use: No Hx Substance Use: No during the past year weight has: remained stable Physical Exam Constitutional: WD/WN, vitals as above no acute distress Eyes: PERRL, conjunctivae normal, anicteric sclerae ENMT: external ear and nose normal, oropharynx normal Neck: trachea midline, no thyromegaly + thick neck Respiratory: Auscultation: + diminished lung sounds and + crackles (Right base) Cardiovascular: Rate/Rhythm: regular rate and regular rhythm Heart Sounds: normal S1 and normal S2; no gallop and no murmur Palpation: normal PMI Vessels: normal carotid upstroke and radial pulses present; no JVD and no carotid bruit Extremities: no edema Chest (Breasts): Additional Comments: Barrel chested Gastrointestinal (Abdomen): normal bowel sounds, soft, nontender, no hepatosplenomegaly Musculoskeletal: no cyanosis or clubbing, extremities motor strength 5/5 Skin: no rashes, warm and dry Neurologic: PERRL, EOMI, accommodation nl, no face palsy, no dysarthria Psychiatric: A+Ox3, euthymic affect Results & Data Vital Signs (Past 12 Hours) Vital Signs Temp Pulse Pulse Resp BP BP BP 04/16/19 15:14 37.0 C 60 20 138/69 04/16/19 13:13 65 16 04/16/19 11:16 36.8 C 61 18 158/81 H 04/16/19 09:02 58 L 120/63 04/16/19 08:56 59 L 20 159/69 H 04/16/19 08:02 36.7 C 55 L 22 175/81 H 04/16/19 07:54 04/16/19 07:01 53 L 16 176/79 H 04/16/19 06:32 57 L 20 04/16/19 06:31 57 L 14 04/16/19 06:30 54 L 15 122/67 Pulse Ox Pulse Ox 04/16/19 15:14 90 04/16/19 13:13 95 04/16/19 11:16 92 04/16/19 09:02 04/16/19 08:56 04/16/19 08:02 98 04/16/19 07:54 98 04/16/19 07:01 98 04/16/19 06:32 97 04/16/19 06:31 100 04/16/19 06:30 100 Laboratory Results Laboratory Results - last 24 hr 04/16/19 04/16/19 04/16/19 05:34 05:34 05:34 WBC 9.12 RBC 4.78 Hgb 15.0 Hct 44.4 MCV 92.9 MCH 31.4 MCHC 33.8 RDW Std Deviation 45.7 RDW Coeff of Tay 13.4 Plt Count 162 MPV 12.0 H Immature Gran % (Auto) 0.3 Neut % (Auto) 73.2 Lymph % (Auto) 14.7 [place] % (Auto) 8.8 Eos % (Auto) 2.7 Baso % (Auto) 0.3 Immature Gran # (Auto) 0.03 H Neut # (Auto) 6.67 H Lymph # (Auto) 1.34 [place] # (Auto) 0.80 H Eos # (Auto) 0.25 Baso # (Auto) 0.03 D-Dimer 450 Sodium 141 Potassium 3.9 Chloride 109 H Carbon Dioxide 28 Anion Gap 4.0 BUN 16 Creatinine 1.25 Est Cr Clr Drug Dosing 47.4 Est GFR ( Amer) 64.4 Est GFR (Non-Af Amer) 55.6 BUN/Creatinine Ratio 12.8 Glucose 112 H Calcium 9.5 Total Bilirubin 0.8 AST 11 L ALT 20 Alkaline Phosphatase 131 H Troponin I < 0.015 Total Protein 7.7 Albumin 4.0 Globulin 3.7 Albumin/Globulin Ratio 1.1 Lipase 106 Influenza Type A Ag Influenza Type B Ag 04/16/19 04/16/19 04/16/19 05:36 08:42 13:50 WBC RBC Hgb Hct MCV MCH MCHC RDW Std Deviation RDW Coeff of Tay Plt Count MPV Immature Gran % (Auto) Neut % (Auto) Lymph % (Auto) [place] % (Auto) Eos % (Auto) Baso % (Auto) Immature Gran # (Auto) Neut # (Auto) Lymph # (Auto) [place] # (Auto) Eos # (Auto) Baso # (Auto) D-Dimer Sodium Potassium Chloride Carbon Dioxide Anion Gap BUN Creatinine Est Cr Clr Drug Dosing Est GFR ( Amer) Est GFR (Non-Af Amer) BUN/Creatinine Ratio Glucose Calcium Total Bilirubin AST ALT Alkaline Phosphatase Troponin I < 0.015 < 0.015 Total Protein Albumin Globulin Albumin/Globulin Ratio Lipase Influenza Type A Ag Neg for Influ A Influenza Type B Ag Neg for Influ B (1) Chest pain Chest pain type: unspecified Qualified Code(s): R07.9 - Chest pain, unspecified
--- NOTE | 2019-04-16 19:24 | Communication Note ---
Date of Service: April 16, 2019 Evening recheck. Admitted this morning with chest pain. Troponins negative. No further chest pain. Seen by Cardiology; echo pending. Will order dinner tray, then NPO after midnight in case there is need for invasive evaluation tomorrow.
[2019-04-16] MEDS ORDERED: FLUTICASONE PROPIONATE NA SPR 16 GM BTL SCH (21:00)
[2019-04-17] MEDS: methylPREDNISolone 40 MG in SYRINGE 0 ML IV SCH ×2 (00:35→07:58)
[2019-04-17] MEDS: LEVALBUTEROL 1.25MG/0.5ML NEB INH SCH ×2 (01:13→07:01)
[2019-04-17] MEDS: IPRATROPIUM BROMIDE NEB SOLN 0.02% 2.5 ML VIAL INH SCH ×2 (01:13→07:02)
[2019-04-17 05:40] LABS: Basophils # (auto) 0.01 K/uL (0-0.2); Basophils % (auto) 0.1 %; Hematocrit (blood only) 41.1 % (42-52); Hemoglobin 14.1 g/dL (14.0-18.0); Immature Granulocytes # (auto) 0.03 K/uL (0.00-0.02); Immature Granulocytes % (auto) 0.3 %; Lymphocytes # (auto) 0.62 K/uL (1.2-3.4); Lymphocytes % (auto) 5.4 %; Mean Corpuscular Hemoglobin 31.4 pg (25-34); Mean Corpuscular Hgb Conc 34.3 g/dL (32-36); Mean Corpuscular Volume 91.5 fL (80-100); Mean Platelet Volume 11.9 fL (7.4-10.4); Monocytes # (auto) 0.35 K/uL (0.11-0.59); Monocytes % (auto) 3.1 %; Neutrophils # (auto) 10.43 K/uL (1.4-6.5); Neutrophils % (auto) 91.1 %; Platelet Count 165 K/uL (130-400); RDW Coefficient of Variation 13.3 % (11.5-14.5); RDW Standard Deviation 44.4 fL (36.4-46.3); Red Blood Count 4.49 M/uL (4.7-6.1); White Blood Count 11.44 K/uL (4.8-10.8)
[2019-04-17 06:08] LABS: BUN Creatinine Ratio 13.5 (10-20); Calcium 9.1 mg/dl (8.5-10.1); Creatinine Clr Calc Pharmacy 47.3 ml/min; Est GFR (African American) 64.4; Est GFR (Non-African American) 55.6; Magnesium 2.3 mg/dl (1.8-2.4); Potassium 3.8 mmol/L (3.5-5.1)
[2019-04-17] MEDS: CLOPIDOGREL BISULFATE 75 MG TAB PO SCH (07:58)
[2019-04-17] MEDS: LOSARTAN POTASSIUM 50 MG TAB PO SCH (07:58)
[2019-04-17] MEDS: BUDESONIDE/FORMOTEROL FUMARATE 80/4.5 60 PUFFS/INHALER INH SCH (07:58)
[2019-04-17] MEDS: carvediloL 25 MG TAB PO SCH (07:58)
[2019-04-17] MEDS: ATORVASTATIN 40 MG TAB PO SCH (07:58)
[2019-04-17] MEDS: PANTOprazole 40 MG TAB PO SCH (07:59)
[2019-04-17] MEDS: AMLODIPINE BESYLATE 5 MG TAB PO SCH (07:59)
[2019-04-17] MEDS: TERAZOSIN HCL 1 MG CAP PO SCH (07:59)
[2019-04-17] MEDS: FUROSEMIDE 20 MG TAB PO SCH (07:59)
--- NOTE | 2019-04-17 15:54 | Hospitalist Progress Note ---
Date of Service April 17, 2019 Assessment & Plan (1) Chest pain: Presented with chest pain + SOB that started around 1:00 a.m. while lying in bed. EKG showed NSR with PVC's, no acute changes. Serial troponins negative. No infiltrates or CHF on chest x-ray. Pulmonary embolism unlikely with normal D-dimer. Suspect GE reflux with aspiration as discussed below. (2) Dyspnea: As noted above. (3) Coronary artery disease: Presented with CP & SOB in March. Troponins elevated. Echo 03/10/19 showed mild concentric LVH with segmental wall abnormalities, overall LVEF 55-60%. Cardiac cath showed nonocclusive disease left circ. [place] to have catecholamine associated cardiomyopathy + hypoxia contributing to cardiac issues. Continue clopidogrel, carvedilol, amlodipine, losartan, statin. (4) Congestive heart failure: Admitted in Mar with CP + SOB. Chest x-ray showed pulmonary vascular congestion. Echo 03/10/19 showed mild concentric LVH with segmental wall abnormalities, overall LVEF 55-60%. Discharged on furosemide. No clinical or radiographic evidence of CHF currently. Repeat echo today improved- showed normal LV wall motion and systolic function, LVEF 60-65%. Continue furosemide. (5) Hypertension: Episodic elevations of BP. Multiple recent Rx's for terazosin; pt not sure how he is taking it. Discharge on: carvedilol 25 mg BID amlodipine 10 mg daily losartan 100 mg daily terazosin 2 mg hs Follow & titrate Rx. (6) Cerebrovascular disease: Continue clopidogrel and statin. Reminded not to use omeprazole with clopidogrel. (7) Mild intermittent asthma: GERD with aspiration may be contributing issue. Continue Symbicort + albuterol. Discharge on prednisone for a few more days. (8) Gastroesophageal reflux disease: History of GERD. History / symptoms of current admission suggest possible GE reflux with aspiration. Continue pantoprazole. Add famotidine HS. Given info on GERD management. (9) DVT prophylaxis: SCD's. Ambulating. (10) Discharge planning issues: Discharged to home. Family Medicine follow-up with Dr. Domínguez. Cardiology follow-up with Dr. Rocha. Followed by [facility]- nurse given update. Subjective Feels well. No further chest pain or SOB. Ambulating. Ready to go home. Physical Exam Constitutional: no acute distress Respiratory: no respiratory distress Auscultation: + wheezes (diffuse, mild) Cardiovascular: Rate/Rhythm: regular rate and regular rhythm Heart Sounds: no gallop, no murmur and no cardiac rub Vessels: no JVD Extremities: no calf tenderness and no edema Gastrointestinal (Abdomen): normal bowel sounds, soft, nontender, no hepatosplenomegaly Skin: no rashes, warm and dry Psychiatric: Orientation: alert and oriented x 3 Results & Data Vital Signs (Past 12 Hours) Vital Signs Temp Pulse Resp BP BP Pulse Ox 04/17/19 15:32 36.5 C 66 18 123/61 90 04/17/19 11:42 36.5 C 65 18 118/65 91 04/17/19 07:49 36.7 C 72 18 145/71 H 92 04/17/19 07:02 72 16 94 04/17/19 04:46 36.7 C 71 18 146/72 H 94 (1) Mild intermittent asthma Asthma complication type: uncomplicated Qualified Code(s): J45.20 - Mild intermittent asthma, uncomplicated (2) Congestive heart failure Heart failure chronicity: acute Heart failure type: systolic Qualified Code(s): I50.21 - Acute systolic (congestive) heart failure
--- NOTE | 2019-04-17 17:33 | Cardiology Progress Note ---
Date of Service April 17, 2019 Assessment & Plan (1) Chest pain: Do not suspect acute coronary syndrome or angina pectoris given recent documentation of nonobstructive coronary atherosclerosis only. EKGs reflect no acute changes and initial troponins are negative x2. Patient has had dif ficulties with hypertensive urgency and suspect is contributing to complaints higher during respiratory exacerbations. Patient improved with treatment of underlying pulmonary issues. Echocardiogram demonstrates resolved prior wall motion abnormality. Blood pressure is controlled today Patient has planned follow-up as an outpatient (2) Hypertension: (3) Carotid artery occlusion: (4) Sleep apnea: (5) SOB (shortness of breath): Subjective Patient seen and examined chart medications telemetry reviewed. Feels well since hospital presentation no further chest pains or discomfort. Ambulatory in room pulmonary status is improving. No evidence of cardiac involvement by EKG and enzymes Echocardiogram reviewed today reveals resolve of prior wall motion abnormalities and normal to hyperdynamic LV function Physical Exam Constitutional: WD/WN, vitals as above no acute distress Eyes: PERRL, conjunctivae normal, anicteric sclerae ENMT: external ear and nose normal, oropharynx normal Neck: trachea midline, no thyromegaly + thick neck Respiratory: Auscultation: + diminished lung sounds and + crackles (Right base) Cardiovascular: Rate/Rhythm: regular rate and regular rhythm Heart Sounds: normal S1 and normal S2; no gallop and no murmur Palpation: normal PMI Vessels: normal carotid upstroke and radial pulses present; no JVD and no carotid bruit Extremities: no edema Gastrointestinal (Abdomen): normal bowel sounds, soft, nontender, no hepatospl enomegaly Musculoskeletal: no cyanosis or clubbing, extremities motor strength 5/5 Skin: no rashes, warm and dry Neurologic: PERRL, EOMI, accommodation nl, no face palsy, no dysarthria Psychiatric: A+Ox3, euthymic affect Results & Data Vital Signs (Past 12 Hours) Vital Signs Temp Pulse Resp BP BP Pulse Ox 04/17/19 16:37 36.5 C 66 18 118/65 123/61 90 04/17/19 15:32 36.5 C 66 18 123/61 90 04/17/19 11:42 36.5 C 65 18 118/65 91 04/17/19 07:49 36.7 C 72 18 145/71 H 92 04/17/19 07:02 72 16 94 (1) Chest pain Chest pain type: unspecified Qualified Code(s): R07.9 - Chest pain, unspecified
[2019-04-18] MEDS ORDERED: LEVOFLOXACIN/D5W 750 MG/150 ML BAG IV SCH (06:00)
--- NOTE | 2019-04-18 09:20 | Discharge Summary ---
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 The patient says he woke up around 1:00 a.m. with his retrosternal chest discomfort, moderate in severity, also some shortness of breath and no radiation. No nausea, no sweating, no dizziness. In the ER, the nitro almost relieved his pain, but he was wheezing and was given steroid and breathing treatments currently. Currently resting comfortably and hemodynamically stable. Denies any headache, is blind in right eye. No earaches. Has some runny nose for few weeks, has cough with greenish yellow phlegm for few weeks now. No sore throat, no difficulty swallowing. Sleeping okay. No paroxysmal nocturnal dyspnea. No fever, no chills, no nausea, no abdominal pain. Normal bowel and bladder movements. No hematuria or burning micturition. No black stools or blood in the stools. No swelling in the legs. He says he is climbing steps and ambulating without any difficulty. The patient was admitted on 03/10/2019 with episode of shortness of breath and respiratory arrest at that time. At that time he woke up with shortness of breath and he went to the por for air and passed out. He was wheezing on exam at that time and was seen by Pulmonary and Cardiology. He had a short course of steroids at that time and did fine and because of mild elevation of troponin, he was status post cardiac cath which showed 40% circumflex lesion and 30% proximal LAD lesion. Medical management was recommended. He is already on beta-mendoza, statin and Plavix. His blood pressure medication Hytrin was increased. He was also status post video swallow at that time which showed no aspiration. Question of vocal cord dysfunction and advised to follow with ENT . Seen by ENT as outpatient and workup was negative. Also seen by Pulmonary as outpatient and PFTs were done and there are question of mild intermittent asthma and he was advised to continue Symbicort and albuterol p.r.n., Apparently was doing okay until this episode happened. Principal Diagnosis chest pain & dyspnea [place] and PE ruled out suspected GE reflux with aspiration Discharge Data Allergies Allergy/AdvReac Type Severity Reaction Status Date / Time No Known Allergies Allergy Unverified 03/30/19 09:44 Consultations 04/16/19 07:54 Consult Case Management - Discharge Planning Routine 04/16/19 08:00 Consult Cardiology Routine Hospital Course (1) Chest pain: Presented with chest pain + SOB that started around 1:00 a.m. while lying in bed. EKG showed NSR with PVC's, no acute changes. Serial troponins negative. No infiltrates or CHF on chest x-ray. Pulmonary embolism unlikely with normal D-dimer. Suspect GE reflux with aspiration as discussed below. (2) Dyspnea: As noted above. (3) Coronary artery disease: Presented with CP & SOB in March. Troponins elevated. Echo 03/10/19 showed mild concentric LVH with segmental wall abnormalities, overall LVEF 55-60%. Cardiac cath showed nonocclusive disease left circ. [place] to have catecholamine associated cardiomyopathy + hypoxia contributing to cardiac issues. Continue clopidogrel, carvedilol, amlodipine, losartan, statin. (4) Congestive heart failure: Admitted in Mar with CP + SOB. Chest x-ray showed pulmonary vascular congestion. Echo 03/10/19 showed mild concentric LVH with segmental wall abnormalities, overall LVEF 55-60%. Discharged on furosemide. No clinical or radiographic evidence of CHF currently. Repeat echo today improved- showed normal LV wall motion and systolic function, LVEF 60-65%. Continue furosemide. (5) Hypertension: Episodic elevations of BP. Multiple recent Rx's for terazosin; pt not sure how he is taking it. Discharge on: carvedilol 25 mg BID amlodipine 10 mg daily losartan 100 mg daily terazosin 2 mg hs Follow & titrate Rx. (6) Cerebrovascular disease: Continue clopidogrel and statin. Reminded not to use omeprazole with clopidogrel. (7) Mild intermittent asthma: GERD with aspiration may be contributing issue. Continue Symbicort + albuterol. Discharge on prednisone for a few more days. (8) Gastroesophageal reflux disease: History of GERD. History / symptoms of current admission suggest possible GE reflux with aspiration. Continue pantoprazole. Add famotidine HS. Given info on GERD management. (9) DVT prophylaxis: SCD's. Ambulating. (10) Discharge planning issues: Discharged to home. Family Medicine follow-up with Dr. Domínguez. Cardiology follow-up with Dr. Rocha. Followed by [facility]- nurse given update. Total Time Total Time Spent Total Time Spent (In Minutes): 30 Discharge Plan Discharge Items Patient Disposition: Home - Self-Care Reason For Visit: chest pain and trouble breathing Discharge Diagnosis: no sign of heart attack no sign of pneumonia suspect that you had acid reflux with stomach acid going down your windpipe Condition on Discharge: Good Activity: Resume your previous activity Non-emergency contact: Primary Care Provider, Hospitalist and Tape Weaver Call non-emergency contact if: you have any medication questions, your symptoms worsen and your temperature is above 101 Follow-up/Referrals: Armando Rocha MD [Physician] - (04/27/2019 10:00 AM Armando Rocha MD ) Richard Doímnguez MD [Primary Care Provider] - (04/20/2019 11:20 AMProvider Richard Domínguez MD ) Diet: Heart Healthy Addtl Attending Provider Instructions: MEDICATION CHANGES: You have had different prescriptions for terazosin (Hytrin). Current instructions are 2 mg at bedtime. Omeprazole (Prilosec) is on your medication list from the office. You should not be taking it at this time- it can interfere with clopidogrel (Plavix). Start famotidine (Pepcid) 40 mg at bedtime for better control of acid reflux. SUMMARY OF TEST RESULTS: No sign of heart attack. No sign of pneumonia. Echocardiogram showed improvement since March. OTHER INSTRUCTIONS: Instructions for acid reflux: Take pantoprazole (Protonix) and famotidine (Pepcid) as instructed. Avoid over-eating. Avoid caffeine- especially later in the day or evening. Keep your head elevated when sleeping. Seek medical attention if you have: * temperature above 101 * chest pain or trouble breathing * abdominal pain, nausea, vomiting * diarrhea, dark stools or bloody stools * any unanswered questions or concerns Call 911 if symptoms are severe. Please take good care of yourself. Call if you have any questions or problems. You can reach a [facility] hospitalist on duty at [facility] 24 hours a day by calling [phone]. My cell # is [phone]. Pending Studies at Discharge: No Stand-Alone Forms: Call Back Authorization, [facility], Smoking Cessation Medications and DC Order Prescriptions: New famotidine 40 mg tablet 40 mg PO HS Qty: 30 RF: 5 prednisone 10 mg tablet 40 mg PO DAILY Qty: 12 RF: 0 Continued clopidogrel [Plavix] 75 mg Tablet 75 mg PO DAILY RF: 0 furosemide [Lasix] 20 mg Tablet 20 mg PO DAILY RF: 0 losartan 100 mg Tablet 100 mg PO DAILY RF: 0 amlodipine 10 mg Tablet 10 mg PO DAILY RF: 0 albuterol sulfate 90 mcg/actuation Hfa Aerosol Inhaler 2 puff INHALATION Q4H PRN (Reason: Wheezing) RF: 0 atorvastatin 40 mg Tablet 40 mg PO QAM Qty: 30 RF: 0 fluticasone propionate 50 mcg/actuation [place],Suspension 2 spry NA HS Qty: 1 RF: 0 sodium chloride 0.65 % aerosol,spray 2 sprays intranasal Q6 PRN (Reason: nasal congestion) Qty: 30 RF: 0 carvedilol 25 mg Tablet 25 mg PO BID RF: 0 pantoprazole 20 mg Tablet,Delayed Release (Dr/Ec) 20 mg PO DAILY RF: 0 Symbicort 80-4.5 mcg/actuation Hfa Aerosol Inhaler 2 puff INHALATION BID RF: 0 terazosin 2 mg Capsule 2 mg PO HS RF: 0 Discharge Orders: Discharge Order (Routine); Ordered 04/17/19 Ordered By: Kee Marinelli/Other Patient Handouts: GERD, GERD Lifestyle Changes Admission Data Admit Date/Time: 04/16/19 06:49 Attending Provider: Kee Thomas Admit Provider: Steve Keen Primary Care Provider: Richard Domínguez Other Providers: Armando Rocha Other Interventions: Discharge Summary Assessment (RN) Last Done: 04/17/19 16:37 DC Date/Time DO NOT enter until pt leaves facility: 04/17/19 17:15
== END 2019-04-17 17:15 | disposition home or self-care (01) ==
LOC: ED 05:15 → 2S 05:15

== ENCOUNTER 2019-11-14 15:01 | Inpatient (IN) ==
[2019-11-14] MEDS ORDERED: ACETAMINOPHEN 325 MG TAB PO STA (15:26)
[2019-11-14] MEDS ORDERED: SODIUM CHLORIDE 0.9% 1000ML 1,000 ML IV SCH (15:30)
[2019-11-14 16:13] LABS: Basophils # (auto) 0.01 K/uL (0-0.2); Basophils % (auto) 0.2 %; Hematocrit (blood only) 41.3 % (42-52); Hemoglobin 13.9 g/dL (14.0-18.0); Immature Granulocytes # (auto) 0.02 K/uL (0.00-0.02); Immature Granulocytes % (auto) 0.3 %; Lymphocytes # (auto) 0.33 K/uL (1.2-3.4); Mean Corpuscular Hemoglobin 30.4 pg (25-34); Mean Corpuscular Hgb Conc 33.7 g/dL (32-36); Mean Corpuscular Volume 90.4 fL (80-100); Mean Platelet Volume 11.7 fL (7.4-10.4); Monocytes # (auto) 0.46 K/uL (0.11-0.59); Neutrophils # (auto) 5.73 K/uL (1.4-6.5); Neutrophils % (auto) 87.5 %; Platelet Count 122 K/uL (130-400); RDW Coefficient of Variation 13.9 % (11.5-14.5); RDW Standard Deviation 46.2 fL (36.4-46.3); Red Blood Count 4.57 M/uL (4.7-6.1); White Blood Count 6.55 K/uL (4.8-10.8)
--- NOTE | 2019-11-14 16:13 | Emergency Department Note ---
History of Present Illness General Chief complaint: Shortness of Breath/Dyspnea Stated complaint: SOB, DIZZY, WEAKNESS Time Seen by Provider: 11/14/19 15:13 History of Present Illness Maximum Pain Intensity: 0 This is a 79-year-old male that presents to the emergency department via private vehicle with complaints of "shortness of breath, dizzy, weakness". The patient notes he developed a headache yesterday and decreased appetite. He does have a history of chronic shortness of breath but notes that this worsened. He denies any recent travel or exposure to known COVID-19 individuals. He also had an episode of diarrhea earlier. No pain at this current time. He denies any trauma, injury or chest pain. He was unaware that he had a fever until his arrival here. Home Medications Home Medications Medication Instructions Recorded Confirmed Type albuterol sulfate 2 puff INHALATION Q4H PRN 03/10/19 11/14/19 History amlodipine 10 mg PO DAILY 03/10/19 11/14/19 History clopidogrel [Plavix] 75 mg PO DAILY 03/10/19 11/14/19 History furosemide [Lasix] 20 mg PO DAILY 03/10/19 11/14/19 History losartan 100 mg PO DAILY 03/10/19 11/14/19 History atorvastatin 40 mg PO QAM #30 tab 03/12/19 11/14/19 Rx carvedilol 25 mg PO DAILY 04/16/19 11/14/19 History pantoprazole 20 mg PO DAILY 04/16/19 11/14/19 History terazosin 2 mg PO HS 04/16/19 11/14/19 History famotidine 40 mg PO HS #30 tab 04/17/19 11/14/19 Rx carvedilol 12.5 mg PO PM 11/14/19 11/14/19 History fluticasone propion-salmeterol 1 inh INHALATION BID 11/14/19 11/14/19 History [Jjx[facility]es [facility]] Allergies Allergy/AdvReac Type Severity Reaction Status Date / Time No Known Allergies Allergy Unverified 11/14/19 16:17 Past Med/Surg History Medical History Carotid artery stenosis Cerebrovascular disease (Chronic Unknown) COPD (chronic obstructive pulmonary disease) Coronary artery disease cath [facility] 03/11/19 nonocclusive 30-40% stenoses left circ GERD (gastroesophageal reflux disease) Hypertension Mild intermittent asthma VALARIE (obstructive sleep apnea) Surgical History Traumatic enucleation of right eye Family History Other Medical history non-contributory Social History Preferred Language: French Communication Ability: Effective 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 Beliefs That Will Affect Care: None marital status: marital status details: 51 years Current Living Situation: Spouse Current Living Situation Comment: Lives with spouse, does not need any assistance with ADL's current occupational status: retired Other Information That Helps Us Care for You: No Feels Safe at Home: Yes Safety Concerns: Feels Safe At This Time Smoking Status: Former smoker Tobacco Type: cigarettes ; Do You Dip or Chew Tobacco: No ; Second Hand Exposure: No ; Tobacco Cessation Education Requested by Patient: No Hx Alcohol Use: No Hx Substance Use: No during the past year weight has: remained stable Review of Systems A total of 10 systems reviewed and were otherwise negative Physical Exam Vital Signs Vital Signs - 24 hr 11/14/19 15:03 11/14/19 15:58 11/14/19 16:02 Temperature 38.3 C H Temperature Source Oral Pulse Rate 73 63 68 Pulse Rate [Right Finger] Pulse Rate from SpO2 Sensor 65 73 Pulse Rhythm Regular Pulse Strength Normal Respiratory Rate 20 24 21 Respiratory Effort / Characteristics Non-Labored Respiratory Depth Normal Respiratory Pattern Regular Blood Pressure 112/50 L Blood Pressure [Right Arm] Blood Pressure Mean 71 Blood Pressure Mean [Right Arm] Blood Pressure Position Sitting Pulse Oximetry 96 97 Oxygen Delivery Method Room Air Sepsis Recent Fever Within 48 Hours No Sepsis Action Taken by Nursing No Action Required 11/14/19 16:08 11/14/19 16:10 11/14/19 16:20 Temperature Temperature Source Pulse Rate 63 60 Pulse Rate [Right Finger] 63 Pulse Rate from SpO2 Sensor 63 60 Pulse Rhythm Pulse Strength Respiratory Rate 22 22 19 Respiratory Effort / Characteristics Respiratory Depth Respiratory Pattern Blood Pressure Blood Pressure [Right Arm] 112/50 L Blood Pressure Mean Blood Pressure Mean [Right Arm] 70 Blood Pressure Position Pulse Oximetry 96 96 96 Oxygen Delivery Method Sepsis Recent Fever Within 48 Hours Sepsis Action Taken by Nursing 11/14/19 16:30 11/14/19 16:40 11/14/19 16:50 Temperature Temperature Source Pulse Rate 59 L 47 L 54 L Pulse Rate [Right Finger] Pulse Rate from SpO2 Sensor 56 L 49 L 58 L Pulse Rhythm Pulse Strength Respiratory Rate 24 21 22 Respiratory Effort / Characteristics Respiratory Depth Respiratory Pattern Blood Pressure Blood Pressure [Right Arm] Blood Pressure Mean Blood Pressure Mean [Right Arm] Blood Pressure Position Pulse Oximetry 95 94 95 Oxygen Delivery Method Sepsis Recent Fever Within 48 Hours Sepsis Action Taken by Nursing 11/14/19 17:00 11/14/19 17:10 11/14/19 17:20 Temperature Temperature Source Pulse Rate 57 L 47 L 65 Pulse Rate [Right Finger] Pulse Rate from SpO2 Sensor 48 L 47 L 61 Pulse Rhythm Pulse Strength Respiratory Rate 19 18 21 Respiratory Effort / Characteristics Respiratory Depth Respiratory Pattern Blood Pressure 124/56 L Blood Pressure [Right Arm] Blood Pressure Mean 103 Blood Pressure Mean [Right Arm] Blood Pressure Position Pulse Oximetry 95 95 95 Oxygen Delivery Method Sepsis Recent Fever Within 48 Hours Sepsis Action Taken by Nursing 11/14/19 17:21 11/14/19 17:30 11/14/19 17:31 Temperature Temperature Source Pulse Rate 56 L 63 55 L Pulse Rate [Right Finger] Pulse Rate from SpO2 Sensor 65 Pulse Rhythm Pulse Strength Respiratory Rate 24 22 23 Respiratory Effort / Characteristics Respiratory Depth Respiratory Pattern Blood Pressure 112/77 Blood Pressure [Right Arm] Blood Pressure Mean 94 Blood Pressure Mean [Right Arm] Blood Pressure Position Pulse Oximetry 97 96 97 Oxygen Delivery Method Sepsis Recent Fever Within 48 Hours Sepsis Action Taken by Nursing 11/14/19 17:40 11/14/19 17:50 11/14/19 17:53 Temperature Temperature Source Pulse Rate 53 L 48 L 52 L Pulse Rate [Right Finger] Pulse Rate from SpO2 Sensor 53 L Pulse Rhythm Pulse Strength Respiratory Rate 24 20 18 Respiratory Effort / Characteristics Respiratory Depth Respiratory Pattern Blood Pressure 129/63 Blood Pressure [Right Arm] Blood Pressure Mean 81 Blood Pressure Mean [Right Arm] Blood Pressure Position Pulse Oximetry 97 96 95 Oxygen Delivery Method Sepsis Recent Fever Within 48 Hours Sepsis Action Taken by Nursing 11/14/19 18:00 11/14/19 18:01 11/14/19 18:10 Temperature Temperature Source Pulse Rate 44 L 44 L 66 Pulse Rate [Right Finger] Pulse Rate from SpO2 Sensor 47 L 44 L 61 Pulse Rhythm Pulse Strength Respiratory Rate 17 17 15 Respiratory Effort / Characteristics Respiratory Depth Respiratory Pattern Blood Pressure 133/61 Blood Pressure [Right Arm] Blood Pressure Mean 90 Blood Pressure Mean [Right Arm] Blood Pressure Position Pulse Oximetry 94 94 96 Oxygen Delivery Method Sepsis Recent Fever Within 48 Hours Sepsis Action Taken by Nursing VITAL SIGNS - Vital signs and nursing notes were reviewed. Stable and afebrile. GENERAL - 79-year-old male appearing his stated age who is in no acute distress. Communicates well with provider and answers questions appropriately. SKIN - Without rashes. No meningeal or petechial rash. HEAD - NC/AT. EYES - Sclera anicteric. EARS - No deformities of external structures noted on gross examination bilaterally. External auditory canals without discharge or otorrhea. Tympanic membranes pearly hughes without retraction or bulging. No fluid or purulent material visualized behind the TM. Handle of malleus, umbo, cone of light, pars tensa/flaccid all easily visualized. NOSE - Midline and without cyanosis. No epistaxis or purulent drainage noted. Septum midline without deviation or septal hematoma noted. MOUTH/OROPHARYNX - Without perioral cyanosis. Buccal mucosa pink and moist and without leukoplakia. Tongue midline with equal elevation of palate bilaterally. No tonsillar hypertrophy, erythema, or exudates noted. Fair dentition noted. NECK - Neck with FROM. No meningismus. No nuchal rigidity. LUNGS - Chest wall symmetric without accessory muscle use, intercostals retractions, or central cyanosis. Normal vesicular breath sounds CTA B/L. No wheezes, rales, or rhonchi appreciated. CARDIAC - RRR with S1/S2. No murmur, rubs, or gallops appreciated. ABDOMEN - Abdominal contour normal without pulsations or visible masses. BS normoactive all four quadrants. No tenderness, palpable masses, hepatosplenomegaly, or ascites noted. EXTREMITIES - No clubbing or peripheral cyanosis. No pretibial edema present. Right calf is without any palpable cord or edema. +5/5 strength noted in UE/LE bilaterally. NEUROLOGIC - Cranial nerves II through XII grossly intact. PSYCH - A&O, and cooperates fully with examiner. Pt is very pleasant and i nteracts well with examiner. Course Administered Medications Famotidine (Pepcid) 40 mg PO HS MORIS Stop: 12/14/19 20:59 Last Admin: 11/14/19 21:51 Dose: 40 mg Documented by: [id number] Fluticasone/Vilanterol (Breo Ellipta 100/25 Mcg Inh) 1 puffs INH QPM MORIS; Protocol Stop: 12/14/19 20:59 Last Admin: 11/14/19 21:49 Dose: 1 puffs Documented by: [id number] Heparin Sodium (Porcine) (Heparin Sodium (Porcine)) 5,000 units SQ Q8 MORIS Stop: 12/14/19 21:59 Last Admin: 11/14/19 22:49 Dose: 5,000 units Documented by: [id number] Cosigned by: [id number] Sodium Chloride (Nss 1000ml) 1,000 mls @ 125 mls/hr IV .Q8H MORIS Stop: 12/14/19 20:26 Last Admin: 11/14/19 21:49 Dose: 125 mls/hr Documented by: [id number] Discontinued Medications Acetaminophen (Tylenol) 650 mg PO NOW STA Stop: 11/14/19 15:27 Last Admin: 11/14/19 16:06 Dose: 650 mg Documented by: [id number] Sodium Chloride (Nss 1000ml) 1,000 mls @ 250 mls/hr IV .Q4H MORIS Stop: 11/14/19 19:29 Last Infusion: 11/14/19 19:33 Dose: 0 mls/hr Documented by: [id number] Admin: 11/14/19 16:06 Dose: 250 mls/hr Documented by: [id number] Sodium Chloride (Nss 1000ml) 1,000 mls @ 999 mls/hr IV .Q1H1M ONE Stop: 11/14/19 19:06 Last Infusion: 11/14/19 19:33 Dose: 0 mls/hr Documented by: [id number] Admin: 11/14/19 18:30 Dose: 999 mls/hr Documented by: [id number] Piperacillin Sod/Tazobactam (Sod 4.5 gm/ Dextrose) 120 mls @ 200 mls/hr IV NOW ONE; Protocol Stop: 11/14/19 20:50 Last Infusion: 11/14/19 23:12 Dose: 0 mls/hr Documented by: [id number] Admin: 11/14/19 22:36 Dose: 200 mls/hr Documented by: [id number] Magnesium Sulfate/Dextrose (Magnesium Sulfate / D5w) 1 gm in 100 mls @ 50 mls/hr IV ONE ONE Stop: 11/14/19 22:59 Last Infusion: 11/14/19 23:49 Dose: 0 mls/hr Documented by: [id number] Admin: 11/14/19 21:49 Dose: 50 mls/hr Documented by: [id number] Pneumococcal Polyvalent Vaccine (Pneumovax-23) 25 mcg IM .ONCE ONE Stop: 11/14/19 20:27 Last Admin: 11/14/19 21:45 Dose: Not Given Documented by: [id number] Medical Decision Making Laboratory Data Result diagrams: 11/14/19 15:40 11/14/19 15:40 Lab Results 11/14/19 11/14/19 11/14/19 Range/Units 15:40 15:40 15:40 WBC 6.55 (4.8-10.8) K/uL RBC 4.57 L (4.7-6.1) M/uL Hgb 13.9 L (14.0-18.0) g/dL Hct 41.3 L (42-52) % MCV 90.4 (80-100) fL MCH 30.4 (25-34) pg MCHC 33.7 (32-36) g/dL RDW Std Deviation 46.2 (36.4-46.3) fL RDW Coeff of Tay 13.9 (11.5-14.5) % Plt Count 122 L (130-400) K/uL MPV 11.7 H (7.4-10.4) fL Immature Gran % (Auto) 0.3 % Neut % (Auto) 87.5 % Lymph % (Auto) 5.0 % [place] % (Auto) 7.0 % Eos % (Auto) 0.0 % Baso % (Auto) 0.2 % Neut # (Auto) 5.73 (1.4-6.5) K/uL Lymph # (Auto) 0.33 L (1.2-3.4) K/uL [place] # (Auto) 0.46 (0.11-0.59) K/uL Eos # (Auto) 0.00 (0-0.5) K/uL Baso # (Auto) 0.01 (0-0.2) K/uL Immature Gran # (Auto) 0.02 (0.00-0.02) K/uL PT 11.9 (9.0-12.0) Seconds INR 1.1 (0.9-1.1) APTT 32.2 H (21.0-31.0) Seconds PTT Ratio 1.2 Sodium 133 L (136-145) mmol/L Potassium 3.5 (3.5-5.1) mmol/L Chloride 101 (98-107) mmol/L Carbon Dioxide 23 (21-32) mmol/L Anion Gap 9.0 (3-11) BUN 19 H (7-18) mg/dl Creatinine 1.55 H (0.6-1.4) mg/dl Est Cr Clr Drug Dosing 38.2 ml/min Est GFR ( Amer) 49.3 Est GFR (Non-Af Amer) 42.5 BUN/Creatinine Ratio 12.1 (10-20) Glucose 134 H (70-99) mg/dl Lactate (0.4-2.0) mmol/L Calcium 8.3 L (8.5-10.1) mg/dl Magnesium 1.7 L (1.8-2.4) mg/dl Total Bilirubin 1.1 H (0.2-1) mg/dl AST 38 H (15-37) U/L ALT 42 (12-78) U/L Alkaline Phosphatase 86 (45-117) U/L Troponin I 0.016 (0-0.045) ng/ml Total Protein 6.8 (6.4-8.2) gm/dl Albumin 3.4 (3.4-5.0) gm/dl Globulin 3.4 (2.5-4.0) gm/dl Albumin/Globulin Ratio 1.0 (0.9-2) Procalcitonin (0-0.5) ng/ml Specimen Hemolysis Lyme Disease IgG Ab (Negative) Lyme Disease IgM Ab (Negative) Influenza Type A (PCR) (Neg) Influenza Type B (PCR) (Neg) 11/14/19 11/14/19 11/14/19 Range/Units 15:40 15:50 15:55 WBC (4.8-10.8) K/uL RBC (4.7-6.1) M/uL Hgb (14.0-18.0) g/dL Hct (42-52) % MCV (80-100) fL MCH (25-34) pg MCHC (32-36) g/dL RDW Std Deviation (36.4-46.3) fL RDW Coeff of Tay (11.5-14.5) % Plt Count (130-400) K/uL MPV (7.4-10.4) fL Immature Gran % (Auto) % Neut % (Auto) % Lymph % (Auto) % [place] % (Auto) % Eos % (Auto) % Baso % (Auto) % Neut # (Auto) (1.4-6.5) K/uL Lymph # (Auto) (1.2-3.4) K/uL [place] # (Auto) (0.11-0.59) K/uL Eos # (Auto) (0-0.5) K/uL Baso # (Auto) (0-0.2) K/uL Immature Gran # (Auto) (0.00-0.02) K/uL PT (9.0-12.0) Seconds INR (0.9-1.1) APTT (21.0-31.0) Seconds PTT Ratio Sodium (136-145) mmol/L Potassium (3.5-5.1) mmol/L Chloride (98-107) mmol/L Carbon Dioxide (21-32) mmol/L Anion Gap (3-11) BUN (7-18) mg/dl Creatinine (0.6-1.4) mg/dl Est Cr Clr Drug Dosing ml/min Est GFR ( Amer) Est GFR (Non-Af Amer) BUN/Creatinine Ratio (10-20) Glucose (70-99) mg/dl Lactate 1.6 (0.4-2.0) mmol/L Calcium (8.5-10.1) mg/dl Magnesium (1.8-2.4) mg/dl Total Bilirubin (0.2-1) mg/dl AST (15-37) U/L ALT (12-78) U/L Alkaline Phosphatase (45-117) U/L Troponin I (0-0.045) ng/ml Total Protein (6.4-8.2) gm/dl Albumin (3.4-5.0) gm/dl Globulin (2.5-4.0) gm/dl Albumin/Globulin Ratio (0.9-2) Procalcitonin 1.16 H (0-0.5) ng/ml Specimen Hemolysis Lyme Disease IgG Ab Negative (Negative) Lyme Disease IgM Ab Negative (Negative) Influenza Type A (PCR) Neg for Influ A (Neg) Influenza Type B (PCR) Neg for Influ B (Neg) Imaging Data Radiologist's Impression: SINGLE VIEW CHEST CLINICAL HISTORY: Sepsis. FINDINGS: An AP, portable, upright chest radiograph is compared to study dated 04/16/2019. Correlation is made with chest CT dated 02/18/2014. The examination is degraded by portable technique and apical lordotic positioning. The heart is top normal for projection. The mediastinal contour is within normal limits. The lungs and pleural spaces are clear. No pneumothorax is seen. The skeletal structures are osteopenic. The bony thorax is grossly intact. IMPRESSION: No active disease in the chest. ACT 112: Negative or not required by law. Electronically signed by: Sawyer Dacosta M.D. 11/14/2019 4:23 PM ECG Data Additional Comments: Per my interpretation EKG reveals sinus rhythm with PAC. Rate of 66 bpm. QTc 429. QRS 84. No ST elevation MO. This was compared to EKG of April 17, 2019 and no significant change was found. MDM Narrative Patient was seen and evaluated as above in room a 11 B. Review was performed of nursing notes and vital signs. I did review pertinent previous visits and patie nt history. After obtaining a thorough history and physical examination the above work up was performed. He presents to us today with shortness of breath, fever. He is nontoxic on examination. I will note that this patient is being seen during a COVID-19 pandemic. Chest x-ray was obtained. Results as above. This was negative for acute process. No leukocytosis. Mild anemia is noted. No emergent metabolic disturbance. Creatinine is mildly elevated at 1.55. Lactic is within normal limits but pro calcitonin is elevated at 1.16. Troponin is not elevated. Urinalysis is negative. Lyme testing negative. Flu testing negative. COVID testing is pending. Given the patient's fever of unknown origin with associated shortness of breath is felt that further evaluation and management is warranted in the inpatient setting. Options of care were discussed with the patient and he was amenable to staying. Case discussed with the hospitalist and attending physician. Please refer to further documentation regarding his stay. No evidence of meningitis or encephalitis on examination An order was placed for continuous cardiac monitoring. The monitor shows a rate of 72 with sinus rhythm. I attest that I have personally reviewed the patient medication list. GCS: 15 In the evaluation and treatment of this patient the following differential diagnoses were entertained: MO, PE, pericarditis, costochondritis, pneumonia, COVID-19, electrolyte disturbance, UTI, among others Impression & Plan Fever, Dyspnea Discharge Plan Visit Data *Final* Discharge Date/Time: 11/14/19 19:34 Chief Complaint: Shortness of Breath/Dyspnea Stated Complaint: SOB, DIZZY, WEAKNESS ED Provider: Reena Vick ED Midlevel Provider: Mat Morales Discharge Problem: Fever, Dyspnea Patient Disposition: Admitted As Inpatient Condition: Good Discharge Instructions Interventions: ED Discharge Assessment Last Done: 11/14/19 19:34
--- NOTE | 2019-11-14 16:24 | XRay Report ---
SINGLE VIEW CHEST CLINICAL HISTORY: Sepsis. FINDINGS: An AP, portable, upright chest radiograph is compared to study dated 04/16/2019. Correlatio n is made with chest CT dated 02/18/2014. The examination is degraded by portable technique and apica l lordotic positioning. The heart is top normal for projection. The mediastinal contour is within nor mal limits. The lungs and pleural spaces are clear. No pneumothorax is seen. The skeletal structures are osteopenic. The bony thorax is grossly intact. IMPRESSION: No active disease in the chest. ACT 112: Negative or not required by law. Electronically signed by: Sawyer Dacosta M.D. 11/14/2019 4:23 PM
[2019-11-14 16:25] LABS: INR 1.1 (0.9-1.1); Partial Thromboplastin Ratio 1.2; Partial Thromboplastin Time 32.2 Seconds (21.0-31.0); Prothrombin Time 11.9 Seconds (9.0-12.0)
[2019-11-14 16:38] LABS: Albumin Level 3.4 gm/dl (3.4-5.0); BUN Creatinine Ratio 12.1 (10-20); Bilirubin,Total 1.1 mg/dl (0.2-1); Calcium 8.3 mg/dl (8.5-10.1); Creatinine Clr Calc Pharmacy 38.2 ml/min; Est GFR (African American) 49.3; Est GFR (Non-African American) 42.5; Globulin 3.4 gm/dl (2.5-4.0); Magnesium 1.7 mg/dl (1.8-2.4); Potassium 3.5 mmol/L (3.5-5.1); Total Protein 6.8 gm/dl (6.4-8.2); Troponin I 0.016 ng/ml (0-0.045)
[2019-11-14 16:51] LABS: Influenza A virus by PCR Neg for Influ A (Neg); Influenza B virus by PCR Neg for Influ B (Neg)
[2019-11-14 16:55] LABS: Procalcitonin 1.16 ng/ml (0-0.5)
[2019-11-14 17:06] LABS: Lyme Ab IgG w/WB Rflx Negative (Negative); Lyme Ab IgM w/WB Rflx Negative (Negative)
[2019-11-14] MEDS ORDERED: SODIUM CHLORIDE 0.9% 1000ML 1,000 ML IV ONE (18:06)
[2019-11-14] MEDS ORDERED: PIPERACILL/TAZOBAC CONSULT ACTIVE PRN ×2 (18:12→18:15)
[2019-11-14 18:55] LABS: Appearance Urine Clear (Clear); Bilirubin Urine Negative (Negative); Blood Urine Negative (Negative); Color Urine Yellow; Glucose Urine UA Negative (Negative); Ketones Urine Negative (Negative); Leukocyte Esterase Urine Negative (Negative); Nitrite Urine Negative (Negative); Protein Urine Negative (Negative); Specific Gravity Urine 1.014 (1.000-1.030); Urobilinogen Urine Negative (Negative)
--- NOTE | 2019-11-14 19:02 | History & Physical Report ---
Date of Service November 14, 2019 Assessment & Plan (1) Fever: (2) Dyspnea: Fever, chills, increased SOB, dry cough, one episode of loose stool Temp in ER 38.3. WBC 6.55 Procal 1.16 Lactate 1.6 Does not meet SIRS criteria but history and findings suggestive. Possible Inflammatory/infectious process such as sepsis vs Fever of unknown origin Get blood cultures COVID test pending Continue IVF Empiric antibiotics with zosyn for now Continue fluticasone-salmeterol inh bid and albuterol inh qid prn wheezing Reported one episode of loose stool. If persists, rule out c diff (3) CKD (chronic kidney disease) stage 3, GFR 30-59 ml/min: Cr is 1.55 Cr was 1.5 on 10/13/19 Monitor renal function Avoid nephrotoxins Hypomagnesemic 1.7. will replete and monitor (4) Hypertension: Normotensive so far Will hold antihypertensives for tonight Plan to resume in AM (5) Gastroesophageal reflux disease: Continue home meds (6) Sleep apnea: Chart review reported patient did not tolerate BIPAP in the past and he is not interested (7) Coronary artery disease: Continue home plavis and statin (8) DVT prophylaxis: heparin sq History of Present Illness 79 year old man with history of Hypertension, CKD3, GERD, dyslipidemia, CAD, VALARIE who presented with fevers that started yesterday. Stated that he had fevers yesterday, associated with chills, diaphoresis. Reports he gets dyspnea on exertion chronically but got worse yesterday, associated with dry cough This was associated with frontal headache and dizziness. Has one episode of non bloody diarrhea this morning. Denied any chest pain, palpitation, leg swelling, PND Denied any abd pain, nausea, vomiting, melena, hematemesis Denied any hemoptysis Denied any urinary symptoms. Denied any recent travels or contact with anyone with known or suspected COVID Denied any change in diet Primary Care Provider: Richard Domínguez MD Allergies Allergy/AdvReac Type Severity Reaction Status Date / Time No Known Allergies Allergy Unverified 11/14/19 16:17 Home Medications Home Medications Medication Instructions Recorded Confirmed Type albuterol sulfate 2 puff INHALATION Q4H PRN 03/10/19 11/14/19 History amlodipine 10 mg PO DAILY 03/10/19 11/14/19 History clopidogrel [Plavix] 75 mg PO DAILY 03/10/19 11/14/19 History furosemide [Lasix] 20 mg PO DAILY 03/10/19 11/14/19 History losartan 100 mg PO DAILY 03/10/19 11/14/19 History atorvastatin 40 mg PO QAM #30 tab 03/12/19 11/14/19 Rx carvedilol 25 mg PO DAILY 04/16/19 11/14/19 History pantoprazole 20 mg PO DAILY 04/16/19 11/14/19 History terazosin 2 mg PO HS 04/16/19 11/14/19 History famotidine 40 mg PO HS #30 tab 04/17/19 11/14/19 Rx carvedilol 12.5 mg PO PM 11/14/19 11/14/19 History fluticasone propion-salmeterol 1 inh INHALATION BID 11/14/19 11/14/19 History [[facility]] Past Med/Surg History Medical History (Updated 11/14/19 @ 18:52 by Fozia Feliciano MD) Carotid artery stenosis Cerebrovascular disease (Chronic Unknown) COPD (chronic obstructive pulmonary disease) Coronary artery disease cath [facility] 03/11/19 nonocclusive 30-40% stenoses left circ GERD (gastroesophageal reflux disease) Hypertension Mild intermittent asthma VALARIE (obstructive sleep apnea) Surgical History Traumatic enucleation of right eye Social History Preferred Language: Spanish Communication Ability: Effective Director Of Archives Required: No Beliefs That Will Affect Care: None marital status: marital status details: 51 years Current Living Situation: Spouse current occupational status: retired Feels Safe at Home: Yes Smoking Status: Never smoker Second Hand Exposure: Yes (As a child. Father when patient was 15 years old) ; Hx Alcohol Use: No Hx Substance Use: No during the past year weight has: remained stable Review of Systems Constitutional: + fever, + chills, + sweats and + malaise Respiratory: + cough and + dyspnea on exertion Cardiovascular: + lightheadedness; no chest pain, no palpitations, no syncope and no edema Gastrointestinal: + diarrhea/loose stools; no abdominal pain, no nausea and no vomiting Genitourinary: no problem reported Neurologic: + headache(s) Psychiatric: no problem reported Physical Exam Constitutional: + well hydrated and + obese; no acute distress ENMT: external ear and nose normal, oropharynx normal Respiratory: normal respiratory effort; no respiratory distress Auscultation: no crackles and no rales Mild scattered wheeze Cardiovascular: Rate/Rhythm: + bradycardic Extremities: no pedal edema S1 s2 Gastrointestinal (Abdomen): normal bowel sounds, soft, nontender, no hepatosplenomegaly Musculoskeletal: no cyanosis or clubbing, extremities motor strength 5/5 Neurologic: AOX3, No focal deficits in motor and sensory exam grossly Psychiatric: A+Ox3, euthymic affect Genitourinary: no CVA tenderness Results & Data Results & Data ([facility]) Vital Signs (Past 12 Hours) Vital Signs Temp Pulse Pulse Resp BP BP Pulse Ox 11/14/19 18:30 56 L 19 133/61 96 11/14/19 17:53 52 L 18 129/63 95 11/14/19 17:50 48 L 20 96 11/14/19 17:40 53 L 24 97 11/14/19 17:31 55 L 23 112/77 97 11/14/19 17:30 63 22 96 11/14/19 17:21 56 L 24 97 11/14/19 17:20 65 21 124/56 L 95 11/14/19 17:10 47 L 18 95 11/14/19 17:00 57 L 19 95 11/14/19 16:50 54 L 22 95 11/14/19 16:40 47 L 21 94 11/14/19 16:30 59 L 24 95 11/14/19 16:20 60 19 96 11/14/19 16:10 63 22 96 11/14/19 16:08 63 22 112/50 L 96 11/14/19 16:02 68 21 11/14/19 15:58 63 24 112/50 L 97 11/14/19 15:03 38.3 C H 73 20 96 Laboratory Results Laboratory Results - last 24 hr 11/14/19 11/14/19 11/14/19 15:40 15:40 15:40 WBC 6.55 RBC 4.57 L Hgb 13.9 L Hct 41.3 L MCV 90.4 MCH 30.4 MCHC 33.7 RDW Std Deviation 46.2 RDW Coeff of Tay 13.9 Plt Count 122 L MPV 11.7 H Immature Gran % (Auto) 0.3 Neut % (Auto) 87.5 Lymph % (Auto) 5.0 [place] % (Auto) 7.0 Eos % (Auto) 0.0 Baso % (Auto) 0.2 Neut # (Auto) 5.73 Lymph # (Auto) 0.33 L [place] # (Auto) 0.46 Eos # (Auto) 0.00 Baso # (Auto) 0.01 Immature Gran # (Auto) 0.02 PT 11.9 INR 1.1 APTT 32.2 H PTT Ratio 1.2 Sodium 133 L Potassium 3.5 Chloride 101 Carbon Dioxide 23 Anion Gap 9.0 BUN 19 H Creatinine 1.55 H Est Cr Clr Drug Dosing 38.2 Est GFR ( Amer) 49.3 Est GFR (Non-Af Amer) 42.5 BUN/Creatinine Ratio 12.1 Glucose 134 H Lactate Calcium 8.3 L Magnesium 1.7 L Total Bilirubin 1.1 H AST 38 H ALT 42 Alkaline Phosphatase 86 Troponin I 0.016 Total Protein 6.8 Albumin 3.4 Globulin 3.4 Albumin/Globulin Ratio 1.0 Procalcitonin Specimen Hemolysis Urine Color Urine Appearance Urine pH Ur Specific [place] Urine Protein Urine Glucose (UA) Urine Ketones Urine Blood Urine Nitrite Urine Bilirubin Urine Urobilinogen Ur Leukocyte Esterase Lyme Disease IgG Ab Lyme Disease IgM Ab Influenza Type A (PCR) Influenza Type B (PCR) 11/14/19 11/14/19 11/14/19 15:40 15:50 15:55 WBC RBC Hgb Hct MCV MCH MCHC RDW Std Deviation RDW Coeff of Tay Plt Count MPV Immature Gran % (Auto) Neut % (Auto) Lymph % (Auto) [place] % (Auto) Eos % (Auto) Baso % (Auto) Neut # (Auto) Lymph # (Auto) [place] # (Auto) Eos # (Auto) Baso # (Auto) Immature Gran # (Auto) PT INR APTT PTT Ratio Sodium Potassium Chloride Carbon Dioxide Anion Gap BUN Creatinine Est Cr Clr Drug Dosing Est GFR ( Amer) Est GFR (Non-Af Amer) BUN/Creatinine Ratio Glucose Lactate 1.6 Calcium Magnesium Total Bilirubin AST ALT Alkaline Phosphatase Troponin I Total Protein Albumin Globulin Albumin/Globulin Ratio Procalcitonin 1.16 H Specimen Hemolysis Urine Color Urine Appearance Urine pH Ur Specific [place] Urine Protein Urine Glucose (UA) Urine Ketones Urine Blood Urine Nitrite Urine Bilirubin Urine Urobilinogen Ur Leukocyte Esterase Lyme Disease IgG Ab Negative Lyme Disease IgM Ab Negative Influenza Type A (PCR) Neg for Influ A Influenza Type B (PCR) Neg for Influ B 11/14/19 18:36 WBC RBC Hgb Hct MCV MCH MCHC RDW Std Deviation RDW Coeff of Tay Plt Count MPV Immature Gran % (Auto) Neut % (Auto) Lymph % (Auto) [place] % (Auto) Eos % (Auto) Baso % (Auto) Neut # (Auto) Lymph # (Auto) [place] # (Auto) Eos # (Auto) Baso # (Auto) Immature Gran # (Auto) PT INR APTT PTT Ratio Sodium Potassium Chloride Carbon Dioxide Anion Gap BUN Creatinine Est Cr Clr Drug Dosing Est GFR ( Amer) Est GFR (Non-Af Amer) BUN/Creatinine Ratio Glucose Lactate Calcium Magnesium Total Bilirubin AST ALT Alkaline Phosphatase Troponin I Total Protein Albumin Globulin Albumin/Globulin Ratio Procalcitonin Specimen Hemolysis Urine Color Pending Urine Appearance Pending Urine pH Pending Ur Specific [place] Pending Urine Protein Pending Urine Glucose (UA) Pending Urine Ketones Pending Urine Blood Pending Urine Nitrite Pending Urine Bilirubin Pending Urine Urobilinogen Pending Ur Leukocyte Esterase Pending Lyme Disease IgG Ab Lyme Disease IgM Ab Influenza Type A (PCR) Influenza Type B (PCR) Code Status & VTE Plan VTE Prophylaxis Plan VTE Prophylaxis will be ordered: Yes
[2019-11-14] MEDS ORDERED: PIPERACILLIN/TAZOBACTAM 4.5 GM in DEXTROSE 5% 100 ML IV ONE (20:15)
[2019-11-14] MEDS ORDERED: PNEUMOCOCCAL POLYSACCHARIDES 25 MCG/0.5 ML VIAL/SYR IM ONE (20:26)
[2019-11-14] MEDS ORDERED: PNEUMOCOCCAL ADMINISTRATION CHARGE ONE (20:26)
[2019-11-14] MEDS ORDERED: ACETAMINOPHEN 325 MG TAB PO PRN (20:27)
[2019-11-14] MEDS ORDERED: ALBUTEROL HFA 8 GM INHALER INH PRN (20:27)
[2019-11-14] MEDS ORDERED: ONDANSETRON INJ 2 MG/ML 2 ML VIAL IV PRN (20:27)
[2019-11-14] MEDS ORDERED: MAGNESIUM SULFATE / D5W 1 GM/100 ML BAG IV ONE (21:00)
[2019-11-14] MEDS ORDERED: FLUTICASONE/VILANTEROL 100/25MCG 14 PUFFS/INHALER INH SCH (21:00)
[2019-11-14] MEDS: SODIUM CHLORIDE 0.9% 1000ML 1,000 ML IV SCH (21:49)
[2019-11-14] MEDS: FAMOTIDINE 40 MG TABLET PO SCH (21:51)
[2019-11-14] MEDS: HEPARIN SOD 5,000 UNIT/0.5 ML VIAL SQ SCH (22:49)
[2019-11-15] MEDS: SODIUM CHLORIDE 0.9% 1000ML 1,000 ML IV SCH ×3 (05:27→21:30)
[2019-11-15] MEDS: PIPERACILLIN/TAZOBACTAM 3.375 GM in DEXTROSE 5% 100 ML IV SCH ×3 (05:27→20:20)
[2019-11-15] MEDS: HEPARIN SOD 5,000 UNIT/0.5 ML VIAL SQ SCH ×3 (05:36→21:23)
[2019-11-15 06:41] LABS: Hemoglobin 13.3 g/dL (14.0-18.0); Mean Corpuscular Hemoglobin 30.6 pg (25-34); Mean Corpuscular Hgb Conc 34.1 g/dL (32-36); Mean Corpuscular Volume 89.9 fL (80-100); Mean Platelet Volume 11.9 fL (7.4-10.4); Platelet Count 104 K/uL (130-400); RDW Coefficient of Variation 13.9 % (11.5-14.5); RDW Standard Deviation 46.5 fL (36.4-46.3); Red Blood Count 4.34 M/uL (4.7-6.1); White Blood Count 5.09 K/uL (4.8-10.8)
[2019-11-15 07:26] LABS: Albumin Globulin Ratio 0.9 (0.9-2); Bilirubin,Total 0.9 mg/dl (0.2-1); Calcium 8.2 mg/dl (8.5-10.1); Creatinine Clr Calc Pharmacy 46.5 ml/min; Est GFR (African American) 63.3; Est GFR (Non-African American) 54.7; Globulin 3.2 gm/dl (2.5-4.0); Potassium 3.4 mmol/L (3.5-5.1); Total Protein 6.2 gm/dl (6.4-8.2)
[2019-11-15] MEDS: ATORVASTATIN 40 MG TAB PO SCH (08:10)
[2019-11-15] MEDS: CLOPIDOGREL BISULFATE 75 MG TAB PO SCH (08:10)
[2019-11-15] MEDS: PANTOprazole 40 MG TAB PO SCH (08:11)
[2019-11-15] MEDS: LOSARTAN POTASSIUM 50 MG TAB PO SCH (09:26)
[2019-11-15] MEDS: AMLODIPINE BESYLATE 5 MG TAB PO SCH (09:26)
[2019-11-15] MEDS: carvediloL 25 MG TAB PO SCH (09:27)
--- NOTE | 2019-11-15 10:53 | Hospitalist Progress Note ---
Date of Service November 15, 2019 Assessment & Plan (1) Fever: (2) Dyspnea: Fever, chills, increased SOB, dry cough, one episode of loose stool Temp in ER 38.3. WBC 6.55 Procal 1.16 Lactate 1.6 Been afebrile since after fever recorded on admission Does not meet SIRS criteria but history and findings suggestive. Possible Inflammatory/infectious process such as sepsis vs Fever of unknown origin Blood cultures in lab. Awaiting result COVID test pending Continue empiric antibiotics with zosyn for now until blood culture Continue fluticasone-salmeterol inh bid and albuterol inh qid prn wheezing (3) CKD (chronic kidney disease) stage 3, GFR 30-59 ml/min: Cr is 1.55 [facility] is 1.26 today Monitor renal function Avoid nephrotoxins Hypomagnesemic 1.7. on admission resolved (4) Hypertension: BP up this AM Resumed all home antihypertensives Monitor BP (5) Gastroesophageal reflux disease: Continue home meds (6) Sleep apnea: Chart review reported patient did not tolerate BIPAP in the past and he is not interested (7) Coronary artery disease: Continue home plavis and statin (8) DVT prophylaxis: heparin sq Admission and Anticipated Discharge Date Admission Date: November 14, 2019 Subjective Patient seen and examined. Reports fevers, chills and headache have resolved Still has some dyspnea on exertion Denied any cough today. Reported he had no more diarrhea. Had normal bowel movement this AM Denied any chest pain, palpitation, PND Denied any urinary symptoms Physical Exam Constitutional: + well hydrated and + obese; no acute distress ENMT: external ear and nose normal, oropharynx normal Respiratory: normal respiratory effort; no respiratory distress Auscultation: + wheezes; no crackles and no rales Cardiovascular: Rate/Rhythm: + bradycardic Extremities: no pedal edema Gastrointestinal (Abdomen): normal bowel sounds, soft, nontender, no hepatosplenomegaly Musculoskeletal: no cyanosis or clubbing, extremities motor strength 5/5 Neurologic: PERRL, EOMI, accommodation nl, no face palsy, no dysarthria Psychiatric: A+Ox3, euthymic affect Genitourinary: no CVA tenderness Results & Data Results & Data ([facility]) Vital Signs (Past 12 Hours) Vital Signs Temp Pulse Pulse Resp BP BP Pulse Ox 11/15/19 08:03 68 11/15/19 07:58 37.5 C 64 18 135/69 97 11/15/19 07:02 68 11/15/19 00:01 37.2 C 85 24 199/63 H 98 11/14/19 23:48 79 Laboratory Results Laboratory Results - last 24 hr 11/14/19 11/14/19 11/14/19 15:40 15:40 15:40 WBC 6.55 RBC 4.57 L Hgb 13.9 L Hct 41.3 L MCV 90.4 MCH 30.4 MCHC 33.7 RDW Std Deviation 46.2 RDW Coeff of Tay 13.9 Plt Count 122 L MPV 11.7 H Immature Gran % (Auto) 0.3 Neut % (Auto) 87.5 Lymph % (Auto) 5.0 [place] % (Auto) 7.0 Eos % (Auto) 0.0 Baso % (Auto) 0.2 Neut # (Auto) 5.73 Lymph # (Auto) 0.33 L [place] # (Auto) 0.46 Eos # (Auto) 0.00 Baso # (Auto) 0.01 Immature Gran # (Auto) 0.02 PT 11.9 INR 1.1 APTT 32.2 H PTT Ratio 1.2 Sodium 133 L Potassium 3.5 Chloride 101 Carbon Dioxide 23 Anion Gap 9.0 BUN 19 H Creatinine 1.55 H Est Cr Clr Drug Dosing 38.2 Est GFR ( Amer) 49.3 Est GFR (Non-Af Amer) 42.5 BUN/Creatinine Ratio 12.1 Glucose 134 H Lactate Calcium 8.3 L Magnesium 1.7 L Total Bilirubin 1.1 H AST 38 H ALT 42 Alkaline Phosphatase 86 Troponin I 0.016 Total Protein 6.8 Albumin 3.4 Globulin 3.4 Albumin/Globulin Ratio 1.0 Procalcitonin Specimen Hemolysis Urine Color Urine Appearance Urine pH Ur Specific [place] Urine Protein Urine Glucose (UA) Urine Ketones Urine Blood Urine Nitrite Urine Bilirubin Urine Urobilinogen Ur Leukocyte Esterase Lyme Disease IgG Ab Lyme Disease IgM Ab Influenza Type A (PCR) Influenza Type B (PCR) SARS-CoV-2 RNA (RT-PCR) 11/14/19 11/14/19 11/14/19 15:40 15:50 15:55 WBC RBC Hgb Hct MCV MCH MCHC RDW Std Deviation RDW Coeff of Tay Plt Count MPV Immature Gran % (Auto) Neut % (Auto) Lymph % (Auto) [place] % (Auto) Eos % (Auto) Baso % (Auto) Neut # (Auto) Lymph # (Auto) [place] # (Auto) Eos # (Auto) Baso # (Auto) Immature Gran # (Auto) PT INR APTT PTT Ratio Sodium Potassium Chloride Carbon Dioxide Anion Gap BUN Creatinine Est Cr Clr Drug Dosing Est GFR ( Amer) Est GFR (Non-Af Amer) BUN/Creatinine Ratio Glucose Lactate 1.6 Calcium Magnesium Total Bilirubin AST ALT Alkaline Phosphatase Troponin I Total Protein Albumin Globulin Albumin/Globulin Ratio Procalcitonin 1.16 H Specimen Hemolysis Urine Color Urine Appearance Urine pH Ur Specific [place] Urine Protein Urine Glucose (UA) Urine Ketones Urine Blood Urine Nitrite Urine Bilirubin Urine Urobilinogen Ur Leukocyte Esterase Lyme Disease IgG Ab Negative Lyme Disease IgM Ab Negative Influenza Type A (PCR) Neg for Influ A Influenza Type B (PCR) Neg for Influ B SARS-CoV-2 RNA (RT-PCR) 11/14/19 11/14/19 11/15/19 15:55 18:36 06:02 WBC 5.09 RBC 4.34 L Hgb 13.3 L Hct 39.0 L MCV 89.9 MCH 30.6 MCHC 34.1 RDW Std Deviation 46.5 H RDW Coeff of Tay 13.9 Plt Count 104 L MPV 11.9 H Immature Gran % (Auto) Neut % (Auto) Lymph % (Auto) [place] % (Auto) Eos % (Auto) Baso % (Auto) Neut # (Auto) Lymph # (Auto) [place] # (Auto) Eos # (Auto) Baso # (Auto) Immature Gran # (Auto) PT INR APTT PTT Ratio Sodium Potassium Chloride Carbon Dioxide Anion Gap BUN Creatinine Est Cr Clr Drug Dosing Est GFR ( Amer) Est GFR (Non-Af Amer) BUN/Creatinine Ratio Glucose Lactate Calcium Magnesium Total Bilirubin AST ALT Alkaline Phosphatase Troponin I Total Protein Albumin Globulin Albumin/Globulin Ratio Procalcitonin Specimen Hemolysis Urine Color Yellow Urine Appearance Clear Urine pH 5.0 Ur Specific [place] 1.014 Urine Protein Negative Urine Glucose (UA) Negative Urine Ketones Negative Urine Blood Negative Urine Nitrite Negative Urine Bilirubin Negative Urine Urobilinogen Negative Ur Leukocyte Esterase Negative Lyme Disease IgG Ab Lyme Disease IgM Ab Influenza Type A (PCR) Influenza Type B (PCR) SARS-CoV-2 RNA (RT-PCR) Pending 11/15/19 06:02 WBC RBC Hgb Hct MCV MCH MCHC RDW Std Deviation RDW Coeff of Tay Plt Count MPV Immature Gran % (Auto) Neut % (Auto) Lymph % (Auto) [place] % (Auto) Eos % (Auto) Baso % (Auto) Neut # (Auto) Lymph # (Auto) [place] # (Auto) Eos # (Auto) Baso # (Auto) Immature Gran # (Auto) PT INR APTT PTT Ratio Sodium 137 Potassium 3.4 L Chloride 105 Carbon Dioxide 24 Anion Gap 8.0 BUN 16 Creatinine 1.26 Est Cr Clr Drug Dosing 46.5 Est GFR ( Amer) 63.3 Est GFR (Non-Af Amer) 54.7 BUN/Creatinine Ratio 13.0 Glucose 109 H Lactate Calcium 8.2 L Magnesium 2.0 Total Bilirubin 0.9 AST 47 H ALT 45 Alkaline Phosphatase 73 Troponin I Total Protein 6.2 L Albumin 3.0 L Globulin 3.2 Albumin/Globulin Ratio 0.9 Procalcitonin Specimen Hemolysis Urine Color Urine Appearance Urine pH Ur Specific [place] Urine Protein Urine Glucose (UA) Urine Ketones Urine Blood Urine Nitrite Urine Bilirubin Urine Urobilinogen Ur Leukocyte Esterase Lyme Disease IgG Ab Lyme Disease IgM Ab Influenza Type A (PCR) Influenza Type B (PCR) SARS-CoV-2 RNA (RT-PCR)
[2019-11-15] MEDS: FLUTICASONE/VILANTEROL 100/25MCG 14 PUFFS/INHALER INH SCH ×2 (11:23→20:20)
--- NOTE | 2019-11-15 12:36 | Electrocardiogram Report ---
Test Reason : Blood Pressure : / mmHG Vent. Rate : 066 BPM Atrial Rate : 066 BPM P-R Int : 200 ms QRS Dur : 084 ms QT Int : 410 ms P-R-T Axes : 067 046 043 degrees QTc Int : 429 ms Sinus rhythm with Premature atrial complexes Otherwise normal ECG When compared with ECG of 17-APR-2019 06:28, Premature atrial complexes are now Present Confirmed by Adarsh Medrano [id number] on 11/15/2019 12:35:53 PM Referred By: Confirmed By:Adarsh Medrano
[2019-11-15] MEDS: FAMOTIDINE 40 MG TABLET PO SCH (20:21)
[2019-11-15] MEDS ORDERED: carvediloL 12.5 MG TAB PO SCH (21:00)
[2019-11-16] MEDS: PIPERACILLIN/TAZOBACTAM 3.375 GM in DEXTROSE 5% 100 ML IV SCH ×2 (05:23→12:40)
[2019-11-16] MEDS: SODIUM CHLORIDE 0.9% 1000ML 1,000 ML IV SCH ×3 (05:24→05:39)
[2019-11-16] MEDS: HEPARIN SOD 5,000 UNIT/0.5 ML VIAL SQ SCH (05:24)
[2019-11-16 07:19] LABS: Hematocrit (blood only) 35.7 % (42-52); Hemoglobin 12.4 g/dL (14.0-18.0); Mean Corpuscular Hemoglobin 30.7 pg (25-34); Mean Corpuscular Hgb Conc 34.7 g/dL (32-36); Mean Corpuscular Volume 88.4 fL (80-100); RDW Coefficient of Variation 14.1 % (11.5-14.5); Red Blood Count 4.04 M/uL (4.7-6.1); White Blood Count 3.86 K/uL (4.8-10.8)
[2019-11-16 07:41] LABS: Mean Platelet Volume 11.3 fL (7.4-10.4); Platelet Count 99 K/uL (130-400)
[2019-11-16 07:49] LABS: BUN Creatinine Ratio 11.3 (10-20); Calcium 8.1 mg/dl (8.5-10.1); Creatinine Clr Calc Pharmacy 54.8 ml/min; Est GFR (African American) 77.2; Est GFR (Non-African American) 66.6; Potassium 3.5 mmol/L (3.5-5.1)
[2019-11-16] MEDS: carvediloL 25 MG TAB PO SCH (08:31)
[2019-11-16] MEDS: FLUTICASONE/VILANTEROL 100/25MCG 14 PUFFS/INHALER INH SCH (08:31)
[2019-11-16] MEDS: CLOPIDOGREL BISULFATE 75 MG TAB PO SCH (08:32)
[2019-11-16] MEDS: ATORVASTATIN 40 MG TAB PO SCH (08:32)
[2019-11-16] MEDS: LOSARTAN POTASSIUM 50 MG TAB PO SCH (08:32)
[2019-11-16] MEDS: AMLODIPINE BESYLATE 5 MG TAB PO SCH (08:32)
[2019-11-16] MEDS: PANTOprazole 40 MG TAB PO SCH (08:32)
--- NOTE | 2019-11-16 11:43 | Discharge Summary ---
Date of Service November 16, 2019 Admission HPI Per Admitting Provider 79 year old man with history of Hypertension, CKD3, GERD, dyslipidemia, CAD, VALARIE who presented with fevers that started the day before Stated that he had fevers yesterday, associated with chills, diaphoresis. Reports he gets dyspnea on exertion chronically but got worse day before associated with dry cough This was associated with frontal headache and dizziness. Has one episode of non bloody diarrhea on day of presentation. Denied any chest pain, palpitation, leg swelling, PND Denied any abd pain, nausea, vomiting, melena, hematemesis Denied any hemoptysis Denied any urinary symptoms. Denied any recent travels or contact with anyone with known or suspected COVID Denied any change in diet Admission Exam Per Admitting Provider Constitutional: + well hydrated and + obese; no acute distress ENMT: external ear and nose normal, oropharynx normal Respiratory: normal respiratory effort; no respiratory distress Auscultation: no crackles and no rales Mild scattered wheeze Cardiovascular: Rate/Rhythm: + bradycardic Extremities: no pedal edema S1 s2 Gastrointestinal (Abdomen): normal bowel sounds, soft, nontender, no hepa tosplenomegaly Musculoskeletal: no cyanosis or clubbing, extremities motor strength 5/5 Neurologic: AOX3, No focal deficits in motor and sensory exam grossly Psychiatric: A+Ox3, euthymic affect Genitourinary: no CVA tenderness Principal Diagnosis Fever Acute bronchitis Discharge Exam Constitutional + well hydrated and + obese; no acute distress ENMT external ear and nose normal, oropharynx normal Respiratory normal respiratory effort, lungs clear to auscultation normal respiratory effort; no respiratory distress Auscultation: no crackles, no rales and no wheezes Cardiovascular Rate/Rhythm: + bradycardic Extremities: no pedal edema S1,S2. No pedal edema Gastrointestinal (Abdomen) normal bowel sounds, soft, nontender, no hepatosplenomegaly Musculoskeletal no cyanosis or clubbing, extremities motor strength 5/5 Neurologic PERRL, EOMI, accommodation nl, no face palsy, no dysarthria Psychiatric A+Ox3, euthymic affect Genitourinary no CVA tenderness Discharge Data Allergies Allergy/AdvReac Type Severity Reaction Status Date / Time No Known Allergies Allergy Unverified 11/14/19 16:17 Consultations 11/14/19 17:58 ED Decision to Admit Stat 11/14/19 20:27 Consult Case Management - Discharge Planning Routine Hospital Course (1) Fever: (2) Dyspnea: Fever, chills, increased SOB, dry cough, one episode of loose stool Temp in ER 38.3. WBC 6.55 Procal 1.16 Lactate 1.6 Been afebrile since after fever recorded on admission Does not meet SIRS criteria but history and findings suggestive. CXR - no active process Acute bronchitis Symptoms all resolved Blood cultures negative Empirical antibiotics discontinued COVID test pending Educated on home isolation and precautions prior to COVID test result Continue home fluticasone-salmeterol inh bid and albuterol inh qid prn wheezing (3) CKD (chronic kidney disease) stage 3, GFR 30-59 ml/min: Cr is 1.55 [facility] Cr was 1.55 on admission, 1.07 today Monitor renal function Avoid nephrotoxins Hypomagnesemic 1.7. on admission resolved (4) Hypertension: BP controlled Continue home antihypertensives (5) Gastroesophageal reflux disease: Continue home meds (6) Sleep apnea: Chart review reported patient did not tolerate BIPAP in the past and he is not interested (7) Coronary artery disease: Continue home plavis and statin Total Time Total Time Spent Total Time Spent (In Minutes): 25 Total Time Includes: Examination of the Patient, Discharge Planning and Medication Reconciliation Discharge Plan Discharge Items Patient Disposition: Home - Self-Care Reason For Visit: FEVER Discharge Diagnosis: Fever Acute bronchitis Condition on Discharge: Good Activity: Resume your previous activity Non-emergency contact: Primary Care Provider Call non-emergency contact if: you have any medication questions and your symptoms worsen Follow-up/Referrals: Richard Domínguez MD [Primary Care Provider] - 11/20/19 11:40 am (11/20/2019 11:40 AM Provider Rcihard Domínguez MD Department Family Practice [facility] ) Diet: Heart Healthy Addtl Attending Provider Instructions: Mr Barrera. You came to the hospital complaining of fevers, dry cough and increased shortness of breath. You were evaluated. Chest xray did not show any abnormalities You were treated with medications and your symptoms resolved Your COVID 19 test result is still pending. Please follow the home isolation instructions listed below until your test results. Please follow up with your Primary Care Doctor. It was a pleasure taking care of you. Home Isolation COVID-19 Instructions The following information about Home Isolation is from the CDC Website: https://www.cdc.gov/coronavirus/2019-ncov/hcp/tryzujur-hwcwnxe-oacuex.html Stay home except to get medical care People who are mildly ill with COVID-19 are able to isolate at home during their illness. You should restrict activities outside your home, except for getting medical care. Do not go to work, school, or public areas. Avoid using public transportation, ride-sharing, or taxis. Separate yourself from other people and animals in your home People: As much as possible, you should stay in a specific room and away from other people in your home. Also, you should use a separate bathroom, if available. Animals: You should restrict contact with pets and other animals while you are sick with COVID-19, just like you would around other people. Although there have not been reports of pets or other animals becoming sick with COVID-19, it is still recommended that people sick with COVID-19 limit contact with animals until more information is known about the virus. When possible, have another member of your household care for your animals while you are sick. If you are sick with COVID-19, avoid contact with your pet, including petting, snuggling, being kissed or licked, and sharing food. If you must care for your pet or be around animals while you are sick, wash your hands before and after you interact with pets and wear a face mask. Call ahead before visiting your doctor If you have a medical appointment, call the healthcare provider and tell them that you have or may have COVID-19. This will help the healthcare providers office take steps to keep other people from getting infected or exposed. Wear a face mask You should wear a face mask when you are around other people (e.g., sharing a room or vehicle) or pets and before you enter a healthcare providers office. If you are not able to wear a face mask (for example, because it causes trouble breathing), then people who live with you should not stay in the same room with you, or they should wear a face mask if they enter your room. Cover your coughs and sneezes Cover your mouth and nose with a tissue when you cough or sneeze. Throw used tissues in a lined trash can. Immediately wash your hands with soap and water for at least 20 seconds or, if soap and water are not available, clean your hands with an alcohol-based hand tone cabinet assembler that contains at least 60% alcohol. Clean your hands often Wash your hands often with soap and water for at least 20 seconds, especially after blowing your nose, coughing, or sneezing; going to the bathroom; and before eating or preparing food. If soap and water are not readily available, use an alcohol-based hand tone cabinet assembler with at least 60% alcohol, covering all surfaces of your hands and rubbing them together until they feel dry. Soap and water are the best option if hands are visibly dirty. Avoid touching your eyes, nose, and mouth with unwashed hands. Avoid sharing personal household items You should not share dishes, drinking glasses, cups, eating utensils, towels, or bedding with other people or pets in your home. After using these items, they should be washed thoroughly with soap and water. Clean all high-touch surfaces everyday High touch surfaces include counters, tabletops, doorknobs, bathroom fixtures, toilets, phones, keyboards, tablets, and bedside tables. Also, clean any surfaces that may have blood, stool, or body fluids on them. Use a household cleaning spray or wipe, according to the label instructions. Labels contain instructions for safe and effective use of the cleaning product including precautions you should take when applying the product, such as wearing gloves and making sure you have good ventilation during use of the product. Monitor your symptoms Seek prompt medical attention if your illness is worsening (e.g., difficulty breathing).Beforeseeking care, call your healthcare provider and tell them that you have, or are being evaluated for, COVID-19. Put on a face mask before you enter the facility. These steps will help the healthcare providers office to keep other people in the office or waiting room from getting infected or exposed. Ask your healthcare provider to call the local or [facility] health department. Persons who are placed under active monitoring or facilitated self- monitoring should follow instructions provided by their local health department or occupational health professionals, as appropriate. When working with your local health department check their available hours. If you have a medical emergency and need to call 911, notify the dispatch personnel that you have, or are being evaluated for COVID-19. If possible, put on a face mask before emergency medical services arrive. Discontinuing home isolation Patients with confirmed COVID-19 should remain under home isolation precautions until the risk of secondary transmission to others is thought to be low. The decision to discontinue home isolation precautions should be made on a [id number]-[id number] basis, in consultation with healthcare providers and state and local health departments. Pending Studies at Discharge: Yes Studies:: COVID 19 test Stand-Alone Forms: [facility] Medical, Smoking Cessation Medications and DC Order Prescriptions: New dextromethorphan-guaifenesin 5-50 mg/5 mL liquid 20 ml PO Q6H PRN (Reason: cough) Qty: 237 RF: 0 Continued clopidogrel [Plavix] 75 mg Tablet 75 mg PO DAILY RF: 0 furosemide [Lasix] 20 mg Tablet 20 mg PO DAILY RF: 0 losartan 100 mg Tablet 100 mg PO DAILY RF: 0 amlodipine 10 mg Tablet 10 mg PO DAILY RF: 0 albuterol sulfate 90 mcg/actuation Hfa Aerosol Inhaler 2 puff INHALATION Q4H PRN (Reason: Wheezing) RF: 0 atorvastatin 40 mg Tablet 40 mg PO QAM Qty: 30 RF: 0 carvedilol 25 mg Tablet 25 mg PO DAILY RF: 0 pantoprazole 20 mg Tablet,Delayed Release (Dr/Ec) 20 mg PO DAILY RF: 0 terazosin 2 mg Capsule 2 mg PO HS RF: 0 famotidine 40 mg tablet 40 mg PO HS Qty: 30 RF: 5 carvedilol 25 mg Tablet 12.5 mg PO PM RF: 0 fluticasone propion-salmeterol [Wixela Inhub] 100-50 mcg/dose blister with device 1 inh INHALATION BID RF: 0 Discharge Orders: Discharge Order (Routine); Ordered 11/16/19 Ordered By: Fozia Marinelli/Other Patient Handouts: COVID-19 Home Care, How COVID-19 Spreads Admission Data Admit Date/Time: 11/14/19 18:13 Attending Provider: Fozia Feliciano I. Admit Provider: Fozia Feliciano I. Primary Care Provider: Richard Domínguez Other Providers: Fozia Feliciano I. Other Interventions: Discharge Summary Assessment (RN) Last Done: 11/16/19 12:00 DC Date/Time DO NOT enter until pt leaves facility: 11/16/19 12:45
--- NOTE | 2019-11-24 09:15 | Coding Query ---
CODING QUERY To promote full compliance with coding requirements relating to patient care, provider participation is requested in all cases of employment officer uncertainty. Please assist us with the question(s) below: Coding Question(s): THE FOLLOWING WAS DOCUMENTED AT THE BEGINNING OF THE PATIENTS STAY AND NOT ON THE DISCHARGE SUMMARY: Possible Inflammatory/infectious process such as sepsis vs Fever of unknown origin Please clarify the diagnosis of Sepsis below Physician's Response(s): ( ) Sepsis POA (X) Sepsis Ruled out ( ) Other please specify: Thank you Diane Moscoso Principal Diagnosis: "that condition established after study, to be chiefly responsible for occasioning the admission of the patient to the hospital for care." Co-Existing Principal Diagnosis: "when two or more diagnoses equally meet the criteria for principal diagnosis as determined by the circumstances of admission, diagnostic work up, and/or therapy provided, and the Alphabetic Index, Tabular List, or another coding guideline does not provide sequencing direction, any one of the diagnoses may be sequenced first." "When the physician has documented what appears to be a current diagnosis in the body of the record, but has not included the diagnosis in the final diagnostic statement, the physician should be asked whether the diagnosis should be added." (Source [facility]oding [facility] 2 QTR90. p3-4) YAMIL
== END 2019-11-16 12:45 | disposition home or self-care (01) | DRG 203 ==
LOC: ED 15:01 → 2S 18:13

== ENCOUNTER 2021-01-14 21:45 | Inpatient (IN) ==
[2021-01-14] MEDS ORDERED: dexAMETHasone**PF** 10 MG/ML VIAL IV ONE (22:09)
[2021-01-14] MEDS ORDERED: ALBUT/IPRATROP 3MG/0.5MG NEB 3 ML VIAL INH STA (22:09)
--- NOTE | 2021-01-14 22:15 | Emergency Department Note ---
Impression & Plan Respiratory distress, SOB (shortness of breath), Pneumonia, COVID-19 ED Provider Note NAME: MARY SÁNCHEZ AGE: 80 SEX: M : 1940 ARRIVES VIA: Walk-In INFORMANT: [Patient] ED PROVIDER(S): [Sawyer Edwards MD] CHIEF COMPLAINT: Chest pain and short of breath HISTORY OF PRESENT ILLNESS: The patient is a 80-year-old male who has had 1 week of symptoms. He has had a cough that has been occasionally productive. He has had some chills. He has had some chest discomfort and some dry heaving. No fever. He has felt short of breath. Things have worsened. He tried his nebulizer at home but it really did not help. The patient is worried he may have pneumonia. He is not too concerned about COVID-19, he is not vaccinated. He has no known exposures. The patient does not wear oxygen. He smoked a long time ago, he states that he was never diagnosed with COPD--although, COPD is listed in his past history. REVIEW OF SYSTEMS: See HPI for pertinent positives and negatives. A total of ten systems were reviewed and were otherwise negative. PMHx/PSHx: See Below SOCIAL HISTORY: See Below. PHYSICAL EXAM: GENERAL: Patient is in mild respiratory distress. HEENT: No acute trauma, normocephalic atraumatic, mucous membranes moist, no nasal congestion, no scleral icterus. NECK: No stridor, no adenopathy, no meningismus, trachea is midline. LUNGS: Patient appears in mild respiratory distress. He is wheezing. He has an increased respiratory rate. He speaks in shorter sentences. HEART: Without murmurs gallops or rubs, regular rate and rhythm. ABDOMEN: Soft, nontender, bowel sounds positive, no hernias, no peritonitis. EXTREMITIES: No cyanosis or edema, full range of motion of all the joints without pain or difficulty, no signs for acute trauma. NEUROLOGIC: Oriented x 3, no acute motor or sensory deficits, no focal weakness. SKIN: No rash, no jaundice, no diaphoresis. DIFFERENTIAL DIAGNOSIS: Reactive airway disease, pneumonia, pneumothorax, COPD, COVID-19, CHF, infection, cardiac ischemia, pulmonary embolism, bronchitis, musculoskeletal, gastrointestinal, as well as other pathologies. EMERGENCY DEPARTMENT COURSE/PROCEDURES: ECG: Indication was chest pain with shortness of breath. ECG shows a normal sinus rhythm with a rate of 70. There is a potential old septal infarct. There is no ST elevation, no PVCs. The QTc is 427. Continuous Cardiac Monitoring: An order was placed for continuous cardiac monitoring. The monitor shows a rate of 74 with normal sinus rhythm. Critical Care Note: I have personally spent 54 minutes of critical care time in the direct management of this patient. This includes bedside care, interpretation of diagnostic studies, and testing, discussion with consultants, patient, and family members, and other required patient management activities. This 54 minutes is in excess of all separately billable procedures. MEDICAL DECISION MAKING: There is no leukocytosis or concerning anemia. There is a normal platelet count. No coagulopathy. No significant electrolyte abnormality or kidney failure. No concerning liver enzyme elevation. BNP is not elevated making fluid overload less likely. ECG shows a normal sinus rhythm, no acute ischemia. Cardiac enzyme testing x1 is not consistent with acute cardiac injury. Covid testing returned positive. Chest film shows bilateral lower lobe pneumonia, worse on the left. On exam, the patient appeared somewhat short of breath and seem to be in mild respiratory distress. He was wheezing quite a bit. Patient was given IV ceftriaxone as empiric antibiotic coverage. He was given 2 duo nebs. He was given IV Decadron. The patient has made some improvement. He does seem a bit more comfortable. He appears to have Covid pneumonia as the cause for his dyspnea. I believe hospitalization is warranted. I did speak with the patient and case management. The on-call hospitalist was consulted. Past Med/Surg History Medical History Carotid artery stenosis Cerebrovascular disease (Unknown) COPD (chronic obstructive pulmonary disease) Coronary artery disease cath [facility] [place] 03/11/19 nonocclusive 30-40% stenoses left circ GERD (gastroesophageal reflux disease) Hypertension Mild intermittent asthma VALARIE (obstructive sleep apnea) Surgical History Traumatic enucleation of right eye Family History Other Medical history non-contributory Social History Smoking Status: Never smoker Years Smoked: 4; Second Hand Exposure: No; Hx Alcohol Use: No Hx Substance Use: No Preferred Language: Slovenian Communication Ability: Effective State [employer] 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 Director Required: No Beliefs That Will Affect Care: None marital status: marital status details: 51 years Current Living Situation: Spouse Current Living Situation Comment: Lives with spouse, does not need any assistance with ADL's current occupational status: retired Feels Safe at Home: Yes during the past year weight has: remained stable Assistive Devices: None, Denture - Upper and Denture - Lower Allergies Allergies Allergy/AdvReac Type Severity Reaction Status Date / Time No Known Allergies Allergy Unverified 01/14/21 22:36 Home Meds Home Medications Medication Instructions Recorded Confirmed albuterol sulfate 90 mcg/actuation 2 puff INHALATION Q4H PRN 03/10/19 01/14/21 aerosol inhaler amlodipine 10 mg tablet 10 mg PO DAILY 03/10/19 01/14/21 clopidogrel 75 mg tablet (Plavix) 75 mg PO DAILY 03/10/19 01/14/21 furosemide 20 mg tablet (Lasix) 20 mg PO DAILY 03/10/19 01/14/21 losartan 100 mg tablet 100 mg PO DAILY 03/10/19 01/14/21 carvedilol 25 mg tablet 25 mg PO QAM 04/16/19 01/14/21 pantoprazole 20 mg tablet,delayed 20 mg PO DAILY 04/16/19 01/14/21 release terazosin 2 mg capsule 2 mg PO HS 04/16/19 01/14/21 carvedilol 25 mg tablet 12.5 mg PO PM 11/14/19 01/14/21 fluticasone 100 mcg-salmeterol 50 1 inh INHALATION BID 01/14/21 01/14/21 mcg/dose blistr powdr for inhalation (Advair Diskus) Previous Rx's Medication Instructions Recorded atorvastatin 40 mg tablet 40 mg PO QAM #30 tab 03/12/19 Results & Data (ED) Vital Signs Vital Signs - 24 hr 01/14/21 20:14 01/14/21 21:49 01/14/21 21:52 Temperature 37.4 C Temperature Source Temporal Artery Scan Pulse Rate 64 74 Pulse Rate [Apical] Pulse Rate from SpO2 Sensor Respiratory Rate 24 28 H Respiratory Effort / Characteristics Spontaneous Labored Respiratory Depth Shallow Blood Pressure 119/91 129/77 Blood Pressure [Right Arm] Blood Pressure Mean 100 94 Blood Pressure Mean [Right Arm] Pulse Oximetry 93 Oxygen Delivery Method Room Air Oxygen Flow Rate Sepsis Recent Fever Within 48 Hours No Sepsis New/Unexplained Change in Mental Status N/A Sepsis Action Taken by Nursing No Action Required 01/14/21 22:56 01/14/21 23:46 01/15/21 00:05 Temperature Temperature Source Pulse Rate Pulse Rate [Apical] 67 61 66 Pulse Rate from SpO2 Sensor Respiratory Rate 22 24 19 Respiratory Effort / Characteristics Spontaneous Short of Breath Spontaneous Short of Breath Spontaneous Respiratory Depth Blood Pressure Blood Pressure [Right Arm] 150/73 H Blood Pressure Mean Blood Pressure Mean [Right Arm] 98 Pulse Oximetry 93 96 90 Oxygen Delivery Method Room Air Room Air Room Air Oxygen Flow Rate Sepsis Recent Fever Within 48 Hours Sepsis New/Unexplained Change in Mental Status Sepsis Action Taken by Nursing 01/15/21 00:07 01/15/21 00:54 01/15/21 01:16 Temperature Temperature Source Pulse Rate 65 Pulse Rate [Apical] 67 62 Pulse Rate from SpO2 Sensor 65 Respiratory Rate 17 22 26 H Respiratory Effort / Characteristics Spontaneous Non-Labored Spontaneous Respiratory Depth Normal Normal Blood Pressure 134/80 Blood Pressure [Right Arm] Blood Pressure Mean 98 Blood Pressure Mean [Right Arm] Pulse Oximetry 92 94 96 Oxygen Delivery Method Room Air Nasal Cannula Nasal Cannula Oxygen Flow Rate 2 2 Sepsis Recent Fever Within 48 Hours Sepsis New/Unexplained Change in Mental Status Sepsis Action Taken by [facility] Medications Current Medication List: was personally reviewed by me Laboratory Data Attestation: I reviewed the patient's lab results. Result diagrams: 01/14/21 22:49 01/14/21 22:49 Lab Results 01/14/21 01/14/21 01/14/21 Range/Units 22:49 22:49 22:49 WBC 6.87 (4.8-10.8) K/uL RBC 4.66 L (4.7-6.1) M/uL Hgb 14.3 (14.0-18.0) g/dL Hct 42.4 (42-52) % MCV 91.0 (80-100) fL MCH 30.7 (25-34) pg MCHC 33.7 (32-36) g/dL RDW Std Deviation 47.9 H (36.4-46.3) fL RDW Coeff of Tay 14.3 (11.5-14.5) % Plt Count 168 (130-400) K/uL MPV 11.3 H (7.4-10.4) fL Immature Gran % (Auto) 0.1 % Neut % (Auto) 84.1 % Lymph % (Auto) 8.6 % Rich % (Auto) 6.8 % Eos % (Auto) 0.1 % Baso % (Auto) 0.3 % Neut # (Auto) 5.77 (1.4-6.5) K/uL Lymph # (Auto) 0.59 L (1.2-3.4) K/uL Rich # (Auto) 0.47 (0.11-0.59) K/uL Eos # (Auto) 0.01 (0-0.5) K/uL Baso # (Auto) 0.02 (0-0.2) K/uL Immature Gran # (Auto) 0.01 (0.00-0.02) K/uL Giant Platelets 1+ PT 9.8 (9.0-12.0) Seconds INR 1.0 (0.9-1.1) APTT 25.2 (21.0-31.0) Seconds PTT Ratio 1.0 Sodium 139 (136-145) mmol/L Potassium 3.7 (3.5-5.1) mmol/L Chloride 105 (98-107) mmol/L Carbon Dioxide 26 (21-32) mmol/L Anion Gap 8.0 (3-11) BUN 15 (7-18) mg/dl Creatinine 1.26 (0.6-1.4) mg/dl Est Cr Clr Drug Dosing 45.8 ml/min Est GFR ( Amer) 62.9 ml/min Est GFR (Non-Af Amer) 54.3 ml/min BUN/Creatinine Ratio 11.6 (10-20) Glucose 125 H (70-99) mg/dl Lactate (0.4-2.0) mmol/L Calcium 8.2 L (8.5-10.1) mg/dl Magnesium 2.0 (1.8-2.4) mg/dl Total Bilirubin 0.5 (0.2-1) mg/dl AST 53 H (15-37) U/L ALT 48 (12-78) U/L Alkaline Phosphatase 111 (45-117) U/L Troponin I < 0.015 (0-0.045) ng/ml NT-Pro-B Natriuret Pep 447 (0-1800) pg/ml Total Protein 7.1 (6.4-8.2) gm/dl Albumin 3.1 L (3.4-5.0) gm/dl Globulin 4.0 (2.5-4.0) gm/dl Albumin/Globulin Ratio 0.8 L (0.9-2) Specimen Hemolysis COVID-19 Eval Order SARS-CoV-2 (PCR) (Negative) 01/14/21 01/14/21 01/14/21 Range/Units 22:50 22:50 23:10 WBC (4.8-10.8) K/uL RBC (4.7-6.1) M/uL Hgb (14.0-18.0) g/dL Hct (42-52) % MCV (80-100) fL MCH (25-34) pg MCHC (32-36) g/dL RDW Std Deviation (36.4-46.3) fL RDW Coeff of Tay (11.5-14.5) % Plt Count (130-400) K/uL MPV (7.4-10.4) fL Immature Gran % (Auto) % Neut % (Auto) % Lymph % (Auto) % Rich % (Auto) % Eos % (Auto) % Baso % (Auto) % Neut # (Auto) (1.4-6.5) K/uL Lymph # (Auto) (1.2-3.4) K/uL Rich # (Auto) (0.11-0.59) K/uL Eos # (Auto) (0-0.5) K/uL Baso # (Auto) (0-0.2) K/uL Immature Gran # (Auto) (0.00-0.02) K/uL Giant Platelets PT (9.0-12.0) Seconds INR (0.9-1.1) APTT (21.0-31.0) Seconds PTT Ratio Sodium (136-145) mmol/L Potassium (3.5-5.1) mmol/L Chloride (98-107) mmol/L Carbon Dioxide (21-32) mmol/L Anion Gap (3-11) BUN (7-18) mg/dl Creatinine (0.6-1.4) mg/dl Est Cr Clr Drug Dosing ml/min Est GFR ( Amer) ml/min Est GFR (Non-Af Amer) ml/min BUN/Creatinine Ratio (10-20) Glucose (70-99) mg/dl Lactate 1.9 (0.4-2.0) mmol/L Calcium (8.5-10.1) mg/dl Magnesium (1.8-2.4) mg/dl Total Bilirubin (0.2-1) mg/dl AST (15-37) U/L ALT (12-78) U/L Alkaline Phosphatase (45-117) U/L Troponin I (0-0.045) ng/ml NT-Pro-B Natriuret Pep (0-1800) pg/ml Total Protein (6.4-8.2) gm/dl Albumin (3.4-5.0) gm/dl Globulin (2.5-4.0) gm/dl Albumin/Globulin Ratio (0.9-2) Specimen Hemolysis COVID-19 Eval Order Covid19 at [facility] [place] SARS-CoV-2 (PCR) POSITIVE A* (Negative) Administered Medications Discontinued Medications Albuterol (Albut/Ipratrop 3mg/0.5mg Neb 3 Ml Vial) 3 ml INH NOW STA Stop: 01/14/21 22:10 Last Admin: 01/14/21 22:55 Dose: 3 ml Documented by: [id number] Albuterol (Albut/Ipratrop 3mg/0.5mg Neb 3 Ml Vial) 3 ml NEB NOW STA Stop: 01/14/21 23:19 Last Admin: 01/14/21 23:44 Dose: 3 ml Documented by: [id number] Dexamethasone Sodium Phosphate (DexamethasonePf 10 Mg/Ml Vial) 6 mg IV NOW ONE Stop: 01/14/21 22:10 Last Admin: 01/14/21 22:53 Dose: 6 mg Documented by: [id number] Ceftriaxone Sodium (Rocephin) 1,000 mg in 50 mls @ 100 mls/hr IV NOW STA Stop: 01/15/21 00:22 Last Infusion: 01/15/21 00:30 Dose: 0 mls/hr Documented by: [id number] Admin: 01/15/21 00:04 Dose: 100 mls/hr Documented by: [id number] Imaging Data Attestation: I personally reviewed and interpreted this imaging study as follows: My Impression: Chest x-ray: Per my review there are bilateral lower lobe infiltrates, worse on the left. There is no pneumothorax, no CHF. Discharge Plan Visit Data Chief Complaint: Chest Pain Stated Complaint: CHEST PAIN, DIFFICULTY BREATHING, POSSIBLE COVID ED Provider: Sawyer Edwards Discharge Problem: Respiratory distress, SOB (shortness of breath), Pneumonia, COVID-19 Patient Disposition: Admitted As Inpatient Condition: Fair Forms Stand Alone Forms: My [facility] Prescriptions Prescriptions: No Action clopidogrel [Plavix] 75 mg Tablet 75 mg PO DAILY RF: 0 furosemide [Lasix] 20 mg Tablet 20 mg PO DAILY RF: 0 losartan 100 mg Tablet 100 mg PO DAILY RF: 0 amlodipine 10 mg Tablet 10 mg PO DAILY RF: 0 albuterol sulfate 90 mcg/actuation Hfa Aerosol Inhaler 2 puff INHALATION Q4H PRN (Reason: Wheezing) RF: 0 atorvastatin 40 mg Tablet 40 mg PO QAM Qty: 30 RF: 0 carvedilol 25 mg Tablet 25 mg PO QAM RF: 0 pantoprazole 20 mg Tablet,Delayed Release (Dr/Ec) 20 mg PO DAILY RF: 0 terazosin 2 mg Capsule 2 mg PO HS RF: 0 carvedilol 25 mg Tablet 12.5 mg PO PM RF: 0 fluticasone propion-salmeterol [Advair Diskus] 100-50 mcg/dose blister with device 1 inh INHALATION BID RF: 0 Referrals Referrals: PCP,NO [Primary Care Provider] -
[2021-01-14 23:09] LABS: Basophils # (auto) 0.02 K/uL (0-0.2); Basophils % (auto) 0.3 %; Eosinophils # (auto) 0.01 K/uL (0-0.5); Eosinophils % (auto) 0.1 %; Hematocrit (blood only) 42.4 % (42-52); Hemoglobin 14.3 g/dL (14.0-18.0); Immature Granulocytes # (auto) 0.01 K/uL (0.00-0.02); Immature Granulocytes % (auto) 0.1 %; Lymphocytes # (auto) 0.59 K/uL (1.2-3.4); Lymphocytes % (auto) 8.6 %; Mean Corpuscular Hemoglobin 30.7 pg (25-34); Mean Corpuscular Hgb Conc 33.7 g/dL (32-36); Mean Platelet Volume 11.3 fL (7.4-10.4); Monocytes # (auto) 0.47 K/uL (0.11-0.59); Monocytes % (auto) 6.8 %; Neutrophils # (auto) 5.77 K/uL (1.4-6.5); Neutrophils % (auto) 84.1 %; Platelet Count 168 K/uL (130-400); RDW Coefficient of Variation 14.3 % (11.5-14.5); RDW Standard Deviation 47.9 fL (36.4-46.3); Red Blood Count 4.66 M/uL (4.7-6.1); White Blood Count 6.87 K/uL (4.8-10.8)
[2021-01-14] MEDS ORDERED: ALBUT/IPRATROP 3MG/0.5MG NEB 3 ML VIAL NEB STA (23:18)
[2021-01-14 23:25] LABS: Partial Thromboplastin Time 25.2 Seconds (21.0-31.0); Prothrombin Time 9.8 Seconds (9.0-12.0)
[2021-01-14 23:28] LABS: Alanine Aminotransferase 48 U/L (12-78); Albumin Level 3.1 gm/dl (3.4-5.0); Aspartate Aminotransferase 53 U/L (15-37); BUN Creatinine Ratio 11.6 (10-20); Blood Urea Nitrogen 15 mg/dl (7-18); Calcium 8.2 mg/dl (8.5-10.1); Carbon Dioxide 26 mmol/L (21-32); Chloride 105 mmol/L (98-107); Creatinine Clr Calc Pharmacy 45.8 ml/min; Est GFR (African American) 62.9 ml/min; Est GFR (Non-African American) 54.3 ml/min; Glucose 125 mg/dl (70-99); Potassium 3.7 mmol/L (3.5-5.1); Sodium 139 mmol/L (136-145)
[2021-01-14 23:38] LABS: Albumin Globulin Ratio 0.8 (0.9-2); Alkaline Phosphatase 111 U/L (45-117); Bilirubin,Total 0.5 mg/dl (0.2-1); NT Pro B Type Natriuretic Pept 447 pg/ml (0-1800); Total Protein 7.1 gm/dl (6.4-8.2); Troponin I < 0.015 ng/ml (0-0.045)
[2021-01-14] MEDS ORDERED: cefTRIAXone SODIUM 1,000 MG/50 ML BAG IV STA (23:53)
[2021-01-15 00:02] LABS: Giant Platelets 1+
[2021-01-15] MEDS ORDERED: guaiFENesin 600 MG TABCR PO STA (01:44)
--- NOTE | 2021-01-15 01:44 | History & Physical Report ---
Date of Service January 15, 2021 Assessment & Plan (1) COVID-19: Plan: Severe COVID-19 pneumonia O2 sats less than 94 at the ER Possible asthma/COPD exacerbation given pronounced wheezing on examination Hypertension, elevated secondary to discomfort/illness hx nonocclusive CAD hyperlipidemia on statin Rx past tobacco abuse Medical telemetry Decadron, Remdesivir for severe COVID-19 pneumonia (Patient was counseled regarding potential adverse effects from Remdesivir therapy and provided with patient education sheet.) MDI RTC for bronchospasm No indication for antibiotic Rx currently. Pulmonary consult if without improvement Facilitate home BP meds DVT prophylaxis. Lovenox subcu Full code Text document was generated using [employer] voice recognition software. It may contain grammatical or spelling errors. Kindly contact undersigned for clarification of any documentation item in question. History of Present Illness Chief Complaint: Cough, shortness of breath Primary Care Provider: Wilma Mccracken [facility] Practice History obtained from patient and records. Medical history significant for nonocclusive CAD, PVD status post surgery, hypertension, hyperlipidemia, asthma/COPD/VALARIE (CPAP noncompliance) as per records, GERD, past tobacco abuse. Last confinement November 2019 for bronchitis. 1 week history dry cough symptoms with chest discomfort from coughing. Associated chills. recently confined for COVID-19 pneumonia. Patient and have not received COVID-19 vaccination. Poor appetite at home. Lowest O2 sats at the ER 90 on room air. Decadron and neb treatment given at the ER. Patient feeling a little better since arrival. 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 Allergies Allergy/AdvReac Type Severity Reaction Status Date / Time No Known Allergies Allergy Unverified 01/14/21 22:36 Home Medications Medication Instructions Recorded Confirmed Type albuterol sulfate 90 mcg/actuation 2 puff INHALATION Q4H PRN 03/10/19 01/14/21 History aerosol inhaler amlodipine 10 mg tablet 10 mg PO DAILY 03/10/19 01/14/21 History clopidogrel 75 mg tablet (Plavix) 75 mg PO DAILY 03/10/19 01/14/21 History furosemide 20 mg tablet (Lasix) 20 mg PO DAILY 03/10/19 01/14/21 History losartan 100 mg tablet 100 mg PO DAILY 03/10/19 01/14/21 History atorvastatin 40 mg tablet 40 mg PO QAM #30 tab 03/12/19 01/14/21 Rx carvedilol 25 mg tablet 25 mg PO QAM 04/16/19 01/14/21 History pantoprazole 20 mg tablet,delayed 20 mg PO DAILY 04/16/19 01/14/21 History release terazosin 2 mg capsule 2 mg PO HS 04/16/19 01/14/21 History carvedilol 25 mg tablet 12.5 mg PO PM 11/14/19 01/14/21 History fluticasone 100 mcg-salmeterol 50 1 inh INHALATION BID 01/14/21 01/14/21 History mcg/dose blistr powdr for inhalation (Advair Diskus) Past Med/Surg History Medical History Carotid artery stenosis Cerebrovascular disease (Unknown) COPD (chronic obstructive pulmonary disease) Coronary artery disease cath [facility] 03/11/19 nonocclusive 30-40% stenoses left circ GERD (gastroesophageal reflux disease) Hypertension Mild intermittent asthma VALARIE (obstructive sleep apnea) Surgical History Traumatic enucleation of right eye Family History Other Medical history non-contributory Social History Smoking Status: Former smoker Years Smoked: 4; Second Hand Exposure: No; Hx Alcohol Use: No Hx Substance Use: No Preferred Language: Rwandan Communication Ability: Effective Terra[employer] Helper Required: No Beliefs That Will Affect Care: None marital status: marital status details: 51 years Current Living Situation: Spouse Current Living Situation Comment: Lives with spouse, does not need any assistance with ADL's current occupational status: retired Other Information That Helps Us Care for You: No Feels Safe at Home: Yes Safety Concerns: Feels Safe At This Time during the past year weight has: remained stable Assistive Devices: Denture - Upper and Denture - Lower Review of Systems Review of Systems: As per HPI, all 10 systems reviewed, all other ROS negative Physical Exam Physical Exam: GENERAL: Slightly uncomfortable, minimal respiratory distress, obese, dysphonic SKIN: Normal color, warm HEENT: Alopecia, [place] palpebral conjunctivae, no ptosis, dry buccal mucosa, na alannah cannula in place NECK : Supple, short neck, no tenderness CHEST : Decreased breath sounds, expiratory wheezes, no tenderness HEART : RRR, no obvious murmurs ABDOMEN: Some distention, nontender EXTREMITIES : No LE swelling/tenderness, no other conspicuous deformities noted NEUROLOGIC : Coherent, no facial asymmetry, no other gross focality Results & Data Results & Data ([facility]) Vital Signs (Past 12 Hours) Vital Signs Temp Pulse Pulse Resp BP BP Pulse Ox 01/15/21 01:16 65 26 H 134/80 96 01/15/21 00:54 62 22 94 01/15/21 00:07 67 17 92 01/15/21 00:05 66 19 150/73 H 90 01/14/21 23:46 61 24 96 01/14/21 22:56 67 22 93 01/14/21 21:49 37.4 C 74 28 H 129/77 93 01/14/21 20:14 64 24 119/91 Laboratory Results Laboratory Results WBC 6.87 K/uL (4.8-10.8) 01/14/21 22:49 RBC 4.66 M/uL (4.7-6.1) L 01/14/21 22:49 Hgb 14.3 g/dL (14.0-18.0) 01/14/21 22:49 Hct 42.4 % (42-52) 01/14/21 22:49 MCV 91.0 fL (80-100) 01/14/21 22:49 MCH 30.7 pg (25-34) 01/14/21 22:49 MCHC 33.7 g/dL (32-36) 01/14/21 22:49 RDW Std Deviation 47.9 fL (36.4-46.3) H 01/14/21 22:49 RDW Coeff of Tay 14.3 % (11.5-14.5) 01/14/21 22:49 Plt Count 168 K/uL (130-400) 01/14/21 22:49 MPV 11.3 fL (7.4-10.4) H 01/14/21 22:49 Immature Gran % (Auto) 0.1 % 01/14/21 22:49 Neut % (Auto) 84.1 % 01/14/21 22:49 Lymph % (Auto) 8.6 % 01/14/21 22:49 [place] % (Auto) 6.8 % 01/14/21 22:49 Eos % (Auto) 0.1 % 01/14/21 22:49 Baso % (Auto) 0.3 % 01/14/21 22:49 Neut # (Auto) 5.77 K/uL (1.4-6.5) 01/14/21 22:49 Lymph # (Auto) 0.59 K/uL (1.2-3.4) L 01/14/21 22:49 [place] # (Auto) 0.47 K/uL (0.11-0.59) 01/14/21 22:49 Eos # (Auto) 0.01 K/uL (0-0.5) 01/14/21 22:49 Baso # (Auto) 0.02 K/uL (0-0.2) 01/14/21 22:49 Immature Gran # (Auto) 0.01 K/uL (0.00-0.02) 01/14/21 22:49 Giant Platelets 1+ 01/14/21 22:49 PT 9.8 Seconds (9.0-12.0) 01/14/21 22:49 INR 1.0 (0.9-1.1) 01/14/21 22:49 APTT 25.2 Seconds (21.0-31.0) 01/14/21 22:49 PTT Ratio 1.0 01/14/21 22:49 Sodium 139 mmol/L (136-145) 01/14/21 22:49 Potassium 3.7 mmol/L (3.5-5.1) 01/14/21 22:49 Chloride 105 mmol/L (98-107) 01/14/21 22:49 Carbon Dioxide 26 mmol/L (21-32) 01/14/21 22:49 Anion Gap 8.0 (3-11) 01/14/21 22:49 BUN 15 mg/dl (7-18) 01/14/21 22:49 Creatinine 1.26 mg/dl (0.6-1.4) 01/14/21 22:49 Est Cr Clr Drug Dosing 45.8 ml/min 01/14/21 22:49 Est GFR ( Amer) 62.9 ml/min 01/14/21 22:49 Est GFR (Non-Af Amer) 54.3 ml/min 01/14/21 22:49 BUN/Creatinine Ratio 11.6 (10-20) 01/14/21 22:49 Glucose 125 mg/dl (70-99) H 01/14/21 22:49 Lactate 1.9 mmol/L (0.4-2.0) 01/14/21 23:10 Calcium 8.2 mg/dl (8.5-10.1) L 01/14/21 22:49 Magnesium 2.0 mg/dl (1.8-2.4) 01/14/21 22:49 Total Bilirubin 0.5 mg/dl (0.2-1) 01/14/21 22:49 AST 53 U/L (15-37) H 01/14/21 22:49 ALT 48 U/L (12-78) 01/14/21 22:49 Alkaline Phosphatase 111 U/L (45-117) 01/14/21 22:49 Troponin I < 0.015 ng/ml (0-0.045) 01/14/21 22:49 NT-Pro-B Natriuret Pep 447 pg/ml (0-1800) 01/14/21 22:49 Total Protein 7.1 gm/dl (6.4-8.2) 01/14/21 22:49 Albumin 3.1 gm/dl (3.4-5.0) L 01/14/21 22:49 Globulin 4.0 gm/dl (2.5-4.0) 01/14/21 22:49 Albumin/Globulin Ratio 0.8 (0.9-2) L 01/14/21 22:49 Specimen Hemolysis 01/14/21 22:49 COVID-19 Eval Order Covid19 at [facility] 01/14/21 22:50 SARS-CoV-2 (PCR) POSITIVE (Negative) A* 01/14/21 22:50 Diagnostic Findings Chest x-ray as per my interpretation bibasilar opacities EKG as per my interpretation : Rate 70, NSR, normal axis, T wave abnormality septal leads
[2021-01-15] MEDS ORDERED: ALBUTEROL HFA 8 GM INHALER INH ONE (01:46)
[2021-01-15] MEDS ORDERED: REMDESIVIR 200 MG in SODIUM CHLORIDE 0.9% 210 ML IV STA (01:52)
[2021-01-15] MEDS ORDERED: POTASSIUM CHLORIDE 40 MEQ in SODIUM CHLORIDE 0.9% 1000ML 1,000 ML IV ONE (01:55)
[2021-01-15] MEDS ORDERED: ACETAMINOPHEN 325 MG TAB PO PRN (03:16)
[2021-01-15] MEDS ORDERED: PROMETHAZINE HCL 12.5 MG in SODIUM CHLORIDE 0.9% 50 ML IV PRN (03:16)
[2021-01-15] MEDS ORDERED: PNEUMOCOCCAL POLYSACCHARIDES 25 MCG/0.5 ML VIAL/SYR IM ONE (03:20)
[2021-01-15] MEDS: SODIUM CHLORIDE 0.9% 10ML FLUSH IV SCH ×3 (03:25→20:33)
[2021-01-15] MEDS ORDERED: amLODIPine BESYLATE 5 MG TAB PO SCH ×2 (06:05→09:00)
[2021-01-15] MEDS ORDERED: dexAMETHasone 6 MG in SYRINGE 0 ML IV SCH ×2 (06:05→09:00)
[2021-01-15] MEDS: ALBUTEROL HFA 8 GM INHALER INH SCH ×4 (07:23→20:11)
[2021-01-15] MEDS: LOSARTAN POTASSIUM 50 MG TAB PO SCH (08:05)
[2021-01-15] MEDS: ATORVASTATIN 40 MG TAB PO SCH (08:06)
[2021-01-15] MEDS: carvediloL 6.25 MG TAB PO SCH ×2 (08:06→20:34)
[2021-01-15] MEDS: PANTOprazole 40 MG TAB PO SCH (08:06)
[2021-01-15] MEDS: CLOPIDOGREL BISULFATE 75 MG TAB PO SCH (08:06)
[2021-01-15] MEDS: FLUTICASONE/VILANTEROL 100/25MCG 14 PUFFS/INHALER INH SCH (08:07)
[2021-01-15] MEDS: ENOXAPARIN INJ 40 MG/0.4 ML SYR SQ SCH (08:07)
[2021-01-15 08:38] LABS: Basophils # (auto) 0.01 K/uL (0-0.2); Basophils % (auto) 0.2 %; Hematocrit (blood only) 43.9 % (42-52); Hemoglobin 14.8 g/dL (14.0-18.0); Immature Granulocytes # (auto) 0.01 K/uL (0.00-0.02); Immature Granulocytes % (auto) 0.2 %; Lymphocytes # (auto) 0.64 K/uL (1.2-3.4); Lymphocytes % (auto) 11.7 %; Mean Corpuscular Hemoglobin 30.8 pg (25-34); Mean Corpuscular Hgb Conc 33.7 g/dL (32-36); Mean Corpuscular Volume 91.5 fL (80-100); Mean Platelet Volume 11.7 fL (7.4-10.4); Monocytes # (auto) 0.19 K/uL (0.11-0.59); Monocytes % (auto) 3.5 %; Neutrophils # (auto) 4.64 K/uL (1.4-6.5); Neutrophils % (auto) 84.4 %; Platelet Count 160 K/uL (130-400); RDW Coefficient of Variation 14.1 % (11.5-14.5); RDW Standard Deviation 47.6 fL (36.4-46.3); White Blood Count 5.49 K/uL (4.8-10.8)
[2021-01-15 09:16] LABS: Calcium 8.5 mg/dl (8.5-10.1); Est GFR (African American) 62.9 ml/min; Est GFR (Non-African American) 54.3 ml/min
[2021-01-15 09:19] LABS: Albumin Globulin Ratio 0.7 (0.9-2); Bilirubin,Total 0.6 mg/dl (0.2-1); Globulin 4.4 gm/dl (2.5-4.0); Total Protein 7.4 gm/dl (6.4-8.2)
--- NOTE | 2021-01-15 09:50 | XRay Report ---
XR chest 1V portable HISTORY: Shortness of breath. COMPARISON: Chest 11/14/2019. FINDINGS: No pneumothorax. No pleural effusions. The heart remains mildly enlarged. There are patchy bibasilar airspace opacities. This is new from the prior study. No evidence for pulmonary edema. Old, healed left-sided rib fractures. IMPRESSION: Patchy bibasilar airspace opacities. This likely represents a viral pneumonia. ACT 112: Negative or not required by law. Electronically signed by: Marlon Lobo M.D. 01/15/2021 9:49 AM
--- NOTE | 2021-01-15 09:57 | Electrocardiogram Report ---
Test Reason : Blood Pressure : / mmHG Vent. Rate : 070 BPM Atrial Rate : 070 BPM P-R Int : 202 ms QRS Dur : 084 ms QT Int : 396 ms P-R-T Axes : 059 050 049 degrees QTc Int : 427 ms Normal sinus rhythm Normal ECG When compared with ECG of 14-NOV-2019 15:36, Premature atrial complexes are no longer Present Confirmed by Adarsh Medrano ([id number] on 01/15/2021 9:56:58 AM Referred By: REFERRED SELF Confirmed By:Adarsh Medrano
--- NOTE | 2021-01-15 16:55 | Hospitalist Progress Note ---
Date of Service January 15, 2021 Assessment & Plan (1) Pneumonia due to COVID-19 virus: Plan: Remdesivir, dexamethasone. Feels improved since admission yesterday. Cont oxygen supplementation and prone when able. 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 Presumed to be asthma versus COPD and contributing to shortness of breath. Continue bronchodilator therapy including treatments above. Follow-up with pulmonology and bring them on board if respiratory status worsens. (3) Hypertension: Plan: Dosage was decreased secondary to bradycardia. Blood pressure is increased as a result of this, but the steroid therapy, and the IV fluids that were given overnight. Will treat with additional hydralazine now and as needed hydralazine as needed. Continue supportive care. (4) Gram-positive cocci in clusters: Plan: Proven not MRSA by PCR. Empiric coverage with Rocephin pending further speciation and clarification of clinical picture. (5) DVT prophylaxis: Plan: Lovenox Full code Disposition-continue hospital status with plans for home when improved off oxygen. Loren Flanagan DO [facility] Hospitalist Admission and Anticipated Discharge Date Admission Date: January 15, 2021 Subjective 80 yo M admitted with covid pneumonia denies diarrhea, BASILIO, fevers or chills feels better than yesterday tolerating current medical therapy Review of Systems Review of Systems: At least ten systems were reviewed and negative except as indicated in HPI above. Physical Exam Physical Exam: CONSTITUTIONAL: WNWD, vitals as above, generally well- appearing EYES: normal n, no scleral icterus ENT: external ear and nose normal, MMM RESPIRATORY: rales/wheezing at bases bilaterally, no crackles, normal respiratory effort, increased conversational dyspnea CARDIOVASCULAR: regular rate and rhythm, S1 and 2 heard without murmurs, gallops or rubs, no JVD, no peripheral edema CHEST: inspection of chest was normal GASTROINTESTINAL: soft, protuberant, nontender, ND MUSCULOSKELETAL: strength 5/5 throughout, head is normocephalic and atraumatic SKIN: warm and dry NEUROLOGIC: CN 2-12 grossly intact, normal cognition, normal speech, no tremor, no gross focal deficits. PSYCHIATRIC: alert cooperative and oriented to person, place and time. Results & Data Results & Data ([facility]) Vital Signs (Past 12 Hours) Vital Signs Temp Pulse Pulse Resp BP Pulse Ox 01/15/21 16:00 59 L 01/15/21 15:35 36.5 C 66 20 160/76 H 92 01/15/21 15:11 70 26 H 90 01/15/21 14:35 65 18 170/79 H 90 01/15/21 11:22 72 24 93 01/15/21 08:00 64 01/15/21 07:23 76 26 H 94 01/15/21 07:14 36.5 C 71 21 202/85 H 97 Laboratory Results Short CBC 01/14/21 01/15/21 Range/Units 22:49 07:48 WBC 6.87 5.49 (4.8-10.8) K/uL Hgb 14.3 14.8 (14.0-18.0) g/dL Hct 42.4 43.9 (42-52) % Plt Count 168 160 (130-400) K/uL BMP 01/14/21 01/15/21 22:49 07:48 Sodium 139 139 Potassium 3.7 4.0 Chloride 105 106 Carbon Dioxide 26 26 BUN 15 13 Creatinine 1.26 1.26 Glucose 125 H 161 H Calcium 8.2 L 8.5 Cardiac Enzymes 01/14/21 Range/Units 22:49 Troponin I < 0.015 (0-0.045) ng/ml Liver Function 01/14/21 01/15/21 Range/Units 22:49 07:48 Total Bilirubin 0.5 0.6 (0.2-1) mg/dl AST 53 H 43 H (15-37) U/L ALT 48 49 (12-78) U/L Alkaline Phosphatase 111 131 H (45-117) U/L Albumin 3.1 L 3.0 L (3.4-5.0) gm/dl Medications Administered Current Inpatient Medications Acetaminophen (Acetaminophen 325 Mg Tab) 325 mg PO Q6H PRN PRN Reason: Mild Pain Stop: 02/14/21 03:15 Albuterol (Albuterol Hfa 8 Gm Inhaler) 2 puffs INH QIDR [facility] Stop: 02/14/21 06:59 Last Admin: 01/15/21 15:11 Dose: 2 puffs Documented by: Amlodipine Besylate (Amlodipine Besylate 5 Mg Tab) 10 mg PO DAILY [facility] Stop: 02/14/21 06:04 Last Admin: 01/15/21 07:29 Dose: 10 mg Documented by: Atorvastatin Calcium (Atorvastatin 40 Mg Tab) 40 mg PO QAM [facility] Stop: 02/14/21 08:59 Last Admin: 01/15/21 08:06 Dose: 40 mg Documented by: Carvedilol (Carvedilol 6.25 Mg Tab) 6.25 mg PO BID [facility] Stop: 02/14/21 08:59 Last Admin: 01/15/21 08:06 Dose: 6.25 mg Documented by: Clopidogrel Bisulfate (Clopidogrel Bisulfate 75 Mg Tab) 75 mg PO DAILY [facility] Stop: 02/14/21 08:59 Last Admin: 01/15/21 08:06 Dose: 75 mg Documented by: Enoxaparin Sodium (Enoxaparin Inj 40 Mg/0.4 Ml Syr) 40 mg SQ QAM [facility] Stop: 02/14/21 08:59 Last Admin: 01/15/21 08:07 Dose: 40 mg Documented by: Fluticasone/Vilanterol (Fluticasone/Vilanterol 100/25mcg 14 Puffs/Inhaler) 1 puffs INH DAILY [facility] Stop: 02/14/21 08:59 Last Admin: 01/15/21 08:07 Dose: 1 puffs Documented by: Guaifenesin (Guaifenesin 600 Mg Tabcr) 600 mg PO Q12 [facility] Stop: 02/14/21 20:59 Remdesivir 100 mg/ Sodium (Chloride) 250 mls @ 250 mls/hr IV Q24H [facility]; Protocol Stop: 01/18/21 20:59 Potassium Chloride 40 meq/ (Sodium Chloride) 1,020 mls @ 60 mls/hr IV .Q17H [facility] Stop: 01/15/21 18:54 Last Admin: 01/15/21 03:25 Dose: 60 mls/hr Documented by: Promethazine HCl 12.5 mg/ (Sodium Chloride) 50.5 mls @ 202 mls/hr IV Q6H PRN PRN Reason: Nausea And Vomiting Stop: 02/14/21 03:15 Dexamethasone 6 mg/ Syringe 1.5 mls @ 1 mls/min IV DAILY [facility] Stop: 02/14/21 06:04 Last Admin: 01/15/21 07:30 Dose: 1 mls/min Documented by: Losartan Potassium (Losartan Potassium 50 Mg Tab) 100 mg PO DAILY [facility] Stop: 02/14/21 08:59 Last Admin: 01/15/21 08:05 Dose: 100 mg Documented by: Pantoprazole Sodium (Pantoprazole 40 Mg Tab) 40 mg PO DAILY [facility] Stop: 02/14/21 08:59 Last Admin: 01/15/21 08:06 Dose: 40 mg Documented by: Sodium Chloride (Sodium Chloride 0.9% 10ml Flush) 30 ml IV Q24H [facility] Stop: 01/19/21 05:31 Last Admin: 01/15/21 05:52 Dose: 30 ml Documented by: Terazosin HCl (Terazosin Hcl 1 Mg Cap) 2 mg PO HS [facility] Stop: 02/14/21 20:59
[2021-01-15] MEDS ORDERED: hydrALAZINE HCL 20 MG/ML VIAL IV ONE (16:56)
[2021-01-15] MEDS: hydrALAZINE HCL 20 MG/ML VIAL IV PRN (18:30)
[2021-01-15] MEDS: REMDESIVIR 100 MG in SODIUM CHLORIDE 0.9% 230 ML IV SCH (19:30)
[2021-01-15] MEDS: TERAZOSIN HCL 1 MG CAP PO SCH (20:34)
[2021-01-15] MEDS: guaiFENesin 600 MG TABCR PO SCH (20:34)
[2021-01-15] MEDS: cefTRIAXone SODIUM 1,000 MG in DEXTROSE 5% 50 ML IV SCH (20:36)
[2021-01-16] MEDS: hydrALAZINE HCL 20 MG/ML VIAL IV PRN (00:27)
[2021-01-16] MEDS ORDERED: ALBUTEROL HFA 8 GM INHALER INH ONE (02:57)
[2021-01-16] MEDS ORDERED: dexAMETHasone 6 MG in SYRINGE 0 ML IV SCH (03:00)
[2021-01-16] MEDS: amLODIPine BESYLATE 5 MG TAB PO SCH ×2 (04:20→08:06)
[2021-01-16] MEDS: carvediloL 6.25 MG TAB PO SCH ×2 (04:21→20:49)
[2021-01-16 07:18] LABS: Estimated Average Glucose 131 mg/dl; Hemoglobin A1C 6.2 % (4.5-5.6)
[2021-01-16] MEDS: ALBUTEROL HFA 8 GM INHALER INH SCH ×4 (07:49→20:09)
[2021-01-16] MEDS: PANTOprazole 40 MG TAB PO SCH (08:06)
[2021-01-16] MEDS: ATORVASTATIN 40 MG TAB PO SCH (08:06)
[2021-01-16] MEDS: LOSARTAN POTASSIUM 50 MG TAB PO SCH (08:06)
[2021-01-16] MEDS: CLOPIDOGREL BISULFATE 75 MG TAB PO SCH (08:06)
[2021-01-16] MEDS: FLUTICASONE/VILANTEROL 100/25MCG 14 PUFFS/INHALER INH SCH (08:07)
[2021-01-16] MEDS: guaiFENesin 600 MG TABCR PO SCH ×2 (08:07→20:49)
[2021-01-16] MEDS: ENOXAPARIN INJ 40 MG/0.4 ML SYR SQ SCH (08:07)
[2021-01-16 08:10] LABS: Hematocrit (blood only) 43.5 % (42-52); Hemoglobin 14.7 g/dL (14.0-18.0); Mean Corpuscular Hemoglobin 30.4 pg (25-34); Mean Corpuscular Hgb Conc 33.8 g/dL (32-36); Mean Corpuscular Volume 90.1 fL (80-100); Platelet Count 190 K/uL (130-400); Red Blood Count 4.83 M/uL (4.7-6.1); White Blood Count 11.16 K/uL (4.8-10.8)
[2021-01-16 08:38] LABS: C Reactive Protein 6.37 mg/dl (0-0.29); Calcium 8.3 mg/dl (8.5-10.1); Creatinine Clr Calc Pharmacy 52.5 ml/min; Est GFR (African American) 73.3 ml/min; Est GFR (Non-African American) 63.3 ml/min
--- NOTE | 2021-01-16 09:45 | XRay Report ---
XR chest 1V portable HISTORY: Shortness of breath. Covid positive. COMPARISON: Chest 01/14/2021. FINDINGS: There are low lung volumes. No pneumothorax. No pleural effusions. The cardiac silhouette r emains borderline enlarged. There are patchy bibasilar airspace opacities, left greater than right. T his has slightly progressed in the interval. No evidence for pulmonary edema. IMPRESSION: Patchy bibasilar airspace opacities consistent with a viral pneumonia. This has slightly progressed i n the interval. ACT 112: Negative or not required by law. Electronically signed by: Marlon Lobo M.D. 01/16/2021 9:43 AM
--- NOTE | 2021-01-16 14:31 | Hospitalist Progress Note ---
Date of Service January 16, 2021 Assessment & Plan (1) Pneumonia due to COVID-19 virus: Plan: Continue with remdesivir/Decadron. Currently remains on 2 L of oxygen. Hemodynamically doing okay. WBC at 11.16. Remains afebrile Encourage incentive spirometer. 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 Presumed to be asthma versus COPD and contributing to shortness of breath. Continue bronchodilator therapy including treatments above. (3) Hypertension: Plan: Continue losartan 100 mg daily, amlodipine 10 mg daily and Coreg 6.25 mg twice daily Will treat with additional hydralazine now and as needed hydralazine as needed. Continue supportive care. (4) Gram-positive cocci in clusters: Plan: Proven not MRSA by PCR. We will continue ceftriaxone. Final sensitivities are pending. 05/09 bottle; likely contaminant. (5) DVT prophylaxis: Plan: Lovenox Full code Disposition-continue hospital status with plans for home when improved off oxygen. Admission and Anticipated Discharge Date Admission Date: January 15, 2021 Subjective Patient is doing okay this morning. Denies any significant respiratory symptoms. Denies feeling short of breath at the moment. However does have some cough. Other review of system is negative. Review of Systems Review of Systems: All systems reviewed & are unremarkable except as noted in HPI & below Physical Exam Physical Exam: General: A&Ox3 HENT: NCAT, MMM, EOMI Eyes: PERRLA Neck: Supple, normal range of motion CVS: normal rate and rhythm Resp: b/l good breath sounds Abdomen: Soft, ND/NT, +BS Extremities: No c/c/e Neuro: face symmetric, no focal deficit appreciated Skin: warm and dry, no rashes/lesions/errythema MSK: normal ROM, no joint swelling/erythema Results & Data Results & Data ([facility]) Vital Signs (Past 12 Hours) Vital Signs Temp Pulse Resp BP Pulse Ox 01/16/21 12:15 36.5 C 67 20 157/73 H 01/16/21 12:09 74 24 01/16/21 08:18 36.7 C 80 22 169/78 H 01/16/21 07:49 71 24 01/16/21 04:48 36.4 C L 70 24 160/71 H 01/16/21 03:24 76 28 H 92
[2021-01-16] MEDS: REMDESIVIR 100 MG in SODIUM CHLORIDE 0.9% 230 ML IV SCH (20:47)
[2021-01-16] MEDS: TERAZOSIN HCL 1 MG CAP PO SCH (20:49)
[2021-01-16] MEDS: cefTRIAXone SODIUM 1,000 MG in DEXTROSE 5% 50 ML IV SCH (21:42)
[2021-01-16] MEDS: SODIUM CHLORIDE 0.9% 10ML FLUSH IV SCH (21:43)
[2021-01-17] MEDS: hydrALAZINE HCL 20 MG/ML VIAL IV PRN (05:37)
[2021-01-17] MEDS: ALBUTEROL HFA 8 GM INHALER INH SCH ×4 (05:55→20:21)
[2021-01-17] MEDS ORDERED: ALBUTEROL HFA 8 GM INHALER INH ONE (06:00)
[2021-01-17] MEDS: dexAMETHasone 6 MG in SYRINGE 0 ML IV SCH (06:18)
[2021-01-17] MEDS: ENOXAPARIN INJ 40 MG/0.4 ML SYR SQ SCH (07:45)
[2021-01-17] MEDS: ATORVASTATIN 40 MG TAB PO SCH (07:45)
[2021-01-17] MEDS: CLOPIDOGREL BISULFATE 75 MG TAB PO SCH (07:45)
[2021-01-17] MEDS: FLUTICASONE/VILANTEROL 100/25MCG 14 PUFFS/INHALER INH SCH (07:45)
[2021-01-17] MEDS: guaiFENesin 600 MG TABCR PO SCH ×2 (07:45→20:44)
[2021-01-17] MEDS: amLODIPine BESYLATE 5 MG TAB PO SCH (07:46)
[2021-01-17] MEDS: PANTOprazole 40 MG TAB PO SCH (07:46)
[2021-01-17] MEDS: LOSARTAN POTASSIUM 50 MG TAB PO SCH (07:46)
[2021-01-17] MEDS: carvediloL 6.25 MG TAB PO SCH ×2 (07:47→20:44)
[2021-01-17 09:21] LABS: Basophils # (auto) 0.01 K/uL (0-0.2); Basophils % (auto) 0.1 %; Hematocrit (blood only) 42.1 % (42-52); Immature Granulocytes # (auto) 0.02 K/uL (0.00-0.02); Immature Granulocytes % (auto) 0.2 %; Lymphocytes # (auto) 0.77 K/uL (1.2-3.4); Lymphocytes % (auto) 6.1 %; Mean Corpuscular Hemoglobin 30.5 pg (25-34); Mean Corpuscular Hgb Conc 33.3 g/dL (32-36); Mean Corpuscular Volume 91.7 fL (80-100); Mean Platelet Volume 11.2 fL (7.4-10.4); Monocytes # (auto) 0.01 K/uL (0.11-0.59); Monocytes % (auto) 0.1 %; Neutrophils % (auto) 93.5 %; Platelet Count 218 K/uL (130-400); RDW Coefficient of Variation 14.4 % (11.5-14.5); RDW Standard Deviation 48.8 fL (36.4-46.3); Red Blood Count 4.59 M/uL (4.7-6.1); White Blood Count 12.71 K/uL (4.8-10.8)
[2021-01-17 09:55] LABS: Calcium 8.4 mg/dl (8.5-10.1); Creatinine Clr Calc Pharmacy 49.1 ml/min; Est GFR (African American) 67.4 ml/min; Est GFR (Non-African American) 58.2 ml/min; Potassium 3.8 mmol/L (3.5-5.1)
--- NOTE | 2021-01-17 13:55 | Hospitalist Progress Note ---
Date of Service January 17, 2021 Assessment & Plan (1) Pneumonia due to COVID-19 virus: Plan: Continue with remdesivir/Decadron. Currently remains on 2 L of oxygen. Hemodynamically doing okay. WBC at 12.71 in the setting of decadron. Remains afebrile Encourage incentive spirometer. 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 Presumed to be asthma versus COPD and contributing to shortness of breath. Continue bronchodilator therapy including treatments above. (3) Hypertension: Plan: Continue losartan 100 mg daily, amlodipine 10 mg daily and Coreg 6.25 mg twice daily Will treat with additional hydralazine now and as needed hydralazine as needed. Continue supportive care. (4) Gram-positive cocci in clusters: Plan: Proven not MRSA by PCR. Blood culture: Coag neg staph not lugdunensis, Gram positive cocci clusters D/C ceftriaxone and start cefazolin. Final sensitivities are pending. (5) DVT prophylaxis: Plan: Lovenox Full code Disposition-continue hospital status with plans for home when improved off oxygen. Admission and Anticipated Discharge Date Admission Date: January 15, 2021 Subjective Doing okay this morning. Reports he feels better. Denies any significant loss of breath or worsening cough. Remains afebrile and hemodynamically stable. Currently on 2 L of nasal cannula. Review of Systems Review of Systems: All systems reviewed & are unremarkable except as noted in HPI & below Physical Exam Physical Exam: General: A&Ox3 HENT: NCAT, MMM, EOMI Eyes: PERRLA Neck: Supple, normal range of motion CVS: normal rate and rhythm Resp: b/l good breath sounds Abdomen: Soft, ND/NT, +BS Extremities: No c/c/e Neuro: face symmetric, no focal deficit appreciated Skin: warm and dry, no rashes/lesions/errythema MSK: normal ROM, no joint swelling/erythema Results & Data Results & Data ([facility]) Vital Signs (Past 12 Hours) Vital Signs Temp Pulse Pulse Resp BP BP Pulse Ox 01/17/21 12:24 36.7 C 74 21 145/63 H 93 01/17/21 11:30 64 01/17/21 11:08 77 18 92 01/17/21 07:36 81 22 95 01/17/21 07:30 36.7 C 77 24 167/80 H 94 01/17/21 06:32 156/67 H 01/17/21 05:56 75 22 91 01/17/21 03:36 36.6 C 71 24 173/77 H 93
[2021-01-17] MEDS ORDERED: CEFAZOLIN INT VIT SCH (14:00)
[2021-01-17] MEDS: REMDESIVIR 100 MG in SODIUM CHLORIDE 0.9% 230 ML IV SCH (20:43)
[2021-01-17] MEDS: TERAZOSIN HCL 1 MG CAP PO SCH (20:44)
[2021-01-17] MEDS: ceFAZolin 2000MG 2,000 MG/15 ML SYR IV SCH (21:54)
[2021-01-17] MEDS: SODIUM CHLORIDE 0.9% 10ML FLUSH IV SCH (21:55)
[2021-01-18] MEDS: dexAMETHasone 6 MG in SYRINGE 0 ML IV SCH (06:24)
[2021-01-18] MEDS: ceFAZolin 2000MG 2,000 MG/15 ML SYR IV SCH ×2 (06:24→14:37)
[2021-01-18 07:27] LABS: Creatinine Clr Calc Pharmacy 43.3 ml/min; Est GFR (African American) 58.4 ml/min; Est GFR (Non-African American) 50.4 ml/min
[2021-01-18] MEDS: guaiFENesin 600 MG TABCR PO SCH ×2 (07:32→20:44)
[2021-01-18] MEDS: FLUTICASONE/VILANTEROL 100/25MCG 14 PUFFS/INHALER INH SCH (07:32)
[2021-01-18] MEDS: carvediloL 6.25 MG TAB PO SCH ×2 (07:32→20:45)
[2021-01-18] MEDS: amLODIPine BESYLATE 5 MG TAB PO SCH (07:33)
[2021-01-18] MEDS: LOSARTAN POTASSIUM 50 MG TAB PO SCH (07:33)
[2021-01-18] MEDS: ATORVASTATIN 40 MG TAB PO SCH (07:33)
[2021-01-18] MEDS: CLOPIDOGREL BISULFATE 75 MG TAB PO SCH (07:33)
[2021-01-18] MEDS: PANTOprazole 40 MG TAB PO SCH (07:33)
[2021-01-18] MEDS: ENOXAPARIN INJ 40 MG/0.4 ML SYR SQ SCH (07:34)
[2021-01-18] MEDS: ALBUTEROL HFA 8 GM INHALER INH SCH ×4 (07:37→19:07)
--- NOTE | 2021-01-18 09:45 | Hospitalist Progress Note ---
Date of Service January 18, 2021 Assessment & Plan (1) Acute respiratory failure due to COVID-19: Plan: Secondary to Covid pneumonia. See plan below (2) Pneumonia due to COVID-19 virus: Plan: Continue with remdesivir/Decadron. Currently remains on 2 L of oxygen at rest. Chest x-ray recently taken on 913 reveals progressed infiltrates. He does report feeling improved Encourage incentive spirometer, proning. Cont supportive care. 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 Presumed to be asthma versus COPD and contributing to shortness of breath. Continue bronchodilator therapy including treatments above. (4) Hypertension: Plan: Uncontrolled, Continue losartan 100 mg daily, amlodipine 10 mg daily and Coreg twice daily Added daily Lasix to help with BP and keep fluid balance net negative. Monitor lytes and renal function. Added low dose spironolactone. consider workup for secondary hypertension including PSG as outpatient. (5) Gram-positive cocci in clusters: Plan: Proven not MRSA by PCR. Blood culture: Coag neg staph not lugdunensis, Gram positive cocci clusters Antibiotics stopped, continue to monitor. (6) DVT prophylaxis: Plan: Lovenox Full code Disposition-continue hospital status with plans for home when improved off oxyge n. Loren Flanagan DO [facility] Hospitalist Admission and Anticipated Discharge Date Admission Date: January 15, 2021 Subjective 80 yo M admitted with covid pneumonia, worsening infiltrates on recent chest x- ray 2 days ago. Currently tolerating medical therapy, reports feeling well. Oxygenating 93% on 2 L/min. Appears very winded when he speaks, reports he has had this conversational dyspnea all his life. Denies pain or other issues at this time Review of Systems Review of Systems: At least ten systems were reviewed and negative except as indicated in HPI above. Physical Exam Physical Exam: CONSTITUTIONAL: WNWD, vitals as above, generally well- appearing EYES: normal, no scleral icterus ENT: external ear and nose normal, MMM RESPIRATORY: rales/wheezing at bases bilaterally-improved, no crackles, normal respiratory effort, increased conversational dyspnea CARDIOVASCULAR: regular rate and rhythm, S1 and 2 heard without murmurs, gallops or rubs, no JVD, no peripheral edema CHEST: inspection of chest was normal GASTROINTESTINAL: soft, protuberant, nontender, ND MUSCULOSKELETAL: strength 5/5 throughout, head is normocephalic and atraumatic SKIN: warm and dry NEUROLOGIC: CN 2-12 grossly intact, normal cognition, normal speech, no tremor, no gross focal deficits. PSYCHIATRIC: alert cooperative and oriented to person, place and time. Results & Data Results & Data ([facility]) Vital Signs (Past 12 Hours) Vital Signs Temp Pulse Resp BP Pulse Ox 01/18/21 07:50 36.7 C 71 22 157/71 H 92 01/18/21 07:38 76 20 91 01/18/21 05:03 36.7 C 76 18 159/65 H 91 01/17/21 22:51 36.5 C 61 18 155/73 H 95 Laboratory Results [facility] 01/17/21 01/18/21 09:03 06:15 Sodium 140 Potassium 3.8 Chloride 107 Carbon Dioxide 24 BUN 20 H Creatinine 1.19 1.34 Glucose 156 H Calcium 8.4 L Medications Administered Current Inpatient Medications Acetaminophen (Acetaminophen 325 Mg Tab) 325 mg PO Q6H PRN PRN Reason: Mild Pain Stop: 02/14/21 03:15 Albuterol (Albuterol Hfa 8 Gm Inhaler) 2 puffs INH QIDR [facility] Stop: 02/14/21 06:59 Last Admin: 01/18/21 07:37 Dose: 2 puffs Documented by: Amlodipine Besylate (Amlodipine Besylate 5 Mg Tab) 10 mg PO DAILY [facility] Stop: 02/15/21 02:59 Last Admin: 01/17/21 07:46 Dose: 10 mg Documented by: Atorvastatin Calcium (Atorvastatin 40 Mg Tab) 40 mg PO QAM [facility] Stop: 02/14/21 08:59 Last Admin: 01/18/21 07:33 Dose: 40 mg Documented by: Carvedilol (Carvedilol 6.25 Mg Tab) 6.25 mg PO BID [facility] Stop: 02/15/21 02:59 Last Admin: 01/18/21 07:32 Dose: 6.25 mg Documented by: Clopidogrel Bisulfate (Clopidogrel Bisulfate 75 Mg Tab) 75 mg PO DAILY [facility] Stop: 02/14/21 08:59 Last Admin: 01/18/21 07:33 Dose: 75 mg Documented by: Enoxaparin Sodium (Enoxaparin Inj 40 Mg/0.4 Ml Syr) 40 mg SQ QAM [facility] Stop: 02/14/21 08:59 Last Admin: 01/18/21 07:34 Dose: 40 mg Documented by: Fluticasone/Vilanterol (Fluticasone/Vilanterol 100/25mcg 14 Puffs/Inhaler) 1 puffs INH DAILY [facility] Stop: 02/14/21 08:59 Last Admin: 01/18/21 07:32 Dose: 1 puffs Documented by: Guaifenesin (Guaifenesin 600 Mg Tabcr) 600 mg PO Q12 [facility] Stop: 02/14/21 20:59 Last Admin: 01/18/21 07:32 Dose: 600 mg Documented by: Hydralazine HCl (Hydralazine Hcl 20 Mg/Ml Vial) 10 mg IV Q6H PRN PRN Reason: SBP>165 Stop: 02/14/21 16:55 Last Admin: 01/17/21 05:37 Dose: 10 mg Documented by: Remdesivir 100 mg/ Sodium (Chloride) 250 mls @ 250 mls/hr IV Q24H [facility]; Protocol Stop: 01/18/21 20:59 Last Infusion: 01/17/21 22:47 Dose: Infused Documented by: Promethazine HCl 12.5 mg/ (Sodium Chloride) 50.5 mls @ 202 mls/hr IV Q6H PRN PRN Reason: Nausea And Vomiting Stop: 02/14/21 03:15 Dexamethasone 6 mg/ Syringe 1.5 mls @ 1 mls/min IV Q24H [facility] Stop: 02/16/21 05:59 Last Admin: 01/18/21 06:24 Dose: 1 mls/min Documented by: Cefazolin Sodium (Ancef 2000mg) 2,000 mg in 15 mls @ 3.75 mls/min IV Q8H [facility] Stop: 01/31/21 21:59 Last Admin: 01/18/21 06:24 Dose: 3.75 mls/min Documented by: Losartan Potassium (Losartan Potassium 50 Mg Tab) 100 mg PO DAILY [facility] Stop: 02/14/21 08:59 Last Admin: 01/18/21 07:33 Dose: 100 mg Documented by: Pantoprazole Sodium (Pantoprazole 40 Mg Tab) 40 mg PO DAILY [facility] Stop: 02/14/21 08:59 Last Admin: 01/18/21 07:33 Dose: 40 mg Documented by: Sodium Chloride (Sodium Chloride 0.9% 10ml Flush) 30 ml IV Q24H [facility] Stop: 01/19/21 05:31 Last Admin: 01/17/21 21:55 Dose: 30 ml Documented by: Terazosin HCl (Terazosin Hcl 1 Mg Cap) 2 mg PO HS [facility] Stop: 02/14/21 20:59 Last Admin: 01/17/21 20:44 Dose: 2 mg Documented by:
[2021-01-18] MEDS: REMDESIVIR 100 MG in SODIUM CHLORIDE 0.9% 230 ML IV SCH (19:15)
[2021-01-18] MEDS: SODIUM CHLORIDE 0.9% 10ML FLUSH IV SCH (20:32)
[2021-01-18] MEDS: TERAZOSIN HCL 1 MG CAP PO SCH (20:44)
[2021-01-19] MEDS: ALBUTEROL HFA 8 GM INHALER INH SCH ×4 (05:38→19:31)
[2021-01-19] MEDS: dexAMETHasone 6 MG in SYRINGE 0 ML IV SCH (05:38)
[2021-01-19 07:09] LABS: Hematocrit (blood only) 41.5 % (42-52); Hemoglobin 13.9 g/dL (14.0-18.0); Mean Corpuscular Hemoglobin 30.3 pg (25-34); Mean Corpuscular Hgb Conc 33.5 g/dL (32-36); Mean Corpuscular Volume 90.6 fL (80-100); Mean Platelet Volume 10.9 fL (7.4-10.4); Platelet Count 232 K/uL (130-400); RDW Coefficient of Variation 14.1 % (11.5-14.5); RDW Standard Deviation 46.4 fL (36.4-46.3); Red Blood Count 4.58 M/uL (4.7-6.1); White Blood Count 10.04 K/uL (4.8-10.8)
[2021-01-19 07:49] LABS: C Reactive Protein 1.6 mg/dl (0-0.29); Calcium 8.5 mg/dl (8.5-10.1); Creatinine Clr Calc Pharmacy 47.2 ml/min; Est GFR (African American) 64.8 ml/min; Est GFR (Non-African American) 55.9 ml/min; Magnesium 2.5 mg/dl (1.8-2.4); Potassium 4.9 mmol/L (3.5-5.1)
[2021-01-19] MEDS: CLOPIDOGREL BISULFATE 75 MG TAB PO SCH (09:00)
[2021-01-19] MEDS: LOSARTAN POTASSIUM 50 MG TAB PO SCH (09:00)
[2021-01-19] MEDS: amLODIPine BESYLATE 5 MG TAB PO SCH (09:00)
[2021-01-19] MEDS: guaiFENesin 600 MG TABCR PO SCH ×2 (09:01→21:49)
[2021-01-19] MEDS: carvediloL 6.25 MG TAB PO SCH ×2 (09:01→21:49)
[2021-01-19] MEDS: PANTOprazole 40 MG TAB PO SCH (09:01)
[2021-01-19] MEDS: ATORVASTATIN 40 MG TAB PO SCH (09:01)
[2021-01-19] MEDS: ENOXAPARIN INJ 40 MG/0.4 ML SYR SQ SCH (09:02)
[2021-01-19] MEDS: FLUTICASONE/VILANTEROL 100/25MCG 14 PUFFS/INHALER INH SCH (09:02)
[2021-01-19] MEDS: SPIRONOLACTONE 12.5 MG TAB PO SCH (11:35)
[2021-01-19] MEDS: FUROSEMIDE 20 MG in SYRINGE 0 ML IV SCH (11:35)
--- NOTE | 2021-01-19 18:19 | Hospitalist Progress Note ---
Date of Service January 19, 2021 Assessment & Plan (1) Acute respiratory failure due to COVID-19: Plan: Secondary to Covid pneumonia. See plan below (2) Pneumonia due to COVID-19 virus: Plan: Continue with remdesivir. Stop decadron at this time. TReat anxiety with Xanax and would give more overnight if needed. Two step ordered for am. Expect he will go home on oxygen. Encourage incentive spirometer, proning. Cont supportive care. 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 Presumed to be asthma versus COPD and contributing to shortness of breath. 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 (4) Hypertension: Plan: Uncontrolled, Continue losartan 100 mg daily, amlodipine 10 mg daily and Coreg twice daily Added daily Lasix to help with BP and keep fluid balance net negative. Monitor lytes and renal function. Added low dose spironolactone. consider workup for secondary hypertension including PSG as outpatient. Tonight, significant agitation/anxiety contributing. (5) Gram-positive cocci in clusters: Plan: Proven not MRSA by PCR. Blood culture: Coag neg staph not lugdunensis, Gram positive cocci clusters Antibiotics stopped, doing well overnight. (6) DVT prophylaxis: Plan: Lovenox Full code Disposition-to home with supplemental oxygen in am. Loren Flanagan DO [facility] Hospitalist Admission and Anticipated Discharge Date Admission Date: January 15, 2021 Subjective 80 yo M admitted with covid pneumonia severe anxiety today on exam he is agitated and expressing a strong desire to go home he is mentally clear feels his breathing is good Review of Systems Review of Systems: At least ten systems were reviewed and negative except as indicated in HPI above. Physical Exam Physical Exam: CONSTITUTIONAL: WNWD, vitals as above, agitated, anxious, appears almost panicked. EYES: normal, no scleral icterus ENT: external ear and nose normal, MMM RESPIRATORY: rales/wheezing at bases bilaterally, no crackles, normal respiratory effort, increased conversational dyspnea CARDIOVASCULAR: regular rate and rhythm, S1 and 2 heard without murmurs, gallops or rubs, no JVD, no peripheral edema CHEST: inspection of chest was normal GASTROINTESTINAL: soft, protuberant, nontender, ND MUSCULOSKELETAL: strength 5/5 throughout, head is normocephalic and atraumatic SKIN: warm and dry NEUROLOGIC: CN 2-12 grossly intact, normal cognition, normal speech, no tremor, no gross focal deficits. PSYCHIATRIC: alert cooperative and oriented to person, place and time. Results & Data Results & Data ([facility]) Vital Signs (Past 12 Hours) Vital Signs Temp Pulse Resp BP Pulse Ox 01/19/21 16:22 36.5 C 62 20 136/81 95 01/19/21 15:43 62 20 96 01/19/21 11:31 92 H 20 97 01/19/21 09:07 36.8 C 73 22 177/78 H 95 Laboratory Results Short CBC 01/19/21 Range/Units 06:32 WBC 10.04 (4.8-10.8) K/uL Hgb 13.9 L (14.0-18.0) g/dL Hct 41.5 L (42-52) % Plt Count 232 (130-400) K/uL BMP 01/19/21 06:32 Sodium 140 Potassium 4.9 D Chloride 107 Carbon Dioxide 29 BUN 22 H Creatinine 1.23 Glucose 91 Calcium 8.5 Medications Administered Current Inpatient Medications Acetaminophen (Acetaminophen 325 Mg Tab) 325 mg PO Q6H PRN PRN Reason: Mild Pain Stop: 02/14/21 03:15 Albuterol (Albuterol Hfa 8 Gm Inhaler) 2 puffs INH QIDR [facility] Stop: 02/14/21 06:59 Last Admin: 01/19/21 15:42 Dose: 2 puffs Documented by: Amlodipine Besylate (Amlodipine Besylate 5 Mg Tab) 10 mg PO DAILY [facility] Stop: 02/15/21 02:59 Last Admin: 01/19/21 09:00 Dose: 10 mg Documented by: Atorvastatin Calcium (Atorvastatin 40 Mg Tab) 40 mg PO QAM [facility] Stop: 02/14/21 08:59 Last Admin: 01/19/21 09:01 Dose: 40 mg Documented by: Carvedilol (Carvedilol 6.25 Mg Tab) 6.25 mg PO BID [facility] Stop: 02/15/21 02:59 Last Admin: 01/19/21 09:01 Dose: 6.25 mg Documented by: Clopidogrel Bisulfate (Clopidogrel Bisulfate 75 Mg Tab) 75 mg PO DAILY [facility] Stop: 02/14/21 08:59 Last Admin: 01/19/21 09:00 Dose: 75 mg Documented by: Enoxaparin Sodium (Enoxaparin Inj 40 Mg/0.4 Ml Syr) 40 mg SQ QAM [facility] Stop: 02/14/21 08:59 Last Admin: 01/19/21 09:02 Dose: 40 mg Documented by: Fluticasone/Vilanterol (Fluticasone/Vilanterol 100/25mcg 14 Puffs/Inhaler) 1 puffs INH DAILY [facility] Stop: 02/14/21 08:59 Last Admin: 01/19/21 09:02 Dose: 1 puffs Documented by: Guaifenesin (Guaifenesin 600 Mg Tabcr) 600 mg PO Q12 [facility] Stop: 02/14/21 20:59 Last Admin: 01/19/21 09:01 Dose: 600 mg Documented by: Hydralazine HCl (Hydralazine Hcl 20 Mg/Ml Vial) 10 mg IV Q6H PRN PRN Reason: SBP>165 Stop: 02/14/21 16:55 Last Admin: 01/17/21 05:37 Dose: 10 mg Documented by: Promethazine HCl 12.5 mg/ (Sodium Chloride) 50.5 mls @ 202 mls/hr IV Q6H PRN PRN Reason: Nausea And Vomiting Stop: 02/14/21 03:15 Dexamethasone 6 mg/ Syringe 1.5 mls @ 1 mls/min IV Q24H [facility] Stop: 02/16/21 05:59 Last Admin: 01/19/21 05:38 Dose: 1 mls/min Documented by: Furosemide 20 mg/ Syringe 2 mls @ 4 mls/min IV DAILY [facility] Stop: 02/18/21 08:59 Last Admin: 01/19/21 11:35 Dose: 4 mls/min Documented by: Losartan Potassium (Losartan Potassium 50 Mg Tab) 100 mg PO DAILY [facility] Stop: 02/14/21 08:59 Last Admin: 01/19/21 09:00 Dose: 100 mg Documented by: Pantoprazole Sodium (Pantoprazole 40 Mg Tab) 40 mg PO DAILY [facility] Stop: 02/14/21 08:59 Last Admin: 01/19/21 09:01 Dose: 40 mg Documented by: Spironolactone (Spironolactone 12.5 Mg Tab) 12.5 mg PO DAILY [facility] Stop: 02/18/21 08:59 Last Admin: 01/19/21 11:35 Dose: 12.5 mg Documented by: Terazosin HCl (Terazosin Hcl 1 Mg Cap) 2 mg PO HS [facility] Stop: 02/14/21 20:59 Last Admin: 01/18/21 20:44 Dose: 2 mg Documented by:
[2021-01-19] MEDS ORDERED: ALPRAZolam 0.5 MG TABLET PO STA (19:51)
[2021-01-19] MEDS: TERAZOSIN HCL 1 MG CAP PO SCH (21:49)
[2021-01-20] MEDS: ALBUTEROL HFA 8 GM INHALER INH SCH ×3 (08:07→15:23)
[2021-01-20] MEDS: ENOXAPARIN INJ 40 MG/0.4 ML SYR SQ SCH (09:40)
[2021-01-20] MEDS: ATORVASTATIN 40 MG TAB PO SCH (09:40)
[2021-01-20] MEDS: CLOPIDOGREL BISULFATE 75 MG TAB PO SCH (09:41)
[2021-01-20] MEDS: SPIRONOLACTONE 12.5 MG TAB PO SCH (09:41)
[2021-01-20] MEDS: amLODIPine BESYLATE 5 MG TAB PO SCH (09:41)
[2021-01-20] MEDS: FUROSEMIDE 20 MG in SYRINGE 0 ML IV SCH (09:41)
[2021-01-20] MEDS: LOSARTAN POTASSIUM 50 MG TAB PO SCH (09:41)
[2021-01-20] MEDS: guaiFENesin 600 MG TABCR PO SCH (09:42)
[2021-01-20] MEDS: PANTOprazole 40 MG TAB PO SCH (09:42)
[2021-01-20] MEDS: FLUTICASONE/VILANTEROL 100/25MCG 14 PUFFS/INHALER INH SCH (09:43)
[2021-01-20] MEDS: carvediloL 6.25 MG TAB PO SCH (09:43)
--- NOTE | 2021-01-20 10:13 | Discharge Summary ---
Date of Service January 20, 2021 Admission HPI Per Admitting Provider History obtained from patient and records. Medical history significant for nonocclusive CAD, PVD status post surgery, hypertension, hyperlipidemia, asthma/COPD/VALARIE (CPAP noncompliance) as per records, GERD, past tobacco abuse. Last confinement November 2019 for bronchitis. 1 week history dry cough symptoms with chest discomfort from coughing. Associated chills. recently confined for COVID-19 pneumonia. Patient and have not received COVID-19 vaccination. Poor appetite at home. Lowest O2 sats at the ER 90 on room air. Decadron and neb treatment given at the ER. Patient feeling a little better since arrival. 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 Admission Exam Per Admitting Provider GENERAL: Slightly uncomfortable, minimal respiratory distress, obese, dysphonic SKIN: Normal color, warm HEENT: Alopecia, [place] palpebral conjunctivae, no ptosis, dry buccal mucosa, nasal cannula in place NECK : Supple, short neck, no tenderness CHEST : Decreased breath sounds, expiratory wheezes, no tenderness HEART : RRR, no obvious murmurs ABDOMEN: Some distention, nontender EXTREMITIES : No LE swelling/tenderness, no other conspicuous deformities noted NEUROLOGIC : Coherent, no facial asymmetry, no other gross focality Principal Diagnosis Acute respiratory failure secondary to Covid pneumonia Occupational lung disorder with chronic wheezing Hypertension Abnormal blood culture Discharge Exam CONSTITUTIONAL: WNWD, vitals as above, NAD EYES: normal, no scleral icterus ENT: external ear and nose normal, MMM RESPIRATORY: rales/wheezing at bases bilaterally, no crackles, normal respiratory effort, increased conversational dyspnea CARDIOVASCULAR: regular rate and rhythm, S1 and 2 heard without murmurs, gallops or rubs, no JVD, no peripheral edema CHEST: inspection of chest was normal GASTROINTESTINAL: soft, protuberant, nontender, [place] MUSCULOSKELETAL: strength 5/5 throughout, head is normocephalic and atraumatic SKIN: warm and dry NEUROLOGIC: CN 2-12 grossly intact, normal cognition, normal speech, no tremor, no gross focal deficits. PSYCHIATRIC: alert cooperative and oriented to person, place and time. Discharge Data Allergies Allergy/AdvReac Type Severity Reaction Status Date / Time No Known Allergies Allergy Unverified 01/14/21 22:36 Consultations 01/15/21 00:24 ED Decision to Admit Stat Ordered Studies Laboratory Results WBC 10.04 K/uL (4.8-10.8) 01/19/21 06:32 RBC 4.58 M/uL (4.7-6.1) L 01/19/21 06:32 Hgb 13.9 g/dL (14.0-18.0) L 01/19/21 06:32 Hct 41.5 % (42-52) L 01/19/21 06:32 MCV 90.6 fL (80-100) 01/19/21 06:32 MCH 30.3 pg (25-34) 01/19/21 06:32 MCHC 33.5 g/dL (32-36) 01/19/21 06:32 RDW Std Deviation 46.4 fL (36.4-46.3) H 01/19/21 06:32 RDW Coeff of Tay 14.1 % (11.5-14.5) 01/19/21 06:32 Plt Count 232 K/uL (130-400) 01/19/21 06:32 MPV 10.9 fL (7.4-10.4) H 01/19/21 06:32 Immature Gran % (Auto) 0.2 % 01/17/21 09:03 Neut % (Auto) 93.5 % 01/17/21 09:03 Lymph % (Auto) 6.1 % 01/17/21 09:03 [place] % (Auto) 0.1 % 01/17/21 09:03 Eos % (Auto) 0.0 % 01/17/21 09:03 Baso % (Auto) 0.1 % 01/17/21 09:03 Neut # (Auto) 11.90 K/uL (1.4-6.5) H 01/17/21 09:03 Lymph # (Auto) 0.77 K/uL (1.2-3.4) L 01/17/21 09:03 [place] # (Auto) 0.01 K/uL (0.11-0.59) L 01/17/21 09:03 Eos # (Auto) 0.00 K/uL (0-0.5) 01/17/21 09:03 Baso # (Auto) 0.01 K/uL (0-0.2) 01/17/21 09:03 Immature Gran # (Auto) 0.02 K/uL (0.00-0.02) 01/17/21 09:03 Giant Platelets 1+ 01/14/21 22:49 PT 9.8 Seconds (9.0-12.0) 01/14/21 22:49 INR 1.0 (0.9-1.1) 01/14/21 22:49 APTT 25.2 Seconds (21.0-31.0) 01/14/21 22:49 PTT Ratio 1.0 01/14/21 22:49 Sodium 140 mmol/L (136-145) 01/19/21 06:32 Potassium 4.9 mmol/L (3.5-5.1) D 01/19/21 06:32 Chloride 107 mmol/L (98-107) 01/19/21 06:32 Carbon Dioxide 29 mmol/L (21-32) 01/19/21 06:32 Anion Gap 5.0 (3-11) 01/19/21 06:32 BUN 22 mg/dl (7-18) H 01/19/21 06:32 Creatinine 1.23 mg/dl (0.6-1.4) 01/19/21 06:32 Est Cr Clr Drug Dosing 47.2 ml/min 01/19/21 06:32 Est GFR ( Amer) 64.8 ml/min 01/19/21 06:32 Est GFR (Non-Af Amer) 55.9 ml/min 01/19/21 06:32 BUN/Creatinine Ratio 18.0 (10-20) 01/19/21 06:32 Glucose 91 mg/dl (70-99) 01/19/21 06:32 Estimat Average Glucose 131 mg/dl 01/14/21 22:49 Hemoglobin A1c 6.2 % (4.5-5.6) H 01/14/21 22:49 Lactate 1.9 mmol/L (0.4-2.0) 01/14/21 23:10 Calcium 8.5 mg/dl (8.5-10.1) 01/19/21 06:32 Magnesium 2.5 mg/dl (1.8-2.4) H 01/19/21 06:32 Total Bilirubin 0.6 mg/dl (0.2-1) 01/15/21 07:48 AST 43 U/L (15-37) H 01/15/21 07:48 ALT 49 U/L (12-78) 01/15/21 07:48 Alkaline Phosphatase 131 U/L (45-117) H 01/15/21 07:48 Troponin I < 0.015 ng/ml (0-0.045) 01/14/21 22:49 C-Reactive Protein 1.60 mg/dl (0-0.29) H 01/19/21 06:32 NT-Pro-B Natriuret Pep 447 pg/ml (0-1800) 01/14/21 22:49 Total Protein 7.4 gm/dl (6.4-8.2) 01/15/21 07:48 Albumin 3.0 gm/dl (3.4-5.0) L 01/15/21 07:48 Globulin 4.4 gm/dl (2.5-4.0) H 01/15/21 07:48 Albumin/Globulin Ratio 0.7 (0.9-2) L 01/15/21 07:48 Specimen Hemolysis 01/19/21 06:32 COVID-19 Eval Order Covid19 at [facility] 01/14/21 22:50 SARS-CoV-2 (PCR) POSITIVE (Negative) A* 01/14/21 22:50 Bld Cult Staph aureus PCR Negative (Negative) 01/14/21 20:49 Blood Culture MRSA PCR Negative (Negative) 01/14/21 20:49 Impressions Chest X-Ray 01/16/21 02:57 XR chest 1V portable HISTORY: Shortness of breath. Covid positive. COMPARISON: Chest 01/14/2021. FINDINGS: There are low lung volumes. No pneumothorax. No pleural effusions. The cardiac silhouette remains borderline enlarged. There are patchy bibasilar airspace opacities, left greater than right. This has slightly progressed in the interval. No evidence for pulmonary edema. IMPRESSION: Patchy bibasilar airspace opacities consistent with a viral pneumonia. This has slightly progressed in the interval. ACT 112: Negative or not required by law. Electronically signed by: Marlon Lobo M.D. 01/16/2021 9:43 AM Hospital Course (1) Acute respiratory failure due to COVID-19: (2) Pneumonia due to COVID-19 virus: (3) Occupational lung disorder: (4) Hypertension: (5) Gram-positive cocci in clusters: The patient is a 80-year-old man with a history of occupational lung injury and chronic wheezing who presented with dyspnea and was found to have COVID-19 pneumonia. He is unvaccinated and does not typically wear oxygen. Work-up revealed no leukocytosis or concerning anemia. He had a normal platelet count. No coagulopathy was seen. He had no significant electrolyte abnormality or kidney failure. There was no concerning liver enzyme elevation. Cardiac en zyme testing was not consistent with acute cardiac injury. The chest x-ray revealed bilateral lower lobe pneumonia. He was in mild respiratory distress and was wheezing quite a bit. He was given nebulized bronchodilator therapy and IV Decadron. He was also given IV ceftriaxone as empiric antibiotic coverage. [facility] He was continued on Decadron therapy daily during his hospital stay and started on remdesivir daily. Home carvedilol was decreased secondary to bradycardia to 6.25 mg p.o. twice daily. As a result of this, untreated VALARIE, and Decadron therapy, as well as other stress factors, his blood pressure was elevated and difficult to control. He was started on spironolactone 12.5 mg p.o. daily with success. Blood cultures revealed evidence of possible contaminant and repeat blood cultures were drawn prior to discharge and are pending at time of discharge. He was empirically placed on ceftriaxone which was then switched to cefazolin with antibiotics discontinued greater than 48 hours prior to discharge. He was not clinically ill or febrile prior to discharge. Repeat blood culture should be followed up by primary care doctor on follow-up. He continued to improve from a clinical standpoint and although he was not completely off oxygen, he developed significant agitation and anxiety requiring Xanax therapy likely secondary to the steroids and claustrophobia of the hospital stay. He requested to go home as soon as possible. On day of discharge a two-step was performed revealing the need for 3 L/min of supplemental oxygen with ambulation. He was oxygenating 88% or greater at rest. Supplemental oxygen was ordered for him prior to discharge. He was overall feeling well, tolerating p.o., hemodynamically stable and af ebrile and ambulating at baseline. He was counseled on the importance of wearing his oxygen with ambulation as his heart could fail if he becomes hypoxic for too long a time. He verbalized understanding with intent to comply. He is a noted non-smoker. Steroids were also stopped with help with agitation and will not be continued in the home environment. Wheezing was minimal to none at time of discharge. Close primary care follow-up recommended. In addition, a repeat chest x-ray in 4 to 6 weeks is recommended to ensure complete resolution of pneumonia. Additionally, a repeat BMP in 2 weeks is recommended after starting spironolactone. Total Time Total Time Spent Total Time Spent (In Minutes): 60 Discharge Plan Discharge Items Patient Disposition: Home - Self-Care Reason For Visit: RESP FAILURE COVID Discharge Diagnosis: Acute respiratory failure secondary to Covid pneumonia Occupational lung disorder with chronic wheezing Hypertension Abnormal blood culture Condition on Discharge: Fair Activity: Resume your previous activity Non-emergency contact: Primary Care Provider Call non-emergency contact if: you have any medication questions and your symptoms worsen Follow-up/Referrals: Karsten Hendricks MD [Outside Practitioners] - (Date & Time 01/27/2021 11:00 AM Provider Karsten Hendricks MD Department [facility] ) Diet: Low Sodium (2gm) Addtl Attending Provider Instructions: Please take all medications as instructed on discharge list below. During the hospital stay your blood pressure was elevated and your blood pressure medications were changed. Specifically your Coreg was changed in dosing and spironolactone was added. As a result of these changes please ensure a 1 week follow-up with your primary care doctor to check your heart rate and blood pressure and to order blood work in the next 2 weeks. This will be to monitor your kidney function and electrolytes after the change. You were diagnosed with Covid 19 associated pneumonia. This is a viral pneumonia that does not require antibiotic therapy. You are requiring oxygen at the time of discharge with any ambulation. This is expected to improve over the next week or so. Please utilize the oxygen until titrated off per your physician. Please observe isolation rules as advised by the CDC. Specifically you should remain in home isolation until you are asymptomatic and 10 days beyond symptom onset. Please continue to observe all masking requirements and social distancing recommendations. While you are in the hospital you had a blood culture drawn which was abnormal. Those results are still preliminary at the time of discharge. It is likely that the bacteria seen was a contaminant. You are not being discharged on antibiotic therapy. Repeat blood cultures were drawn prior to discharge and will be pending. This should be followed up with your primary care doctor when you see them in the office in a week. If you develop fevers, chills or worsening of your symptoms, please seek immediate medical attention. It was a pleasure taking care of you! Please call if you have any questions or problems. You can reach a [facility] hospitalist on duty at [facility] 24 hours a day by calling [phone]. Take care of yourself. Loren Flanagan, DO [facility] Pending Studies at Discharge: Yes Stand-Alone Forms: My [facility] Medications and DC Order Prescriptions: New carvedilol 6.25 mg Tablet 6.25 mg PO BID Qty: 60 RF: 0 spironolactone 25 mg Tablet 12.5 mg PO DAILY Qty: 30 RF: 0 (DME) Oxygen Home Liters Per Minute See Rx Instructions .Route Qty: 1 RF: 0 Continued clopidogrel [Plavix] 75 mg Tablet 75 mg PO DAILY RF: 0 furosemide [Lasix] 20 mg Tablet 20 mg PO DAILY RF: 0 losartan 100 mg Tablet 100 mg PO DAILY RF: 0 amlodipine 10 mg Tablet 10 mg PO DAILY RF: 0 albuterol sulfate 90 mcg/actuation Hfa Aerosol Inhaler 2 puff INHALATION Q4H PRN (Reason: Wheezing) RF: 0 atorvastatin 40 mg Tablet 40 mg PO QAM Qty: 30 RF: 0 pantoprazole 20 mg Tablet,Delayed Release (Dr/Ec) 20 mg PO DAILY RF: 0 terazosin 2 mg Capsule 2 mg PO HS RF: 0 fluticasone propion-salmeterol [Advair Diskus] 100-50 mcg/dose blister with device 1 inh INHALATION BID RF: 0 Discontinued carvedilol 25 mg Tablet 25 mg PO QAM RF: 0 carvedilol 25 mg Tablet 12.5 mg PO PM RF: 0 Discharge Orders: Discharge Order (Routine); Ordered 01/20/21 Ordered By: Loren Marinelli/Other Patient Handouts: A1C, Prediabetes, 5 Steps for Eating Healthier Admission Data Admit Date/Time: 01/15/21 01:51 Attending Provider: Loren Flanagan Admit Provider: Markus Almanzar Primary Care Provider: PCP,NO Other Providers: Markus Almanzar
== END 2021-01-20 16:19 | disposition home or self-care (01) | DRG 177 ==
LOC: ED 21:45 → SUATTDRO 01-15 01:51 → 2S 01-15 01:51 → 3E 01-19 01:37